=== PATIENT | male | born 1955 | race Caucasian/White ===

== ENCOUNTER 2018-10-09 12:27 | Inpatient (IN) ==
[2018-10-09 12:49] VITALS: BMI 38.0
[2018-10-09 13:33] LABS: BASOPHILS # (AUTO) 0.1 X10^3/uL (0.0-0.1); BASOPHILS % (AUTO) 0.5 % (0.2-1.0); EOSINOPHILS # (AUTO) 0.5 x10^3/uL (0.0-0.2); EOSINOPHILS % (AUTO) 2.5 % (0.9-2.9); HEMATOCRIT 44.9 % (42.0-54.0); HEMOGLOBIN 14.9 g/dL (13.5-18.0); LYMPHOCYTES # (AUTO) 3.4 X10^3/uL (1.3-2.9); LYMPHOCYTES % (AUTO) 18.3 % (21.0-51.0); MEAN CORPUSCULAR HEMOGLOBIN 29.1 pg (27.0-34.0); MEAN CORPUSCULAR HGB CONC 33.2 g/dL (33.0-35.0); MEAN CORPUSCULAR VOLUME 87.5 fL (80.0-100.0); MEAN PLATELET VOLUME 7.1 fL (7.4-11.0); MONOCYTES # (AUTO) 1.1 x10^3/uL (0.3-0.8); MONOCYTES % (AUTO) 6.1 % (0.0-13.0); NEUTROPHILS # (AUTO) 13.5 x10^3/uL (2.2-4.8); NEUTROPHILS % (AUTO) 72.6 % (42.0-75.0); PLATELET COUNT 403 X10^3/uL (150.0-450.0); RED BLOOD COUNT 5.14 X10^6/uL (4.7-6.0); RED CELL DISTRIBUTION WIDTH 15.3 % (11.6-16.5); WHITE BLOOD COUNT 18.6 X10^3/uL (3.6-10.0)
[2018-10-09 13:39] LABS: ACETAMINOPHEN 2.9 ug/mL (10-30); SALICYLATE < 2.8 mg/dL (2.8-20)
[2018-10-09 13:43] LABS: LACTIC ACID 0.5 mmol/L (0.4-2.0)
[2018-10-09 13:47] LABS: ALANINE AMINOTRANSFERASE 23 Units/L (12-78); ALBUMIN 2.8 g/dL (3.4-5.0); ALKALINE PHOSPHATASE 87 Units/L (46-116); ASPARTATE AMINO TRANSFERASE 10 Units/L (15-37); BLOOD ALCOHOL < 3 mg/dL (0-19.9); BLOOD UREA NITROGEN 8 mg/dL (7-18); CALCIUM 9.4 mg/dL (8.5-10.1); CARBON DIOXIDE 29.3 mmol/L (21-32); CHLORIDE 99 mmol/L (98-107); COR CA(FOR HYPOALB) 10.4 mg/dL (8.5-10.1); COR NA(FOR HYPERGLY) 136 mmol/L (136-145); CREATININE 0.51 mg/dL (0.70-1.30); SODIUM 135 mmol/L (136-145); TOTAL PROTEIN 6.9 g/dL (6.4-8.2); eGFR NON BLACK RACES > 60 (>60)
--- NOTE | 2018-10-09 14:07 | DR.GENAD ---
HPI Time Seen Time Seen by Provider: 10/09/18 14:05 PCP Primary Care Physician: jeri HPI Comment HPI Comment: PATIENT SAID ABSCESS STARTED DRAINING YESTERDAY. HE HAS BEING RUNNIONG FEVER AT HOME. HE IS ALSO HERE WITH AFFINDAVIT TO APPREHENT FOR MENTAL HEALTH AND TREATMENT FOR SUBSTANCE USE DISORDER. PATIENT BELIEVE HE IS INFESTED WITH DEER MITE FOR FEW BONTHS NOW. IT CAUSES ITCHING AND FEEL THESE MITES MOVING UNDER HIS SKIN. PATIENT IS A DIABETIC AND HAVE HYPERTENSION ALSO. Complaint/Symptoms Chief Complaint Doctors Comments: DRAINING ABSCESS OCCIPITAL SCALP AND CELLULITIS SCALP AND LEFT FACE. Chief Complaint:: patient stated he has had deer mites in his head for the past 6 months. he stated the back of his head had the worst infestation and it finally busted abd has been draining. Nurses notes reviewed Nurses Notes Review: Yes Source History Provided: Patient Mode of Arrival Mode of Arrival: Ambulatory Timing Onset of Chief Complaint: 09/25/18 Came on: Gradually Duration Duration: Constant Duration: Days Location Location: SCALP. Severity Severity: Moderate Other History Other History: HTN, DM. PMH PMH Past Medical History: Yes Past Medical History: COPD, Diabetes and Hypertension Past Surgical History: Yes Surgical History: Appendectomy, Bowel Resection, Cholecystectomy, Tonsillectomy and Lithotripsy Family History History of Family Medical Conditions: Yes Family Medical History: Diabetes Mellitus, SC and Hypertension Social History Does patient currently use any type of tobacco product: Yes Have you used tobacco products in the last 12 months: Yes Type of Tobacco Use: Cigarettes How many years tobacco product used: 30 Does any household member use tobacco: No Alcohol Use: None Do you use any recreational Drugs:: No Lives With: Family Lives Where: Home infectious screening In the last 2 months have you had wt loss of >10#?: YES Have you had fever, night sweats or hemotysis?: No Have you traveled outside the country in the last 6 months?: No Isolation: Standard ROS Review of Systems Constitutional: Fever Eyes: No Symptoms Reported ENTM: No Symptoms Reported Respiratoy: Non-Productive Cough Cardiovascular: No Symptoms Reported Gastrointestinal/Abdominal: No Symptoms Reported Genitourinary: No Symptoms Reported Neurological: Headache Musculoskeletal: Other (SCALP AND LEFT FACE PAIN.) Integumentary: Change in Color, Rash, Itching and Wound (ABSCESS AND CELLULITIS SCALP AND LEFT FACE.) Hematologic/Lymphatic: Easy Bleeding and Easy Bruising Endocrine: No Symptoms Reported Psychiatric: No Symptoms Reported All Other Systems: Reviewed and Negative PE Vital Signs Vitals: Temperature 98.6 F Pulse Rate [Left Brachial] 81 Pulse Rate 103 Respiratory Rate 18 Blood Pressure [Right Arm] 162/109 Blood Pressure [Left Arm] 147/97 Blood Pressure 152/95 O2 Sat by Pulse Oximetry 99 General Limitations: No Limitations General Appearance: Alert and In No Apparent Distress Head Head Exam: Atraumatic (SCALP ABSCESS AND CELLULITIS.) and Other (LEFT FACIAL CELLULITIS. ) Eyes Eye exam: Normal Appearance, PERRL and EOMI; negative Scleral Icterus and Conjunctival Injection ENT ENT Exam: Normal Oropharynx, Normal External Ear Exam and TM's Normal Bilaterally External Ear Exam: Normal External Inspection TM/Canal Exam: Bilateral: Normal Nose Exam: Normal Nose Exam Mouth Exam: Normal Inspection Throat Exam: Normal Inspection Neck Neck Exam: Trachea Midline; negative Tenderness, Meningismus and Lymphadenopathy Respiratory Respiratory Exam: Normal Lung Sounds Bilat Respiratory Exam: Bilateral: Clear to Auscultation Cardiovascular Cardiovascular Exam: Regular Rate and Normal Rhythm Abdominal Exam Abdominal Exam: Normal Bowel Sounds and Soft; negative Tenderness Extremities Extremities Exam: Normal Inspection Back Back Exam: Normal Inspection Neurologic Neurological Exam: Alert, Oriented X3 and CN II-XII Intact; negative Motor Sensory Deficit Psychiatric Psychiatric Exam: Normal Affect and Normal Mood Skin Skin Exam: Warm MDM Differential Diagnosis Differential Diagnosis: ABSCESS AND CELLULITIS SCALP AND LEFT FACE. COURSE Treatment Treatment: SEE ORDERS. Consultation Consultation Comments: SURGICAL CONSULT TO DR. CULVER. DR. NAQVI WILL ADMIT PATIENT. Education/Counseling Education/Counseling: Patient Educated On: Diagnosis ROR Labs Reviewed Laboratory Results Reviewed?: Yes Result Diagrams: 10/09/18 13:11 10/09/18 13:11 Laboratory: 10/09/18 15:12 Head Gram Stain - Final WBC 18.6 X10^3/uL (3.6-10.0) H 10/09/18 13:11 RBC 5.14 X10^6/uL (4.7-6.0) 10/09/18 13:11 Hgb 14.9 g/dL (13.5-18.0) 10/09/18 13:11 Hct 44.9 % (42.0-54.0) 10/09/18 13:11 MCV 87.5 fL (80.0-100.0) 10/09/18 13:11 MCH 29.1 pg (27.0-34.0) 10/09/18 13:11 MCHC 33.2 g/dL (33.0-35.0) 10/09/18 13:11 RDW 15.3 % (11.6-16.5) 10/09/18 13:11 Plt Count 403 X10^3/uL (150.0-450.0) 10/09/18 13:11 MPV 7.1 fL (7.4-11.0) L 10/09/18 13:11 Neut % (Auto) 72.6 % (42.0-75.0) 10/09/18 13:11 Lymph % (Auto) 18.3 % (21.0-51.0) L 10/09/18 13:11 [place] % (Auto) 6.1 % (0.0-13.0) 10/09/18 13:11 Eos % (Auto) 2.5 % (0.9-2.9) 10/09/18 13:11 Baso % (Auto) 0.5 % (0.2-1.0) 10/09/18 13:11 Neut # (Auto) 13.5 x10^3/uL (2.2-4.8) H 10/09/18 13:11 Lymph # (Auto) 3.4 X10^3/uL (1.3-2.9) H 10/09/18 13:11 [place] # (Auto) 1.1 x10^3/uL (0.3-0.8) H 10/09/18 13:11 Eos # (Auto) 0.5 x10^3/uL (0.0-0.2) H 10/09/18 13:11 Baso # (Auto) 0.1 X10^3/uL (0.0-0.1) 10/09/18 13:11 Absolute Nucleated RBC 0.0 /100WBC 10/09/18 13:11 Sodium 135 mmol/L (136-145) L 10/09/18 13:11 Corrected Sodium 136 mmol/L (136-145) 10/09/18 13:11 Potassium 3.8 mmol/L (3.5-5.1) 10/09/18 13:11 Chloride 99 mmol/L (98-107) 10/09/18 13:11 Carbon Dioxide 29.3 mmol/L (21-32) 10/09/18 13:11 BUN 8 mg/dL (7-18) 10/09/18 13:11 Creatinine 0.51 mg/dL (0.70-1.30) L 10/09/18 13:11 Est GFR (MDRD) Af Amer > 60 (>60) 10/09/18 13:11 Est GFR (MDRD) Non-Af > 60 (>60) 10/09/18 13:11 Glucose 152 mg/dL (65-99) H 10/09/18 13:11 Lactic Acid 0.5 mmol/L (0.4-2.0) 10/09/18 13:11 Calcium 9.4 mg/dL (8.5-10.1) 10/09/18 13:11 Corrected Calcium 10.4 mg/dL (8.5-10.1) H 10/09/18 13:11 Total Bilirubin 0.20 mg/dL (0.2-1.0) 10/09/18 13:11 AST 10 Units/L (15-37) L 10/09/18 13:11 ALT 23 Units/L (12-78) 10/09/18 13:11 Alkaline Phosphatase 87 Units/L (46-116) 10/09/18 13:11 Total Protein 6.9 g/dL (6.4-8.2) 10/09/18 13:11 Albumin 2.8 g/dL (3.4-5.0) L 10/09/18 13:11 Globulin 4.1 g/dL (2.5-4.5) 10/09/18 13:11 Albumin/Globulin Ratio 0.7 Ratio (1.1-2.1) L 10/09/18 13:11 Specimen Type Clean catch urine 10/09/18 14:19 Urine Color Yellow (YELLOW) 10/09/18 14:19 Urine Appearance Clear (CLEAR) 10/09/18 14:19 Urine pH 7.0 (5.0 - 8.0) 10/09/18 14:19 Ur Specific [place] 1.010 (1.000-1.030) 10/09/18 14:19 Urine Protein Negative (NEGATIVE) 10/09/18 14:19 Urine Glucose (UA) Negative (NEGATIVE) 10/09/18 14:19 Urine Ketones Negative (NEGATIVE) 10/09/18 14:19 Urine Occult Blood Negative (NEGATIVE) 10/09/18 14:19 Urine Nitrite Negative (NEGATIVE) 10/09/18 14:19 Urine Bilirubin Negative (NEGATIVE) 10/09/18 14:19 Urine Urobilinogen Normal (NORMAL) 10/09/18 14:19 Ur Leukocyte Esterase Negative (NEGATIVE) 10/09/18 14:19 Salicylates < 2.8 mg/dL (2.8-20) L 10/09/18 13:11 Urine Opiates Screen Negative (NEG=<300) 10/09/18 14:19 Urine Methadone Screen Negative (NEG=<300) 10/09/18 14:19 Acetaminophen 2.9 ug/mL (10-30) L 10/09/18 13:11 Ur Barbiturates Screen Negative (NEG=<200) 10/09/18 14:19 Ur Phencyclidine Scrn Negative (NEG=<25) 10/09/18 14:19 Ur Amphetamines Screen Positive (NEG=<1000) 10/09/18 14:19 U Benzodiazepines Scrn Negative (NEG=<200) 10/09/18 14:19 Urine Cocaine Screen Positive (NEG=<300) 10/09/18 14:19 U Marijuana (THC) Screen Negative (NEG=<50) 10/09/18 14:19 Ethyl Alcohol mg/dL < 3 mg/dL (0-19.9) 10/09/18 13:11 XRAY XRAY Interpreted by: Radiologist XRAY Findings: REPORT DISCUSS WITH PATIENT. Diagnosis Discharge Problem: Abscess or cellulitis of scalp, Cellulitis, face
[2018-10-09 14:31] LABS: BILIRUBIN,URINE NEGATIVE (NEGATIVE); BLOOD/HEMOGLOBIN,URINE NEGATIVE (NEGATIVE); GLUCOSE, URINE NEGATIVE (NEGATIVE); KETONES,URINE NEGATIVE (NEGATIVE); LEUKOCYTE ESTERASE ,URINE NEGATIVE (NEGATIVE); NITRITES,URINE NEGATIVE (NEGATIVE); PROTEIN,URINE NEGATIVE (NEGATIVE); UROBILINOGEN,URINE NORMAL (NORMAL)
[2018-10-09] MEDS ORDERED: NS 500 ML IV 500 ML IV ONE (14:34)
[2018-10-09 14:35] LABS: APPEARANCE,URINE CLEAR (CLEAR); COLOR,URINE YELLOW (YELLOW)
[2018-10-09] MEDS ORDERED: NS 1000 ML 1,000 ML ONE (15:01)
[2018-10-09] MEDS: NS 1000 ML 1,000 ML IV SCH ×2 (15:12→18:00)
--- NOTE | 2018-10-09 15:37 | CT ---
STUDY: CT HEAD WITHOUT CONTRAST HISTORY: Soft tissue deformities. Sores to soft tissue areas around head and face. TECHNIQUE: Multiple axial images of the head were obtained from the skull base to the vertex without administration of IV contrast. Automated exposure control (AEC) was utilized to adjust the MA and/or kV. COMPARISON: None. FINDINGS: The sulci, cisterns and ventricles are age appropriate. There is no evidence of acute territorial infarction, hemorrhage, mass, mass effect, or midline shift. There are no abnormal intra-axial or extra-axial fluid collections. There is abnormal soft tissue mass, with inflammatory stranding and possible abnormal fluid collection involving the left parietal scalp near the vertex. Overall, this measures approximately a 11 cm in diameter. There is a component that lies very close to the left parietal and occipital bones, which may be subgaleal in location. There is a more superficial component. There is a complex fluid collection at its tip which measures 1.4 x 2.7 cm. There is a 2nd abnormal focus of inflammatory change and possible early abscess formation overlying the posterior margin of the right zygomatic arch, anterior to the parotid gland. This measures approximately 2.8 x 1.4 cm. IMPRESSION: 1. Soft tissue masses with associated abnormal inflammatory stranding over the left parietal bone near the vertex, and over the right temporal region near the zygomatic arch. Imaging characteristics favor an infectious or inflammatory process with abscess formation. 2. No evidence of acute intracranial abnormality. Reported By:
[2018-10-09] MEDS ORDERED: VERSED ONE (15:59)
[2018-10-09] MEDS ORDERED: EPHEDRINE SULFATE INJ ONE (15:59)
[2018-10-09] MEDS ORDERED: SUPRANE IN ONE (15:59)
[2018-10-09] MEDS ORDERED: DIPRIVAN VIAL ONE (15:59)
[2018-10-09] MEDS ORDERED: LEVAQUIN PREMIX IV 750 MG 750 MG/150 ML BAG IV ONE ×2 (16:15→16:28)
[2018-10-09] MEDS ORDERED: PHARMACY CONSULT - VANCOMYCIN XX SCH (17:00)
[2018-10-09] MEDS ORDERED: VANCOMYCIN 1 GRAM PREMIX (ADDVANTAGE) 250 ML IV ONE (17:20)
[2018-10-09] MEDS ORDERED: FENTANYL INJ 100 mcg ONE ×2 (17:45→18:59)
[2018-10-09] MEDS ORDERED: VANCOMYCIN HCL 1 GM VIAL 1 G in D5W 250 ML IV 250 ML IV SCH ×2 (18:00→22:00)
[2018-10-09] MEDS ORDERED: DILAUDID INJ IVP PRN (19:47)
[2018-10-09] MEDS ORDERED: PHENERGAN INJ 25 MG IVP PRN (19:47)
[2018-10-09] MEDS ORDERED: REGLAN INJ 10 MG VIAL IVP PRN (19:47)
[2018-10-09] MEDS ORDERED: ZOFRAN INJ 4 MG VIAL IVP PRN (19:47)
[2018-10-09] MEDS ORDERED: BENADRYL INJ 50 MG VIAL IVP PRN (19:47)
[2018-10-09] MEDS: SNACK - Diabetic Appropriate PO SCH (20:00)
[2018-10-09] MEDS ORDERED: DILAUDID INJ ONE (20:00)
[2018-10-09] MEDS ORDERED: RESTORIL CAP 15 MG PO PRN (20:48)
[2018-10-09] MEDS: DILAUDID INJ IVP PRN (23:00)
[2018-10-10] MEDS: DILAUDID INJ IVP PRN ×3 (04:10→17:45)
[2018-10-10] MEDS: NS 1000 ML 1,000 ML IV SCH ×7 (04:23→17:28)
[2018-10-10 05:16] LABS: BASOPHILS # (AUTO) 0.1 X10^3/uL (0.0-0.1); BASOPHILS % (AUTO) 0.5 % (0.2-1.0); EOSINOPHILS # (AUTO) 0.4 x10^3/uL (0.0-0.2); EOSINOPHILS % (AUTO) 2.8 % (0.9-2.9); HEMATOCRIT 39.6 % (42.0-54.0); LYMPHOCYTES # (AUTO) 3.6 X10^3/uL (1.3-2.9); LYMPHOCYTES % (AUTO) 26.4 % (21.0-51.0); MEAN CORPUSCULAR HEMOGLOBIN 29.2 pg (27.0-34.0); MEAN CORPUSCULAR HGB CONC 32.6 g/dL (33.0-35.0); MEAN CORPUSCULAR VOLUME 89.6 fL (80.0-100.0); MEAN PLATELET VOLUME 7.1 fL (7.4-11.0); MONOCYTES # (AUTO) 0.9 x10^3/uL (0.3-0.8); NEUTROPHILS # (AUTO) 8.6 x10^3/uL (2.2-4.8); NEUTROPHILS % (AUTO) 63.3 % (42.0-75.0); PLATELET COUNT 383 X10^3/uL (150.0-450.0); RED BLOOD COUNT 4.42 X10^6/uL (4.7-6.0); RED CELL DISTRIBUTION WIDTH 15.3 % (11.6-16.5); WHITE BLOOD COUNT 13.6 X10^3/uL (3.6-10.0)
[2018-10-10 05:27] LABS: ALANINE AMINOTRANSFERASE 27 Units/L (12-78); ALBUMIN 2.2 g/dL (3.4-5.0); ALKALINE PHOSPHATASE 98 Units/L (46-116); ASPARTATE AMINO TRANSFERASE 26 Units/L (15-37); BLOOD UREA NITROGEN 10 mg/dL (7-18); CALCIUM 8.3 mg/dL (8.5-10.1); CHLORIDE 101 mmol/L (98-107); COR CA(FOR HYPOALB) 9.7 mg/dL (8.5-10.1); COR NA(FOR HYPERGLY) 140 mmol/L (136-145); CREATININE 0.59 mg/dL (0.70-1.30); SODIUM 138 mmol/L (136-145); TOTAL PROTEIN 5.6 g/dL (6.4-8.2); eGFR NON BLACK RACES > 60 (>60)
[2018-10-10 05:53] LABS: HEMOGLOBIN 12.9 g/dL (13.5-18.0)
[2018-10-10] MEDS: VISTARIL PO PRN ×2 (06:18→17:45)
[2018-10-10] MEDS: VANCOMYCIN HCL 1 GM VIAL 1 G in D5W 250 ML IV 250 ML IV SCH ×3 (08:00→22:00)
[2018-10-10] MEDS: LEVAQUIN PREMIX IV 750 MG 750 MG/150 ML BAG IV SCH (08:00)
[2018-10-10] MEDS ORDERED: VANCOMYCIN HCL 1 GM VIAL 1 G in D5W 250 ML IV 250 ML IV SCH (09:00)
[2018-10-10] MEDS ORDERED: FLEXERIL TAB 10 MG PO PRN (09:08)
[2018-10-10] MEDS ORDERED: ZOFRAN TAB 4 MG PO PRN (09:22)
[2018-10-10] MEDS: LOTENSIN TAB 10 MG PO SCH (11:24)
[2018-10-10] MEDS: VITAMIN C PO SCH (11:24)
[2018-10-10] MEDS: K-DUR TAB 20 MEQ PO SCH (11:24)
[2018-10-10] MEDS: PROTONIX TAB 40 MG PO SCH (11:25)
[2018-10-10] MEDS: TAB-A-VITE PO SCH (11:25)
[2018-10-10] MEDS: NEURONTIN CAP 400 MG PO SCH ×3 (11:25→22:00)
[2018-10-10] MEDS: MOBIC TAB 15 MG PO SCH (11:25)
[2018-10-10] MEDS: NORVASC TAB 10 MG PO SCH (11:25)
[2018-10-10] MEDS: M.S. CONTIN 15 MG (EXTENDED RELEASE) PO PRN (11:26)
--- NOTE | 2018-10-10 14:33 | DR.H&P ---
H&P - History & Physical for Day of: H&P Date: 10/09/18 - Chief Complaint Chief Complaint: ABSCESS TO SCALP - History of Present Illness History of Present Illness: IS A 63 YEAR OLD PATIENT OF OURS WHO PRESENTED TO THE ER WITH COMPLAINTS OF A DRAINING ABSCESS TO THE SCALP. PATIENT WAS BROUGHT TO THE ER BY A DEPUTY ON A 08-04 FOR A MENTAL HEALTH EVAULATION AND CLEARANCE DUE TO SUBSTANCE USE DISORDER. PATIENT STATES THAT HE BELIEVES THAT HIS SCALP IS INFECTED WITH DEER MITES. HE STATES THAT IT IS CAUSING ITCHING. HE REPORTS THAT SYMPTOMS STARTED A FEW MONTHS AGO. PATIENT HAS A HISTORY OF DIABETES AND HYPERTENSION. ON EXAMINATION, THERE IS MULTIPLE DRAINING ABSCESSES TO THE OCCIPITAL SCALP WELL CELLULITIS TO THE SCALP AND LEFT SIDE FACE. ON ARRIVAL, VITALS WERE 98.3-103-18-98%-152/95. LABS WERE OBTAINED. ABNORMAL LAB V ALUES INCLUDE THE FOLLOWING: WBC 18.6, SODIUM 135, CREATININE 0.51, GLUCOSE 152, AST 10, ALBUMIN 2.8. URINALYSIS WNL. TOXICOLOGY POSITIVE FOR AMPHETAMINES AND COCAINE. WOUND AND BLOOD CULTURES WERE OBTAINED. A BRAIN CT WAS OBTAINED AND REVEALED: Soft tissue masses with associated abnormal inflammatory stranding over the left parietal bone near the vertex, and over the right temporal region near the zygomatic arch. Imaging characteristics favor an infectious or inflammatory process with abscess formation. No evidence of acute intracranial abnormality. EKG REVEALED: SINUS RHYTHM WITH HR 98. WAS CONSULTED FOR I&D OF WOUND. PATIENT WAS TAKEN TO THE OR FOR DEBRIDEMENT OF WOUNDS. HE WAS THEN ADMITTED FOR FURTHER EVALUATION AND TREATMENT OF CELLULITIS OF THE SCALP AND FACE, SCALP ABSCESS, AND SUBSTANCE ABUSE. HE WAS STARTED ON LEVAQUIN IV, VANCOMYCIN IV, AND NORMAL SALINE AT 125ML/HR. WE PLAN TO FOLLOW UP WITH AM LABS AND CONTINUE TO MONITOR. - Past Medical History Past Medical History: Hypertension, Diabetes, COPD - Past Surgical History Surgical History: Appendectomy, Bowel Resection, Cholecystectomy, Tonsillectomy, Other - Family History Family Medical History: Cancer - Social History Does patient currently use any type of tobacco product: Yes Have you used tobacco products in the last 12 months: Yes Type of Tobacco Use: Cigarettes How many years tobacco product used: 30 Does any household member use tobacco: No Alcohol Use: None Drug Use: Cocaine, Methamphetamine - Medications Home Medications: SULFA DRUGS Allergy (Uncoded 10/09/18 12:30) - Review of Systems Constitutional: Fever, Weakness Eyes: No Symptoms Reported ENT: No Symptoms Reported Respiratory: No Symptoms Reported Cardiovascular: No Symptoms Reported Gastrointestinal: No Symptoms Reported Genitourinary: No Symptoms Reported Musculoskeletal: No Symptoms Reported Skin: See HPI, Wound (MULTIPLE ABSCESSES TO SCALP ) Neurological: Weakness - Physical Exam Vital Signs: Temperature 97.7 F Pulse Rate [Left Brachial] 90 Pulse Rate 118 Respiratory Rate 20 Blood Pressure [Right Arm] 139/76 Blood Pressure [Left Arm] 147/97 Blood Pressure 138/78 O2 Sat by Pulse Oximetry 98 Oriented: Person, Place Eyes: Normal Ear: Normal Nose: Normal Throat: Normal Respiratory: Diminished Throughout Cardiovascular: Tachycardia. negative: S3, S4, Murmur : Normal Auscultation: Bowel Sounds: Normal Palpation: Normal Tenderness: Normal Skin: Tender, Wound Musculoskeletal: Normal Psychiatric: Normal Mood Description: Calm Affect: Normal Speech Pattern: Clear - Assessment/Plan (1) Abscess or cellulitis of scalp Status: Acute Plan: WOUND CARE, VANCOMYCIN IV, LEVAQUIN IV, CONTINUE TO MONITOR (2) Cellulitis, face Status: Acute Plan: WOUND CARE, VANCOMYCIN IV, LEVAQUIN IV, CONTINUE TO MONITOR (3) Substance abuse Status: Acute - Allergies Allergies/Adverse Reactions: Allergies Allergy/AdvReac Type Severity Reaction Status Date / Time SULFA DRUGS Allergy Uncoded 10/09/18 12:30
--- NOTE | 2018-10-10 15:57 | PCM.PROG ---
Progress Note - Progress Note for Day of Date of Exam: 10/10/18 - Subjective Subjective: WAS ADMITTED FOR SCALP ABSCESSES, CELLULITIS TO THE SCALP AND LEFT SIDE FACE, AND SUBSTANCE ABUSE. EXTENSIVELY DEBRIDED WOUNDS TO THE SCALP AND SIDE OF FACE LAST NIGHT. WOUNDS WERE PACKED WITH IODIFORM AND NEW CULTURES WERE OBTAINED. TODAY, HE IS ALERT AND ORIENTED, SITTING ON THE SIDE OF THE BED ON MORNING ROUNDS. HE COMPLAINS OF A HEADACHE AND ITCHING TO THE SCALP THIS MORNING. ON EXAMINATION, HEART IS REGULAR IN RATE AND RHYTHM. BILATERAL LUNGS ARE NOTED WITH DIMINISHED LUNG SOUNDS THROUGHOUT. ABDOMEN IS ROUND, SOFT, AND NON-TENDER WITH NORMAL BOWEL SOUNDS NOTED IN ALL QUADRANTS. DRESSING NOTED TO TOP OF HEAD DRY AND INTACT. IS MONITORING WOUNDS. HIS VITALS THIS MORNING ARE 97.8-78-20-94%-158/87. LABS WERE OBTAINED. ABNORMAL LAB VALUES INCLUDE THE FOLLOWING: WBC 13.6, RBC 4.42, HGB 12.9, HCT 39.6, CREATININE 0.59, GLUCOSE 180, CALCIUM 8.3, TOTAL BILI 0.10, TOTAL PROTEIN 5.6, ALBUMIN 2.2. HE IS CURRENTLY RECEIVING LEVAQUIN IV AND VANCOMYCIN IV. TODAY, WE WILL REVIEW HIS HOME MEDICATIONS AND RESUME APPROPRIATE. OTHERWISE, WE WILL CONTINUE WITH CURRENT PLAN OF CARE. WE WILL FOLLOW UP WITH AM LABS AND CONTINUE TO MONITOR. - Past Medical Family Social History Past Med/Fam/Surg Hx: No changes since H&P Allergies: Allergies SULFA DRUGS Allergy (Uncoded 10/09/18 12:30) - Review of Systems ROS: No change since H&P - Vital Signs and I&O's Vital Signs: Temperature 97.7 F Pulse Rate [Left Brachial] 90 Pulse Rate 118 Respiratory Rate 20 Blood Pressure [Right Arm] 139/76 Blood Pressure [Left Arm] 147/97 Blood Pressure 138/78 O2 Sat by Pulse Oximetry 98 Intake and Output: Intake & Output 10/08/18 10/09/18 10/10/18 10/11/18 11:59 11:59 11:59 11:59 Intake Total 2019 1000 / 1000 Output Total 375 / 375 Balance 1645 / 1645 1000 / 1000 - Physical Exam Oriented: Normal Eyes: Normal Ear: Normal Nose: Normal Throat: Normal Cardiovascular: Tachycardia. negative: S3, S4, Murmur : Normal Auscultation: Bowel Sounds: Normal Palpation: Normal Tenderness: Normal Skin: Tender, Wound Musculoskeletal: Normal Psychiatric: Normal Mood Description: Calm Affect: Normal Speech Pattern: Clear - Laboratory and Diagnostics Result Diagrams: 10/10/18 04:00 10/10/18 04:00 Labs: 10/09/18 19:15 Scalp Gram Stain - Final 10/09/18 19:15 Scalp Wound Culture - Preliminary 10/09/18 19:10 Face Gram Stain - Final 10/09/18 19:10 Face Wound Culture - Preliminary 10/09/18 15:12 Head Gram Stain - Final 10/09/18 15:12 Head Wound Culture - Preliminary Laboratory WBC 13.6 X10^3/uL (3.6-10.0) H 10/10/18 04:00 RBC 4.42 X10^6/uL (4.7-6.0) L 10/10/18 04:00 Hgb 12.9 g/dL (13.5-18.0) L D 10/10/18 04:00 Hct 39.6 % (42.0-54.0) L 10/10/18 04:00 MCV 89.6 fL (80.0-100.0) 10/10/18 04:00 MCH 29.2 pg (27.0-34.0) 10/10/18 04:00 MCHC 32.6 g/dL (33.0-35.0) L 10/10/18 04:00 RDW 15.3 % (11.6-16.5) 10/10/18 04:00 Plt Count 383 X10^3/uL (150.0-450.0) 10/10/18 04:00 MPV 7.1 fL (7.4-11.0) L 10/10/18 04:00 Neut % (Auto) 63.3 % (42.0-75.0) 10/10/18 04:00 Lymph % (Auto) 26.4 % (21.0-51.0) 10/10/18 04:00 [place] % (Auto) 7.0 % (0.0-13.0) 10/10/18 04:00 Eos % (Auto) 2.8 % (0.9-2.9) 10/10/18 04:00 Baso % (Auto) 0.5 % (0.2-1.0) 10/10/18 04:00 Neut # (Auto) 8.6 x10^3/uL (2.2-4.8) H 10/10/18 04:00 Lymph # (Auto) 3.6 X10^3/uL (1.3-2.9) H 10/10/18 04:00 [place] # (Auto) 0.9 x10^3/uL (0.3-0.8) H 10/10/18 04:00 Eos # (Auto) 0.4 x10^3/uL (0.0-0.2) H 10/10/18 04:00 Baso # (Auto) 0.1 X10^3/uL (0.0-0.1) 10/10/18 04:00 Absolute Nucleated RBC 0.0 /100WBC 10/10/18 04:00 Sodium 138 mmol/L (136-145) 10/10/18 04:00 Corrected Sodium 140 mmol/L (136-145) 10/10/18 04:00 Potassium 3.6 mmol/L (3.5-5.1) 10/10/18 04:00 Chloride 101 mmol/L (98-107) 10/10/18 04:00 Carbon Dioxide 30.0 mmol/L (21-32) 10/10/18 04:00 BUN 10 mg/dL (7-18) 10/10/18 04:00 Creatinine 0.59 mg/dL (0.70-1.30) L 10/10/18 04:00 Est GFR (MDRD) Af Amer > 60 (>60) 10/10/18 04:00 Est GFR (MDRD) Non-Af > 60 (>60) 10/10/18 04:00 Glucose 180 mg/dL (65-99) H 10/10/18 04:00 POC Glucose (mg/dL) 128 mg/dL (65-99) H 10/10/18 10:55 Lactic Acid 0.5 mmol/L (0.4-2.0) 10/09/18 13:11 Calcium 8.3 mg/dL (8.5-10.1) L 10/10/18 04:00 Corrected Calcium 9.7 mg/dL (8.5-10.1) 10/10/18 04:00 Total Bilirubin 0.10 mg/dL (0.2-1.0) L 10/10/18 04:00 AST 26 Units/L (15-37) 10/10/18 04:00 ALT 27 Units/L (12-78) 10/10/18 04:00 Alkaline Phosphatase 98 Units/L (46-116) 10/10/18 04:00 Total Protein 5.6 g/dL (6.4-8.2) L 10/10/18 04:00 Albumin 2.2 g/dL (3.4-5.0) L 10/10/18 04:00 Globulin 3.4 g/dL (2.5-4.5) 10/10/18 04:00 Albumin/Globulin Ratio 0.6 Ratio (1.1-2.1) L 10/10/18 04:00 Specimen Type Clean catch urine 10/09/18 14:19 Urine Color Yellow (YELLOW) 10/09/18 14:19 Urine Appearance Clear (CLEAR) 10/09/18 14:19 Urine pH 7.0 (5.0 - 8.0) 10/09/18 14:19 Ur Specific [place] 1.010 (1.000-1.030) 10/09/18 14:19 Urine Protein Negative (NEGATIVE) 10/09/18 14:19 Urine Glucose (UA) Negative (NEGATIVE) 10/09/18 14:19 Urine Ketones Negative (NEGATIVE) 10/09/18 14:19 Urine Occult Blood Negative (NEGATIVE) 10/09/18 14:19 Urine Nitrite Negative (NEGATIVE) 10/09/18 14:19 Urine Bilirubin Negative (NEGATIVE) 10/09/18 14:19 Urine Urobilinogen Normal (NORMAL) 10/09/18 14:19 Ur Leukocyte Esterase Negative (NEGATIVE) 10/09/18 14:19 Salicylates < 2.8 mg/dL (2.8-20) L 10/09/18 13:11 Urine Opiates Screen Negative (NEG=<300) 10/09/18 14:19 Urine Methadone Screen Negative (NEG=<300) 10/09/18 14:19 Acetaminophen 2.9 ug/mL (10-30) L 10/09/18 13:11 Ur Barbiturates Screen Negative (NEG=<200) 10/09/18 14:19 Ur Phencyclidine Scrn Negative (NEG=<25) 10/09/18 14:19 Ur Amphetamines Screen Positive (NEG=<1000) 10/09/18 14:19 U Benzodiazepines Scrn Negative (NEG=<200) 10/09/18 14:19 Urine Cocaine Screen Positive (NEG=<300) 10/09/18 14:19 U Marijuana (THC) Screen Negative (NEG=<50) 10/09/18 14:19 Ethyl Alcohol mg/dL < 3 mg/dL (0-19.9) 10/09/18 13:11 Tissue Pathology To follow 10/09/18 20:50 - Plan (1) Abscess or cellulitis of scalp Status: Acute Plan: WOUND CARE, VANCOMYCIN IV, LEVAQUIN IV, CONTINUE TO MONITOR (2) Cellulitis, face Status: Acute Plan: WOUND CARE, VANCOMYCIN IV, LEVAQUIN IV, CONTINUE TO MONITOR (3) Substance abuse Status: Acute
--- NOTE | 2018-10-10 16:08 | DR.PROGNOT ---
Hospital Progress Notes - Progress Note for Day of: Progress Note Date: 10/10/18 - Chief Complaint Chief Complaint: post op debridement of large scalp and facial abscesses . feeling better today . mild swelling Rt side of face , no SOOB . G+ Cocci. - Past Medical Family Social History Past Med/Fam/Surg Hx: No changes since H&P Allergies: Allergies SULFA DRUGS Allergy (Uncoded 10/09/18 12:30) - Review Of Systems ROS: No change since H&P - Vital Signs Vital Signs: Temperature 97.7 F Pulse Rate [Left Brachial] 90 Pulse Rate 118 Respiratory Rate 20 Blood Pressure [Right Arm] 139/76 Blood Pressure [Left Arm] 147/97 Blood Pressure 138/78 O2 Sat by Pulse Oximetry 98 - Physical Exam Oriented: Normal Eyes: Normal Ear: Normal Nose: Normal Throat: Normal Cardiovascular: Tachycardia. negative: S3, S4, Murmur : Normal GI:Auscultation: Normal GI:Palpation: Normal GI: Tenderness: Normal Skin: Tender, Wound (dressing intact .mild edema rt side of face ) Musculoskeletal: Normal Psychiatric: Normal Mood Description: Calm Affect: Normal Speech Pattern: Clear - Laboratory and Diagnostics Result Diagrams: 10/10/18 04:00 10/10/18 04:00 Labs: 10/09/18 19:15 Scalp Gram Stain - Final 10/09/18 19:15 Scalp Wound Culture - Preliminary 10/09/18 19:10 Face Gram Stain - Final 10/09/18 19:10 Face Wound Culture - Preliminary 10/09/18 15:12 Head Gram Stain - Final 10/09/18 15:12 Head Wound Culture - Preliminary Laboratory WBC 13.6 X10^3/uL (3.6-10.0) H 10/10/18 04:00 RBC 4.42 X10^6/uL (4.7-6.0) L 10/10/18 04:00 Hgb 12.9 g/dL (13.5-18.0) L D 10/10/18 04:00 Hct 39.6 % (42.0-54.0) L 10/10/18 04:00 MCV 89.6 fL (80.0-100.0) 10/10/18 04:00 MCH 29.2 pg (27.0-34.0) 10/10/18 04:00 MCHC 32.6 g/dL (33.0-35.0) L 10/10/18 04:00 RDW 15.3 % (11.6-16.5) 10/10/18 04:00 Plt Count 383 X10^3/uL (150.0-450.0) 10/10/18 04:00 MPV 7.1 fL (7.4-11.0) L 10/10/18 04:00 Neut % (Auto) 63.3 % (42.0-75.0) 10/10/18 04:00 Lymph % (Auto) 26.4 % (21.0-51.0) 10/10/18 04:00 [place] % (Auto) 7.0 % (0.0-13.0) 10/10/18 04:00 Eos % (Auto) 2.8 % (0.9-2.9) 10/10/18 04:00 Baso % (Auto) 0.5 % (0.2-1.0) 10/10/18 04:00 Neut # (Auto) 8.6 x10^3/uL (2.2-4.8) H 10/10/18 04:00 Lymph # (Auto) 3.6 X10^3/uL (1.3-2.9) H 10/10/18 04:00 [place] # (Auto) 0.9 x10^3/uL (0.3-0.8) H 10/10/18 04:00 Eos # (Auto) 0.4 x10^3/uL (0.0-0.2) H 10/10/18 04:00 Baso # (Auto) 0.1 X10^3/uL (0.0-0.1) 10/10/18 04:00 Absolute Nucleated RBC 0.0 /100WBC 10/10/18 04:00 Sodium 138 mmol/L (136-145) 10/10/18 04:00 Corrected Sodium 140 mmol/L (136-145) 10/10/18 04:00 Potassium 3.6 mmol/L (3.5-5.1) 10/10/18 04:00 Chloride 101 mmol/L (98-107) 10/10/18 04:00 Carbon Dioxide 30.0 mmol/L (21-32) 10/10/18 04:00 BUN 10 mg/dL (7-18) 10/10/18 04:00 Creatinine 0.59 mg/dL (0.70-1.30) L 10/10/18 04:00 Est GFR (MDRD) Af Amer > 60 (>60) 10/10/18 04:00 Est GFR (MDRD) Non-Af > 60 (>60) 10/10/18 04:00 Glucose 180 mg/dL (65-99) H 10/10/18 04:00 POC Glucose (mg/dL) 128 mg/dL (65-99) H 10/10/18 10:55 Lactic Acid 0.5 mmol/L (0.4-2.0) 10/09/18 13:11 Calcium 8.3 mg/dL (8.5-10.1) L 10/10/18 04:00 Corrected Calcium 9.7 mg/dL (8.5-10.1) 10/10/18 04:00 Total Bilirubin 0.10 mg/dL (0.2-1.0) L 10/10/18 04:00 AST 26 Units/L (15-37) 10/10/18 04:00 ALT 27 Units/L (12-78) 10/10/18 04:00 Alkaline Phosphatase 98 Units/L (46-116) 10/10/18 04:00 Total Protein 5.6 g/dL (6.4-8.2) L 10/10/18 04:00 Albumin 2.2 g/dL (3.4-5.0) L 10/10/18 04:00 Globulin 3.4 g/dL (2.5-4.5) 10/10/18 04:00 Albumin/Globulin Ratio 0.6 Ratio (1.1-2.1) L 10/10/18 04:00 Specimen Type Clean catch urine 10/09/18 14:19 Urine Color Yellow (YELLOW) 10/09/18 14: Urine Appearance Clear (CLEAR) 10/09/18 14: Urine pH 7.0 (5.0 - 8.0) 10/09/18 14:19 Ur Specific [place] 1.010 (1.000-1.030) 10/09/18 14:19 Urine Protein Negative (NEGATIVE) 10/09/18 14:19 Urine Glucose (UA) Negative (NEGATIVE) 10/09/18 14:19 Urine Ketones Negative (NEGATIVE) 10/09/18 14:19 Urine Occult Blood Negative (NEGATIVE) 10/09/18 14:19 Urine Nitrite Negative (NEGATIVE) 10/09/18 14:19 Urine Bilirubin Negative (NEGATIVE) 10/09/18 14:19 Urine Urobilinogen Normal (NORMAL) 10/09/18 14:19 Ur Leukocyte Esterase Negative (NEGATIVE) 10/09/18 14:19 Salicylates < 2.8 mg/dL (2.8-20) L 10/09/18 13:11 Urine Opiates Screen Negative (NEG=<300) 10/09/18 14:19 Urine Methadone Screen Negative (NEG=<300) 10/09/18 14:19 Acetaminophen 2.9 ug/mL (10-30) L 10/09/18 13:11 Ur Barbiturates Screen Negative (NEG=<200) 10/09/18 14:19 Ur Phencyclidine Scrn Negative (NEG=<25) 10/09/18 14:19 Ur Amphetamines Screen Positive (NEG=<1000) 10/09/18 14:19 U Benzodiazepines Scrn Negative (NEG=<200) 10/09/18 14:19 Urine Cocaine Screen Positive (NEG=<300) 10/09/18 14:19 U Marijuana (THC) Screen Negative (NEG=<50) 10/09/18 14:19 Ethyl Alcohol mg/dL < 3 mg/dL (0-19.9) 10/09/18 13:11 Tissue Pathology To follow 10/09/18 20:50 - Assessment and Plan 1: Multiple scalp and facial abscesses . s/p debridement . DM.COPD . Drug abuse. same POP care , IV ATB .Diabetic control. future skin graft. - Problem Patient Problems: Patient Problems Abscess or cellulitis of scalp (Acute) L03.811 Cellulitis, face (Acute) L03.211 Substance abuse (Acute) F19.10
[2018-10-10] MEDS: HumuLIN R SUBCUT PRN (16:26)
[2018-10-10] MEDS: SNACK - Diabetic Appropriate PO SCH (20:00)
[2018-10-10] MEDS ORDERED: ZOLOFT PO ONE (20:43)
[2018-10-10] MEDS: KLONOPIN TAB 1 MG PO SCH (20:57)
[2018-10-10] MEDS: ZOLOFT PO SCH (20:57)
[2018-10-10] MEDS: FLOMAX PO SCH (20:57)
[2018-10-10] MEDS: ZyrTEC TAB 10 MG PO SCH (20:58)
[2018-10-10] MEDS: TRICOR TAB 48 MG PO SCH (20:58)
[2018-10-10 22:13] LABS: CREATININE 0.63 mg/dL (0.70-1.30)
[2018-10-11] MEDS: NS 1000 ML 1,000 ML IV SCH ×3 (01:47→17:58)
[2018-10-11] MEDS ORDERED: PHARMACY COMMENT IV NR ×2 (05:30→08:30)
[2018-10-11 05:33] LABS: BASOPHILS # (AUTO) 0.1 X10^3/uL (0.0-0.1); BASOPHILS % (AUTO) 0.5 % (0.2-1.0); EOSINOPHILS # (AUTO) 0.6 x10^3/uL (0.0-0.2); EOSINOPHILS % (AUTO) 5.6 % (0.9-2.9); HEMATOCRIT 37.6 % (42.0-54.0); HEMOGLOBIN 12.5 g/dL (13.5-18.0); LYMPHOCYTES # (AUTO) 3.4 X10^3/uL (1.3-2.9); LYMPHOCYTES % (AUTO) 33.5 % (21.0-51.0); MEAN CORPUSCULAR HEMOGLOBIN 29.6 pg (27.0-34.0); MEAN CORPUSCULAR HGB CONC 33.2 g/dL (33.0-35.0); MEAN CORPUSCULAR VOLUME 89.2 fL (80.0-100.0); MONOCYTES # (AUTO) 0.7 x10^3/uL (0.3-0.8); MONOCYTES % (AUTO) 6.8 % (0.0-13.0); NEUTROPHILS # (AUTO) 5.5 x10^3/uL (2.2-4.8); NEUTROPHILS % (AUTO) 53.6 % (42.0-75.0); PLATELET COUNT 396 X10^3/uL (150.0-450.0); RED BLOOD COUNT 4.21 X10^6/uL (4.7-6.0); RED CELL DISTRIBUTION WIDTH 15.4 % (11.6-16.5); WHITE BLOOD COUNT 10.2 X10^3/uL (3.6-10.0)
[2018-10-11 05:42] LABS: CREATININE 0.57 mg/dL (0.70-1.30); VANCOMYCIN,TROUGH 10.5 ug/mL (15-20)
[2018-10-11 05:53] LABS: ALANINE AMINOTRANSFERASE 21 Units/L (12-78); ALBUMIN 2.2 g/dL (3.4-5.0); ALKALINE PHOSPHATASE 91 Units/L (46-116); ASPARTATE AMINO TRANSFERASE 10 Units/L (15-37); BLOOD UREA NITROGEN 8 mg/dL (7-18); CALCIUM 8.1 mg/dL (8.5-10.1); CARBON DIOXIDE 27.9 mmol/L (21-32); CHLORIDE 104 mmol/L (98-107); COR CA(FOR HYPOALB) 9.5 mg/dL (8.5-10.1); COR NA(FOR HYPERGLY) 142 mmol/L (136-145); CREATININE 0.51 mg/dL (0.70-1.30); SODIUM 141 mmol/L (136-145); TOTAL PROTEIN 5.5 g/dL (6.4-8.2); eGFR NON BLACK RACES > 60 (>60)
[2018-10-11] MEDS: NEURONTIN CAP 400 MG PO SCH ×2 (05:53→13:43)
[2018-10-11] MEDS: VANCOMYCIN HCL 1 GM VIAL 1 G in D5W 250 ML IV 250 ML IV SCH ×3 (05:53→21:55)
[2018-10-11] MEDS: LEVAQUIN PREMIX IV 750 MG 750 MG/150 ML BAG IV SCH (09:21)
--- NOTE | 2018-10-11 10:21 | PCM.PROG ---
Progress Note - Progress Note for Day of Date of Exam: 10/11/18 - Subjective Subjective: WAS ADMITTED FOR SCALP ABSCESSES, CELLULITIS TO THE SCALP AND LEFT SIDE FACE, AND SUBSTANCE ABUSE. EXTENSIVELY DEBRIDED WOUNDS TO THE SCALP AND SIDE OF FACE ON ADMISSION. HE REPORTS THAT PATIENT WILL NEED A SKIN GRAFT IN THE FUTURE. TODAY, HE IS LYING IN BED WITH EYES CLOSED ON MORNING ROUNDS. HE AWAKENS AND RESPONDS TO VERBAL STIMULI. HE DENIES COMPLAINTS THIS MORNING. ON EXAMINATION, DRESSING TO HEAD IS DRY AND INTACT. HEART IS REGULAR IN RATE AND RHYTHM. BILATERAL LUNGS ARE NOTED WITH DIMINISHED LUNG SOUNDS THROUGHOUT. ABDOMEN IS ROUND, SOFT, AND NON-TENDER WITH NORMAL BOWEL SOUNDS NOTED IN ALL QUADRANTS. DRESSING NOTED TO TOP OF HEAD DRY AND INTACT. IS MONITORING WOUNDS. HIS VITALS THIS MORNING ARE 98.3-92-20-92%-118/62. LABS WERE OBTAINED. ABNORMAL LAB VALUES INCLUDE THE FOLLOWING: WBC 10.2, rbc 4.21, hgb 12.5, hct 37.6, creatinine 0.51, glucose 158, calcium 8.1, total bili 0.10, ast 10, total protein 5.5, albumin 2.2. WOUND AND BLOOD CULTURES ARE PENDING. HE IS CURRENTLY RECEIVING LEVAQUIN IV AND VANCOMYCIN IV. TODAY, WE WILL CONTINUE WITH WOUND CARE AND IV ANTIBIOTICS. OTHERWISE, WE WILL FOLLOW UP WITH AM LABS AND CONTINUE TO MONITOR. - Past Medical Family Social History Past Med/Fam/Surg Hx: No changes since H&P Allergies: Allergies SULFA DRUGS Allergy (Uncoded 10/09/18 12:30) - Review of Systems ROS: No change since H&P - Vital Signs and I&O's Vital Signs: Temperature 98.1 F Pulse Rate [Left Brachial] 92 Pulse Rate 118 Respiratory Rate 20 Blood Pressure [Right Arm] 127/64 Blood Pressure [Left Arm] 147/97 Blood Pressure 138/78 O2 Sat by Pulse Oximetry 94 Intake and Output: Intake & Output 10/08/18 10/09/18 10/10/18 10/11/18 11:59 11:59 11:59 11:59 Intake Total 2019 3480 / 3480 Output Total 375 / 375 5950 / 5950 Balance 1645 / 1645 -2470 / -2470 - Physical Exam Oriented: Normal Eyes: Normal Ear: Normal Nose: Normal Throat: Normal Cardiovascular: Tachycardia. negative: S3, S4, Murmur : Normal Auscultation: Bowel Sounds: Normal Palpation: Normal Tenderness: Normal Skin: Tender, Wound (dressing intact .mild edema rt side of face ) Musculoskeletal: Normal Psychiatric: Normal Mood Description: Calm Affect: Normal Speech Pattern: Clear, Appropriate - Laboratory and Diagnostics Result Diagrams: 10/11/18 04:22 10/11/18 04:22 Labs: 10/09/18 15:12 Head Gram Stain - Final 10/09/18 15:12 Head Wound Culture - Final Methicillin Resis Staph Aureus 10/09/18 19:15 Scalp Gram Stain - Final 10/09/18 19:15 Scalp Wound Culture - Final Methicillin Resis Staph Aureus 10/09/18 19:10 Face Gram Stain - Final 10/09/18 19:10 Face Wound Culture - Final Methicillin Resis Staph Aureus Laboratory WBC 10.2 X10^3/uL (3.6-10.0) H 10/11/18 04:22 RBC 4.21 X10^6/uL (4.7-6.0) L 10/11/18 04:22 Hgb 12.5 g/dL (13.5-18.0) L 10/11/18 04:22 Hct 37.6 % (42.0-54.0) L 10/11/18 04:22 MCV 89.2 fL (80.0-100.0) 10/11/18 04:22 MCH 29.6 pg (27.0-34.0) 10/11/18 04:22 MCHC 33.2 g/dL (33.0-35.0) 10/11/18 04:22 RDW 15.4 % (11.6-16.5) 10/11/18 04:22 Plt Count 396 X10^3/uL (150.0-450.0) 10/11/18 04:22 MPV 7.0 fL (7.4-11.0) L 10/11/18 04:22 Neut % (Auto) 53.6 % (42.0-75.0) 10/11/18 04:22 Lymph % (Auto) 33.5 % (21.0-51.0) 10/11/18 04:22 [place] % (Auto) 6.8 % (0.0-13.0) 10/11/18 04:22 Eos % (Auto) 5.6 % (0.9-2.9) H 10/11/18 04:22 Baso % (Auto) 0.5 % (0.2-1.0) 10/11/18 04:22 Neut # (Auto) 5.5 x10^3/uL (2.2-4.8) H 10/11/18 04:22 Lymph # (Auto) 3.4 X10^3/uL (1.3-2.9) H 10/11/18 04:22 [place] # (Auto) 0.7 x10^3/uL (0.3-0.8) 10/11/18 04:22 Eos # (Auto) 0.6 x10^3/uL (0.0-0.2) H 10/11/18 04:22 Baso # (Auto) 0.1 X10^3/uL (0.0-0.1) 10/11/18 04:22 Absolute Nucleated RBC 0.1 /100WBC 10/11/18 04:22 Sodium 141 mmol/L (136-145) 10/11/18 04:22 Corrected Sodium 142 mmol/L (136-145) 10/11/18 04:22 Potassium 3.5 mmol/L (3.5-5.1) 10/11/18 04:22 Chloride 104 mmol/L (98-107) 10/11/18 04:22 Carbon Dioxide 27.9 mmol/L (21-32) 10/11/18 04:22 BUN 8 mg/dL (7-18) 10/11/18 04:22 Creatinine 0.51 mg/dL (0.70-1.30) L 10/11/18 04:22 Est GFR (MDRD) Af Amer > 60 (>60) 10/11/18 04:22 Est GFR (MDRD) Non-Af > 60 (>60) 10/11/18 04:22 Glucose 158 mg/dL (65-99) H 10/11/18 04:22 POC Glucose (mg/dL) 150 mg/dL (65-99) H 10/11/18 05:24 Lactic Acid 0.5 mmol/L (0.4-2.0) 10/09/18 13:11 Calcium 8.1 mg/dL (8.5-10.1) L 10/11/18 04:22 Corrected Calcium 9.5 mg/dL (8.5-10.1) 10/11/18 04:22 Total Bilirubin 0.10 mg/dL (0.2-1.0) L 10/11/18 04:22 AST 10 Units/L (15-37) L 10/11/18 04:22 ALT 21 Units/L (12-78) 10/11/18 04:22 Alkaline Phosphatase 91 Units/L (46-116) 10/11/18 04:22 Total Protein 5.5 g/dL (6.4-8.2) L 10/11/18 04:22 Albumin 2.2 g/dL (3.4-5.0) L 10/11/18 04:22 Globulin 3.3 g/dL (2.5-4.5) 10/11/18 04:22 Albumin/Globulin Ratio 0.7 Ratio (1.1-2.1) L 10/11/18 04:22 Specimen Type Clean catch urine 10/09/18 14:19 Urine Color Yellow (YELLOW) 10/09/18 14:19 Urine Appearance Clear (CLEAR) 10/09/18 14:19 Urine pH 7.0 (5.0 - 8.0) 10/09/18 14:19 Ur Specific [place] 1.010 (1.000-1.030) 10/09/18 14:19 Urine Protein Negative (NEGATIVE) 10/09/18 14:19 Urine Glucose (UA) Negative (NEGATIVE) 10/09/18 14:19 Urine Ketones Negative (NEGATIVE) 10/09/18 14:19 Urine Occult Blood Negative (NEGATIVE) 10/09/18 14:19 Urine Nitrite Negative (NEGATIVE) 10/09/18 14:19 Urine Bilirubin Negative (NEGATIVE) 10/09/18 14:19 Urine Urobilinogen Normal (NORMAL) 10/09/18 14:19 Ur Leukocyte Esterase Negative (NEGATIVE) 10/09/18 14:19 Vancomycin Trough 10.5 ug/mL (15-20) L 10/11/18 04:22 Salicylates < 2.8 mg/dL (2.8-20) L 10/09/18 13:11 Urine Opiates Screen Negative (NEG=<300) 10/09/18 14:19 Urine Methadone Screen Negative (NEG=<300) 10/09/18 14:19 Acetaminophen 2.9 ug/mL (10-30) L 10/09/18 13:11 Ur Barbiturates Screen Negative (NEG=<200) 10/09/18 14:19 Ur Phencyclidine Scrn Negative (NEG=<25) 10/09/18 14:19 Ur Amphetamines Screen Positive (NEG=<1000) 10/09/18 14:19 U Benzodiazepines Scrn Negative (NEG=<200) 10/09/18 14:19 Urine Cocaine Screen Positive (NEG=<300) 10/09/18 14:19 U Marijuana (THC) Screen Negative (NEG=<50) 10/09/18 14:19 Ethyl Alcohol mg/dL < 3 mg/dL (0-19.9) 10/09/18 13:11 Tissue Pathology To follow 10/09/18 20:50 - Plan (1) Abscess or cellulitis of scalp Status: Acute Plan: WOUND CARE, VANCOMYCIN IV, LEVAQUIN IV, CONTINUE TO MONITOR (2) Cellulitis, face Status: Acute Plan: WOUND CARE, VANCOMYCIN IV, LEVAQUIN IV, CONTINUE TO MONITOR (3) Substance abuse Status: Acute
[2018-10-11] MEDS ORDERED: HYDROGEN PEROXIDE 3% ONE (10:41)
[2018-10-11] MEDS: MOBIC TAB 15 MG PO SCH (11:02)
[2018-10-11] MEDS: LOTENSIN TAB 10 MG PO SCH (11:02)
[2018-10-11] MEDS: K-DUR TAB 20 MEQ PO SCH (11:02)
[2018-10-11] MEDS: NORVASC TAB 10 MG PO SCH (11:03)
[2018-10-11] MEDS: PROTONIX TAB 40 MG PO SCH (11:04)
[2018-10-11] MEDS: VITAMIN C PO SCH (11:16)
[2018-10-11] MEDS: TAB-A-VITE PO SCH (11:16)
[2018-10-11] MEDS: M.S. CONTIN 15 MG (EXTENDED RELEASE) PO PRN (11:17)
[2018-10-11] MEDS ORDERED: ZOLOFT PO ONE (20:12)
[2018-10-11] MEDS: FLOMAX PO SCH (20:34)
[2018-10-11] MEDS: KLONOPIN TAB 1 MG PO SCH (20:34)
[2018-10-11] MEDS: ZOLOFT PO SCH (20:35)
[2018-10-11] MEDS: TRICOR TAB 48 MG PO SCH (20:35)
[2018-10-11] MEDS: ZyrTEC TAB 10 MG PO SCH (20:35)
[2018-10-11] MEDS: SNACK - Diabetic Appropriate PO SCH (20:36)
[2018-10-11] MEDS: NEURONTIN CAP 100 MG PO SCH (21:55)
[2018-10-12] MEDS: NS 1000 ML 1,000 ML IV SCH ×4 (00:41→19:29)
[2018-10-12] MEDS: MOTRIN TAB 600 MG PO PRN ×2 (03:42→19:29)
[2018-10-12 06:14] LABS: BASOPHILS % (AUTO) 0.5 % (0.2-1.0); EOSINOPHILS # (AUTO) 0.5 x10^3/uL (0.0-0.2); EOSINOPHILS % (AUTO) 5.2 % (0.9-2.9); HEMATOCRIT 38.8 % (42.0-54.0); HEMOGLOBIN 12.9 g/dL (13.5-18.0); LYMPHOCYTES % (AUTO) 33.4 % (21.0-51.0); MEAN CORPUSCULAR HEMOGLOBIN 29.5 pg (27.0-34.0); MEAN CORPUSCULAR HGB CONC 33.3 g/dL (33.0-35.0); MEAN CORPUSCULAR VOLUME 88.8 fL (80.0-100.0); MEAN PLATELET VOLUME 7.1 fL (7.4-11.0); MONOCYTES # (AUTO) 0.6 x10^3/uL (0.3-0.8); MONOCYTES % (AUTO) 7.1 % (0.0-13.0); NEUTROPHILS # (AUTO) 4.8 x10^3/uL (2.2-4.8); NEUTROPHILS % (AUTO) 53.8 % (42.0-75.0); PLATELET COUNT 426 X10^3/uL (150.0-450.0); RED BLOOD COUNT 4.37 X10^6/uL (4.7-6.0); RED CELL DISTRIBUTION WIDTH 15.5 % (11.6-16.5); WHITE BLOOD COUNT 8.8 X10^3/uL (3.6-10.0)
[2018-10-12] MEDS: HumuLIN R SUBCUT PRN (06:25)
[2018-10-12] MEDS: NEURONTIN CAP 100 MG PO SCH ×3 (06:25→21:11)
[2018-10-12] MEDS: VANCOMYCIN HCL 1 GM VIAL 1 G in D5W 250 ML IV 250 ML IV SCH ×3 (06:26→21:11)
[2018-10-12 06:59] LABS: ALANINE AMINOTRANSFERASE 23 Units/L (12-78); ALBUMIN 2.3 g/dL (3.4-5.0); ALKALINE PHOSPHATASE 93 Units/L (46-116); ASPARTATE AMINO TRANSFERASE 13 Units/L (15-37); BLOOD UREA NITROGEN 7 mg/dL (7-18); CALCIUM 8.2 mg/dL (8.5-10.1); CHLORIDE 105 mmol/L (98-107); COR CA(FOR HYPOALB) 9.6 mg/dL (8.5-10.1); COR NA(FOR HYPERGLY) 144 mmol/L (136-145); CREATININE 0.49 mg/dL (0.70-1.30); SODIUM 142 mmol/L (136-145); TOTAL PROTEIN 5.8 g/dL (6.4-8.2); eGFR NON BLACK RACES > 60 (>60)
[2018-10-12] MEDS: MOBIC TAB 15 MG PO SCH (09:10)
[2018-10-12] MEDS: LEVAQUIN PREMIX IV 750 MG 750 MG/150 ML BAG IV SCH (09:10)
[2018-10-12] MEDS: NORVASC TAB 10 MG PO SCH (09:10)
[2018-10-12] MEDS: K-DUR TAB 20 MEQ PO SCH (09:10)
[2018-10-12] MEDS: TAB-A-VITE PO SCH (09:10)
[2018-10-12] MEDS: PROTONIX TAB 40 MG PO SCH (09:10)
[2018-10-12] MEDS: LOTENSIN TAB 10 MG PO SCH (09:10)
[2018-10-12] MEDS: VITAMIN C PO SCH (09:10)
[2018-10-12] MEDS: M.S. CONTIN 15 MG (EXTENDED RELEASE) PO PRN ×2 (11:55→23:42)
--- NOTE | 2018-10-12 12:17 | RAD ---
History: Chest pain and dyspnea. Exam: Single portable view of the chest. Comparison: 10/04/2016. Findings: The trachea is midline. The cardiomediastinal silhouette is within normal limits. There is no evidence for CHF or pulmonary edema. There is no pneumothorax or mediastinal shift. The lungs are clear without lobar consolidation, effusion, or pneumothorax. The chest is hyperinflated with an increased AP dimension of the chest, diaphragmatic flattening, and central interstitial changes which would be compatible with changes of obstructive airways disease. No acute cardiopulmonary changes are observed. No acute bony abnormalities are seen. Impression: Stable chest with persistent findings of bronchitis/COPD. No lobar infiltrate seen. Reported By:
[2018-10-12] MEDS: NICOTINE PATCH TD SCH (13:31)
[2018-10-12] MEDS: DILAUDID INJ IVP PRN (15:49)
[2018-10-12] MEDS: SNACK - Diabetic Appropriate PO SCH (19:58)
[2018-10-12] MEDS ORDERED: ZOLOFT PO ONE (20:29)
[2018-10-12] MEDS: KLONOPIN TAB 1 MG PO SCH (21:11)
[2018-10-12] MEDS: FLOMAX PO SCH (21:12)
[2018-10-12] MEDS: ZOLOFT PO SCH (21:12)
[2018-10-12] MEDS: TRICOR TAB 48 MG PO SCH (21:13)
[2018-10-12] MEDS: ZyrTEC TAB 10 MG PO SCH (21:13)
[2018-10-13] MEDS: NS 1000 ML 1,000 ML IV SCH ×4 (02:10→23:15)
[2018-10-13] MEDS: NEURONTIN CAP 100 MG PO SCH ×3 (05:53→21:28)
[2018-10-13] MEDS: VANCOMYCIN HCL 1 GM VIAL 1 G in D5W 250 ML IV 250 ML IV SCH ×3 (05:53→21:28)
[2018-10-13 06:05] LABS: BASOPHILS # (AUTO) 0.1 X10^3/uL (0.0-0.1); BASOPHILS % (AUTO) 0.9 % (0.2-1.0); EOSINOPHILS # (AUTO) 0.3 x10^3/uL (0.0-0.2); EOSINOPHILS % (AUTO) 4.1 % (0.9-2.9); HEMATOCRIT 37.6 % (42.0-54.0); HEMOGLOBIN 12.4 g/dL (13.5-18.0); LYMPHOCYTES # (AUTO) 2.8 X10^3/uL (1.3-2.9); LYMPHOCYTES % (AUTO) 35.4 % (21.0-51.0); MEAN CORPUSCULAR HEMOGLOBIN 29.3 pg (27.0-34.0); MEAN CORPUSCULAR HGB CONC 32.9 g/dL (33.0-35.0); MEAN CORPUSCULAR VOLUME 89.1 fL (80.0-100.0); MONOCYTES # (AUTO) 0.6 x10^3/uL (0.3-0.8); MONOCYTES % (AUTO) 7.4 % (0.0-13.0); NEUTROPHILS # (AUTO) 4.1 x10^3/uL (2.2-4.8); NEUTROPHILS % (AUTO) 52.2 % (42.0-75.0); PLATELET COUNT 423 X10^3/uL (150.0-450.0); RED BLOOD COUNT 4.22 X10^6/uL (4.7-6.0); RED CELL DISTRIBUTION WIDTH 15.1 % (11.6-16.5)
[2018-10-13 06:31] LABS: ALANINE AMINOTRANSFERASE 26 Units/L (12-78); ALBUMIN 2.4 g/dL (3.4-5.0); ALKALINE PHOSPHATASE 92 Units/L (46-116); ASPARTATE AMINO TRANSFERASE 18 Units/L (15-37); BLOOD UREA NITROGEN 9 mg/dL (7-18); CALCIUM 8.3 mg/dL (8.5-10.1); CHLORIDE 106 mmol/L (98-107); COR CA(FOR HYPOALB) 9.6 mg/dL (8.5-10.1); COR NA(FOR HYPERGLY) 143 mmol/L (136-145); CREATININE 0.46 mg/dL (0.70-1.30); SODIUM 142 mmol/L (136-145); TOTAL PROTEIN 5.7 g/dL (6.4-8.2); eGFR NON BLACK RACES > 60 (>60)
[2018-10-13] MEDS: K-DUR TAB 20 MEQ PO SCH (09:15)
[2018-10-13] MEDS: LEVAQUIN PREMIX IV 750 MG 750 MG/150 ML BAG IV SCH (09:16)
[2018-10-13] MEDS: NORVASC TAB 10 MG PO SCH (09:16)
[2018-10-13] MEDS: TAB-A-VITE PO SCH (09:17)
[2018-10-13] MEDS: PROTONIX TAB 40 MG PO SCH (09:17)
[2018-10-13] MEDS: LOTENSIN TAB 10 MG PO SCH (09:18)
[2018-10-13] MEDS: MOBIC TAB 15 MG PO SCH (09:18)
[2018-10-13] MEDS: NICOTINE PATCH TD SCH (09:28)
[2018-10-13] MEDS: VITAMIN C PO SCH (09:28)
[2018-10-13] MEDS: XANAX PO SCH ×3 (13:47→21:29)
[2018-10-13] MEDS: M.S. CONTIN 15 MG (EXTENDED RELEASE) PO PRN (13:47)
[2018-10-13 13:58] LABS: CREATININE 0.57 mg/dL (0.70-1.30); VANCOMYCIN,TROUGH 12.1 ug/mL (15-20)
[2018-10-13] MEDS: DILAUDID INJ IVP PRN (17:16)
[2018-10-13] MEDS: VISTARIL PO PRN (19:47)
[2018-10-13] MEDS ORDERED: ZOLOFT PO ONE (20:46)
[2018-10-13] MEDS: FLOMAX PO SCH (21:28)
[2018-10-13] MEDS: ZyrTEC TAB 10 MG PO SCH (21:29)
[2018-10-13] MEDS: KLONOPIN TAB 1 MG PO SCH (21:29)
[2018-10-13] MEDS: ZOLOFT PO SCH (21:29)
[2018-10-13] MEDS: SNACK - Diabetic Appropriate PO SCH (21:30)
[2018-10-13] MEDS: TRICOR TAB 48 MG PO SCH (22:00)
[2018-10-14] MEDS: DILAUDID INJ IVP PRN (01:47)
[2018-10-14] MEDS: NS 1000 ML 1,000 ML IV SCH ×5 (03:37→18:01)
[2018-10-14] MEDS: M.S. CONTIN 15 MG (EXTENDED RELEASE) PO PRN (04:11)
[2018-10-14 05:45] LABS: BASOPHILS # (AUTO) 0.1 X10^3/uL (0.0-0.1); BASOPHILS % (AUTO) 0.8 % (0.2-1.0); EOSINOPHILS # (AUTO) 0.3 x10^3/uL (0.0-0.2); EOSINOPHILS % (AUTO) 3.3 % (0.9-2.9); HEMOGLOBIN 12.8 g/dL (13.5-18.0); LYMPHOCYTES # (AUTO) 2.7 X10^3/uL (1.3-2.9); LYMPHOCYTES % (AUTO) 28.2 % (21.0-51.0); MEAN CORPUSCULAR HEMOGLOBIN 30.1 pg (27.0-34.0); MEAN CORPUSCULAR HGB CONC 33.8 g/dL (33.0-35.0); MEAN CORPUSCULAR VOLUME 89.1 fL (80.0-100.0); MEAN PLATELET VOLUME 6.7 fL (7.4-11.0); MONOCYTES # (AUTO) 0.6 x10^3/uL (0.3-0.8); MONOCYTES % (AUTO) 6.2 % (0.0-13.0); NEUTROPHILS # (AUTO) 5.9 x10^3/uL (2.2-4.8); NEUTROPHILS % (AUTO) 61.5 % (42.0-75.0); PLATELET COUNT 450 X10^3/uL (150.0-450.0); RED BLOOD COUNT 4.26 X10^6/uL (4.7-6.0); RED CELL DISTRIBUTION WIDTH 15.3 % (11.6-16.5); WHITE BLOOD COUNT 9.5 X10^3/uL (3.6-10.0)
[2018-10-14] MEDS: HumuLIN R SUBCUT PRN (06:00)
[2018-10-14 06:04] LABS: ALANINE AMINOTRANSFERASE 26 Units/L (12-78); ALBUMIN 2.5 g/dL (3.4-5.0); ALKALINE PHOSPHATASE 91 Units/L (46-116); ASPARTATE AMINO TRANSFERASE 19 Units/L (15-37); BLOOD UREA NITROGEN 12 mg/dL (7-18); CALCIUM 8.1 mg/dL (8.5-10.1); CHLORIDE 103 mmol/L (98-107); COR CA(FOR HYPOALB) 9.3 mg/dL (8.5-10.1); COR NA(FOR HYPERGLY) 143 mmol/L (136-145); CREATININE 0.64 mg/dL (0.70-1.30); SODIUM 140 mmol/L (136-145); TOTAL PROTEIN 5.7 g/dL (6.4-8.2); eGFR NON BLACK RACES > 60 (>60)
[2018-10-14] MEDS: VANCOMYCIN HCL 1 GM VIAL 1 G in D5W 250 ML IV 250 ML IV SCH ×3 (06:28→22:00)
[2018-10-14] MEDS: NEURONTIN CAP 100 MG PO SCH ×3 (06:28→22:00)
[2018-10-14 07:38] LABS: ERYTHROCYTE SEDIMENTATION RATE 18 MM/HOUR (0-15)
[2018-10-14] MEDS: LEVAQUIN PREMIX IV 750 MG 750 MG/150 ML BAG IV SCH (08:05)
[2018-10-14] MEDS: LOTENSIN TAB 10 MG PO SCH (08:05)
[2018-10-14] MEDS: NICOTINE PATCH TD SCH (08:05)
[2018-10-14] MEDS: K-DUR TAB 20 MEQ PO SCH (08:05)
[2018-10-14] MEDS: MOBIC TAB 15 MG PO SCH (08:05)
[2018-10-14] MEDS: PROTONIX TAB 40 MG PO SCH (08:06)
[2018-10-14] MEDS: NORVASC TAB 10 MG PO SCH (08:06)
[2018-10-14] MEDS: TAB-A-VITE PO SCH (08:07)
[2018-10-14] MEDS: VITAMIN C PO SCH (08:07)
[2018-10-14] MEDS: XANAX PO SCH ×5 (08:08→20:16)
[2018-10-14] MEDS: VISTARIL PO PRN (08:39)
[2018-10-14] MEDS: TORADOL 30 MG VIAL IVP PRN ×2 (16:07→23:40)
[2018-10-14] MEDS ORDERED: ZOLOFT PO ONE (20:06)
[2018-10-14] MEDS: ZOLOFT PO SCH (20:16)
[2018-10-14] MEDS: FLOMAX PO SCH (20:16)
[2018-10-14] MEDS: KLONOPIN TAB 1 MG PO SCH (20:16)
[2018-10-14] MEDS: ELAVIL PO SCH (20:16)
[2018-10-14] MEDS: ZyrTEC TAB 10 MG PO SCH (20:17)
[2018-10-14] MEDS ORDERED: MILK OF MAGNESIA PO PRN (20:46)
[2018-10-14] MEDS: TRICOR TAB 48 MG PO SCH (20:52)
[2018-10-14] MEDS: SNACK - Diabetic Appropriate PO SCH (20:52)
--- NOTE | 2018-10-14 21:41 | PCM.PROG ---
Progress Note - Progress Note for Day of Date of Exam: 10/12/18 - Subjective Subjective: WAS ADMITTED FOR SCALP ABSCESSES, CELLULITIS TO THE SCALP AND LEFT SIDE FACE, AND SUBSTANCE ABUSE. EXTENSIVELY DEBRIDED WOUNDS TO THE SCALP AND SIDE OF FACE ON ADMISSION. HE REPORTS THAT PATIENT WILL NEED A SKIN GRAFT IN THE FUTURE. TODAY, HE IS LYING IN BED WITH EYES CLOSED ON MORNING ROUNDS. HE AWAKENS AND RESPONDS TO VERBAL STIMULI. HE DENIES COMPLAINTS THIS MORNING. ON EXAMINATION, DRESSING TO HEAD IS DRY AND INTACT. HEART IS REGULAR IN RATE AND RHYTHM. BILATERAL LUNGS ARE NOTED WITH DIMINISHED LUNG SOUNDS THROUGHOUT. ABDOMEN IS ROUND, SOFT, AND NON-TENDER WITH NORMAL BOWEL SOUNDS NOTED IN ALL QUADRANTS. DRESSING NOTED TO TOP OF HEAD DRY AND INTACT. IS MONITORING WOUNDS. HIS VITALS THIS MORNING ARE 97.1-97-20-100%-160/84. LABS WERE OBTAINED. ABNORMAL LAB VALUES INCLUDE THE FOLLOWING: RBC 4.37, HGB 12.9, HCT 38.8, CREATININE 0.49, GLUCOSE 185, CALCIUM 8.2, TOTAL BILI 0.10, AST 13, TOTAL PROTEIN 5.8, ALBUMIN 2.3. WOUND AND BLOOD CULTURES ARE PENDING. HE IS CURRENTLY RECEIVING LEVAQUIN IV AND VANCOMYCIN IV. TODAY, WE WILL CONTINUE WITH WOUND CARE AND IV ANTIBIOTICS. OTHERWISE, WE WILL FOLLOW UP WITH AM LABS AND CONTINUE TO MONITOR. - Past Medical Family Social History Past Med/Fam/Surg Hx: No changes since H&P Allergies: Allergies SULFA DRUGS Allergy (Uncoded 10/09/18 12:30) - Review of Systems ROS: No change since H&P - Vital Signs and I&O's Vital Signs: Temperature 98.1 F Pulse Rate [Left Brachial] 84 Pulse Rate 101 Respiratory Rate 20 Blood Pressure [Right Arm] 119/67 Blood Pressure [Left Arm] 119/58 Blood Pressure 138/78 O2 Sat by Pulse Oximetry 94 Intake and Output: Intake & Output 10/12/18 10/13/18 10/14/18 10/15/18 11:59 11:59 11:59 11:59 Intake Total 4030 / 4030 4065 / 4065 2655 / 2655 1280 / 1280 Output Total 5350 / 5350 6875 / 6875 3950 / 3950 2100 / 2100 Balance -1320 / -1320 -2810 / -2810 -1295 / -1295 -820 / -820 - Physical Exam Oriented: Normal Eyes: Normal Ear: Normal Nose: Normal Throat: Normal Cardiovascular: Tachycardia. negative: S3, S4, Murmur : Normal Auscultation: Bowel Sounds: Normal Tenderness: Normal Skin: Tender, Wound (dressing intact .mild edema rt side of face ) Musculoskeletal: Normal Psychiatric: Normal Mood Description: Calm Affect: Normal Speech Pattern: Clear - Laboratory and Diagnostics Result Diagrams: 10/14/18 05:20 10/14/18 05:20 Labs: 10/09/18 16:00 Blood Blood Culture - Preliminary 10/09/18 13:11 Blood Blood Culture - Preliminary 10/09/18 15:12 Head Gram Stain - Final 10/09/18 15:12 Head Wound Culture - Final Methicillin Resis Staph Aureus 10/09/18 19:15 Scalp Gram Stain - Final 10/09/18 19:15 Scalp Wound Culture - Final Methicillin Resis Staph Aureus 10/09/18 19:10 Face Gram Stain - Final 10/09/18 19:10 Face Wound Culture - Final Methicillin Resis Staph Aureus Laboratory WBC 9.5 X10^3/uL (3.6-10.0) 10/14/18 05:20 RBC 4.26 X10^6/uL (4.7-6.0) L 10/14/18 05:20 Hgb 12.8 g/dL (13.5-18.0) L 10/14/18 05:20 Hct 38.0 % (42.0-54.0) L 10/14/18 05:20 MCV 89.1 fL (80.0-100.0) 10/14/18 05:20 MCH 30.1 pg (27.0-34.0) 10/14/18 05:20 MCHC 33.8 g/dL (33.0-35.0) 10/14/18 05:20 RDW 15.3 % (11.6-16.5) 10/14/18 05:20 Plt Count 450 X10^3/uL (150.0-450.0) 10/14/18 05:20 MPV 6.7 fL (7.4-11.0) L 10/14/18 05:20 Neut % (Auto) 61.5 % (42.0-75.0) 10/14/18 05:20 Lymph % (Auto) 28.2 % (21.0-51.0) 10/14/18 05:20 [place] % (Auto) 6.2 % (0.0-13.0) 10/14/18 05:20 Eos % (Auto) 3.3 % (0.9-2.9) H 10/14/18 05:20 Baso % (Auto) 0.8 % (0.2-1.0) 10/14/18 05:20 Neut # (Auto) 5.9 x10^3/uL (2.2-4.8) H 10/14/18 05:20 Lymph # (Auto) 2.7 X10^3/uL (1.3-2.9) 10/14/18 05:20 [place] # (Auto) 0.6 x10^3/uL (0.3-0.8) 10/14/18 05:20 Eos # (Auto) 0.3 x10^3/uL (0.0-0.2) H 10/14/18 05:20 Baso # (Auto) 0.1 X10^3/uL (0.0-0.1) 10/14/18 05:20 Absolute Nucleated RBC 0.1 /100WBC 10/14/18 05:20 ESR 18 MM/HOUR (0-15) H 10/14/18 05:20 Sodium 140 mmol/L (136-145) 10/14/18 05:20 Corrected Sodium 143 mmol/L (136-145) 10/14/18 05:20 Potassium 3.3 mmol/L (3.5-5.1) L 10/14/18 05:20 Chloride 103 mmol/L (98-107) 10/14/18 05:20 Carbon Dioxide 30.0 mmol/L (21-32) 10/14/18 05:20 BUN 12 mg/dL (7-18) 10/14/18 05:20 Creatinine 0.64 mg/dL (0.70-1.30) L 10/14/18 05:20 Est GFR (MDRD) Af Amer > 60 (>60) 10/14/18 05:20 Est GFR (MDRD) Non-Af > 60 (>60) 10/14/18 05:20 Glucose 222 mg/dL (65-99) H 10/14/18 05:20 POC Glucose (mg/dL) 112 mg/dL (65-99) H 10/14/18 19:29 Lactic Acid 0.5 mmol/L (0.4-2.0) 10/09/18 13:11 Calcium 8.1 mg/dL (8.5-10.1) L 10/14/18 05:20 Corrected Calcium 9.3 mg/dL (8.5-10.1) 10/14/18 05:20 Total Bilirubin 0.10 mg/dL (0.2-1.0) L 10/14/18 05:20 AST 19 Units/L (15-37) 10/14/18 05:20 ALT 26 Units/L (12-78) 10/14/18 05:20 Alkaline Phosphatase 91 Units/L (46-116) 10/14/18 05:20 C-Reactive Protein 7.30 mg/L (0-3.0) H 10/14/18 05:20 Total Protein 5.7 g/dL (6.4-8.2) L 10/14/18 05:20 Albumin 2.5 g/dL (3.4-5.0) L 10/14/18 05:20 Globulin 3.2 g/dL (2.5-4.5) 10/14/18 05:20 Albumin/Globulin Ratio 0.8 Ratio (1.1-2.1) L 10/14/18 05:20 Specimen Type Clean catch urine 10/09/18 14:19 Urine Color Yellow (YELLOW) 10/09/18 14:19 Urine Appearance Clear (CLEAR) 10/09/18 14:19 Urine pH 7.0 (5.0 - 8.0) 10/09/18 14:19 Ur Specific [place] 1.010 (1.000-1.030) 10/09/18 14:19 Urine Protein Negative (NEGATIVE) 10/09/18 14:19 Urine Glucose (UA) Negative (NEGATIVE) 10/09/18 14:19 Urine Ketones Negative (NEGATIVE) 10/09/18 14:19 Urine Occult Blood Negative (NEGATIVE) 10/09/18 14:19 Urine Nitrite Negative (NEGATIVE) 10/09/18 14:19 Urine Bilirubin Negative (NEGATIVE) 10/09/18 14:19 Urine Urobilinogen Normal (NORMAL) 10/09/18 14:19 Ur Leukocyte Esterase Negative (NEGATIVE) 10/09/18 14:19 Vancomycin Trough 12.1 ug/mL (15-20) L 10/13/18 13:28 Random Vancomycin 11.5 ug/mL 10/11/18 21:40 Salicylates < 2.8 mg/dL (2.8-20) L 10/09/18 13:11 Urine Opiates Screen Negative (NEG=<300) 10/09/18 14:19 Urine Methadone Screen Negative (NEG=<300) 10/09/18 14:19 Acetaminophen 2.9 ug/mL (10-30) L 10/09/18 13:11 Ur Barbiturates Screen Negative (NEG=<200) 10/09/18 14:19 Ur Phencyclidine Scrn Negative (NEG=<25) 10/09/18 14:19 Ur Amphetamines Screen Positive (NEG=<1000) 10/09/18 14:19 U Benzodiazepines Scrn Negative (NEG=<200) 10/09/18 14:19 Urine Cocaine Screen Positive (NEG=<300) 10/09/18 14:19 U Marijuana (THC) Screen Negative (NEG=<50) 10/09/18 14:19 Ethyl Alcohol mg/dL < 3 mg/dL (0-19.9) 10/09/18 13:11 Tissue Pathology To follow 10/09/18 20:50 - Plan (1) Abscess or cellulitis of scalp Status: Acute Plan: WOUND CARE, VANCOMYCIN IV, LEVAQUIN IV, CONTINUE TO MONITOR (2) Cellulitis, face Status: Acute Plan: WOUND CARE, VANCOMYCIN IV, LEVAQUIN IV, CONTINUE TO MONITOR (3) Substance abuse Status: Acute
[2018-10-14 21:43] LABS: CREATININE 0.71 mg/dL (0.70-1.30); VANCOMYCIN,TROUGH 11.6 ug/mL (15-20)
[2018-10-15] MEDS: NS 1000 ML 1,000 ML IV SCH ×5 (02:29→21:12)
[2018-10-15] MEDS: VANCOMYCIN HCL 1 GM VIAL 1 G in D5W 250 ML IV 250 ML IV SCH ×3 (05:07→21:04)
[2018-10-15] MEDS: NEURONTIN CAP 100 MG PO SCH ×3 (05:07→21:06)
[2018-10-15 05:20] LABS: BASOPHILS # (AUTO) 0.1 X10^3/uL (0.0-0.1); BASOPHILS % (AUTO) 0.8 % (0.2-1.0); EOSINOPHILS # (AUTO) 0.4 x10^3/uL (0.0-0.2); EOSINOPHILS % (AUTO) 3.7 % (0.9-2.9); HEMATOCRIT 40.1 % (42.0-54.0); HEMOGLOBIN 13.3 g/dL (13.5-18.0); LYMPHOCYTES # (AUTO) 3.1 X10^3/uL (1.3-2.9); LYMPHOCYTES % (AUTO) 29.9 % (21.0-51.0); MEAN CORPUSCULAR HEMOGLOBIN 29.5 pg (27.0-34.0); MEAN CORPUSCULAR HGB CONC 33.2 g/dL (33.0-35.0); MEAN CORPUSCULAR VOLUME 88.8 fL (80.0-100.0); MEAN PLATELET VOLUME 6.6 fL (7.4-11.0); MONOCYTES # (AUTO) 0.6 x10^3/uL (0.3-0.8); MONOCYTES % (AUTO) 5.3 % (0.0-13.0); NEUTROPHILS # (AUTO) 6.2 x10^3/uL (2.2-4.8); NEUTROPHILS % (AUTO) 60.3 % (42.0-75.0); PLATELET COUNT 461 X10^3/uL (150.0-450.0); RED BLOOD COUNT 4.52 X10^6/uL (4.7-6.0); RED CELL DISTRIBUTION WIDTH 15.5 % (11.6-16.5); WHITE BLOOD COUNT 10.3 X10^3/uL (3.6-10.0)
[2018-10-15 05:52] LABS: ALANINE AMINOTRANSFERASE 29 Units/L (12-78); ALBUMIN 2.8 g/dL (3.4-5.0); ALKALINE PHOSPHATASE 87 Units/L (46-116); ASPARTATE AMINO TRANSFERASE 16 Units/L (15-37); BLOOD UREA NITROGEN 10 mg/dL (7-18); CALCIUM 8.7 mg/dL (8.5-10.1); CARBON DIOXIDE 30.2 mmol/L (21-32); CHLORIDE 103 mmol/L (98-107); COR CA(FOR HYPOALB) 9.7 mg/dL (8.5-10.1); COR NA(FOR HYPERGLY) 141 mmol/L (136-145); CREATININE 0.56 mg/dL (0.70-1.30); SODIUM 141 mmol/L (136-145); TOTAL PROTEIN 6.4 g/dL (6.4-8.2); eGFR NON BLACK RACES > 60 (>60)
[2018-10-15] MEDS: K-DUR TAB 20 MEQ PO SCH (08:38)
[2018-10-15] MEDS: LEVAQUIN PREMIX IV 750 MG 750 MG/150 ML BAG IV SCH (08:38)
[2018-10-15] MEDS: LOTENSIN TAB 10 MG PO SCH (08:38)
[2018-10-15] MEDS: MOBIC TAB 15 MG PO SCH (08:39)
[2018-10-15] MEDS: PROTONIX TAB 40 MG PO SCH (08:42)
[2018-10-15] MEDS: NICOTINE PATCH TD SCH (08:42)
[2018-10-15] MEDS: TAB-A-VITE PO SCH (08:42)
[2018-10-15] MEDS: NORVASC TAB 10 MG PO SCH (08:42)
[2018-10-15] MEDS: VITAMIN C PO SCH (08:42)
[2018-10-15] MEDS: XANAX PO SCH ×4 (08:43→21:05)
[2018-10-15] MEDS: M.S. CONTIN 15 MG (EXTENDED RELEASE) PO PRN ×2 (08:43→21:04)
[2018-10-15] MEDS ORDERED: COLACE CAP 100 MG PO PRN (09:00)
[2018-10-15] MEDS: DILAUDID INJ IVP PRN (13:04)
[2018-10-15] MEDS: TORADOL 30 MG VIAL IVP PRN (16:52)
[2018-10-15] MEDS ORDERED: ZOLOFT PO ONE (20:02)
[2018-10-15] MEDS: ZyrTEC TAB 10 MG PO SCH (21:04)
[2018-10-15] MEDS: ELAVIL PO SCH (21:04)
[2018-10-15] MEDS: FLOMAX PO SCH (21:04)
[2018-10-15] MEDS: KLONOPIN TAB 1 MG PO SCH (21:05)
[2018-10-15] MEDS: ZOLOFT PO SCH (21:05)
[2018-10-15] MEDS: TRICOR TAB 48 MG PO SCH (21:06)
[2018-10-15] MEDS: SNACK - Diabetic Appropriate PO SCH (21:06)
[2018-10-16] MEDS: DILAUDID INJ IVP PRN ×3 (00:35→17:22)
[2018-10-16] MEDS: NS 1000 ML 1,000 ML IV SCH ×3 (02:17→21:52)
[2018-10-16 05:02] LABS: BASOPHILS % (AUTO) 0.4 % (0.2-1.0); EOSINOPHILS # (AUTO) 0.4 x10^3/uL (0.0-0.2); EOSINOPHILS % (AUTO) 3.7 % (0.9-2.9); HEMATOCRIT 38.7 % (42.0-54.0); LYMPHOCYTES # (AUTO) 3.3 X10^3/uL (1.3-2.9); LYMPHOCYTES % (AUTO) 29.2 % (21.0-51.0); MEAN CORPUSCULAR HEMOGLOBIN 29.6 pg (27.0-34.0); MEAN CORPUSCULAR HGB CONC 33.6 g/dL (33.0-35.0); MEAN PLATELET VOLUME 6.9 fL (7.4-11.0); MONOCYTES # (AUTO) 0.6 x10^3/uL (0.3-0.8); MONOCYTES % (AUTO) 5.3 % (0.0-13.0); NEUTROPHILS % (AUTO) 61.4 % (42.0-75.0); PLATELET COUNT 457 X10^3/uL (150.0-450.0); RED CELL DISTRIBUTION WIDTH 15.3 % (11.6-16.5); WHITE BLOOD COUNT 11.4 X10^3/uL (3.6-10.0)
[2018-10-16 05:03] LABS: VANCOMYCIN,TROUGH 13.6 ug/mL (15-20)
[2018-10-16 05:07] LABS: ALANINE AMINOTRANSFERASE 26 Units/L (12-78); ALBUMIN 2.8 g/dL (3.4-5.0); ALKALINE PHOSPHATASE 96 Units/L (46-116); ASPARTATE AMINO TRANSFERASE 12 Units/L (15-37); BLOOD UREA NITROGEN 13 mg/dL (7-18); CALCIUM 8.3 mg/dL (8.5-10.1); CARBON DIOXIDE 28.7 mmol/L (21-32); CHLORIDE 104 mmol/L (98-107); COR CA(FOR HYPOALB) 9.3 mg/dL (8.5-10.1); COR NA(FOR HYPERGLY) 143 mmol/L (136-145); CREATININE 0.62 mg/dL (0.70-1.30); SODIUM 142 mmol/L (136-145); TOTAL PROTEIN 6.2 g/dL (6.4-8.2); eGFR NON BLACK RACES > 60 (>60)
[2018-10-16] MEDS: NEURONTIN CAP 100 MG PO SCH ×3 (05:44→21:57)
[2018-10-16] MEDS: VANCOMYCIN HCL 1 GM VIAL 1 G in D5W 250 ML IV 250 ML IV SCH ×3 (05:45→21:52)
[2018-10-16] MEDS: LEVAQUIN PREMIX IV 750 MG 750 MG/150 ML BAG IV SCH (09:22)
[2018-10-16] MEDS: M.S. CONTIN 15 MG (EXTENDED RELEASE) PO PRN (09:22)
[2018-10-16] MEDS: NICOTINE PATCH TD SCH (09:22)
[2018-10-16] MEDS: K-DUR TAB 20 MEQ PO SCH (09:23)
[2018-10-16] MEDS: TAB-A-VITE PO SCH (09:23)
[2018-10-16] MEDS: NORVASC TAB 10 MG PO SCH (09:23)
[2018-10-16] MEDS: XANAX PO SCH ×4 (09:23→21:56)
[2018-10-16] MEDS: LOTENSIN TAB 10 MG PO SCH (09:23)
[2018-10-16] MEDS: VITAMIN C PO SCH (09:23)
[2018-10-16] MEDS: MOBIC TAB 15 MG PO SCH (09:23)
[2018-10-16] MEDS: PROTONIX TAB 40 MG PO SCH (09:23)
[2018-10-16] MEDS: TORADOL 30 MG VIAL IVP PRN (14:18)
[2018-10-16] MEDS ORDERED: ZOLOFT PO ONE (19:54)
--- NOTE | 2018-10-16 20:11 | PCM.PROG ---
Progress Note - Progress Note for Day of Date of Exam: 10/13/18 - Subjective Subjective: IS BEING TREATED FOR SCALP ABSCESSES, CELLULITIS TO THE SCALP AND LEFT SIDE FACE, AND SUBSTANCE ABUSE. EXTENSIVELY DEBRIDED WOUNDS TO THE SCALP AND SIDE OF FACE ON ADMISSION. TODAY, HE IS ALERT AND ORIENTED, LYING IN BED ON MORNING ROUNDS. HE AWAKENS AND RESPONDS TO VERBAL STIMULI. HE COMPLAINS OF ANXIETY THIS MORNING. ON EXAMINATION, DRESSING TO HEAD IS DRY AND INTACT. HEART IS REGULAR IN RATE AND RHYTHM. BILATERAL LUNGS ARE NOTED WITH DIMINISHED LUNG SOUNDS THROUGHOUT. ABDOMEN IS ROUND, SOFT, AND NON- TENDER WITH NORMAL BOWEL SOUNDS NOTED IN ALL QUADRANTS. DRESSING NOTED TO TOP OF HEAD DRY AND INTACT. IS MONITORING WOUNDS. HIS VITALS THIS MORNING ARE 97.6-89-18-96%-119/58. HE HIS HEMODYNAMICALLY STABLE TODAY. WOUND CULTURES REPORTED GROWTH OF MRSA. HE IS CURRENTLY RECEIVING LEVAQUIN IV AND VANCOMYCIN IV. TODAY, WE WILL CONTINUE WITH WOUND CARE AND IV ANTIBIOTICS. WE WILL START XANAX 0.5MG PO QID. OTHERWISE, WE WILL FOLLOW UP WITH AM LABS AND CONTINUE TO MONITOR. - Past Medical Family Social History Past Med/Fam/Surg Hx: No changes since H&P Allergies: Allergies SULFA DRUGS Allergy (Uncoded 10/09/18 12:30) - Review of Systems ROS: No change since H&P - Vital Signs and I&O's Vital Signs: Temperature 97.6 F Pulse Rate [Left Brachial] 101 Pulse Rate 101 Respiratory Rate 20 Blood Pressure [Right Arm] 124/62 Blood Pressure [Left Arm] 141/70 Blood Pressure 138/78 O2 Sat by Pulse Oximetry 93 Intake and Output: Intake & Output 10/14/18 10/15/18 10/16/18 10/17/18 11:59 11:59 11:59 11:59 Intake Total 2655 / 2655 3500 / 3500 4140 / 4140 1060 / 1060 Output Total 3950 / 3950 3775 / 3775 1700 / 1700 Balance -1295 / -1295 -275 / -275 2440 / 2440 1060 / 1060 - Physical Exam Oriented: Normal Eyes: Normal Ear: Normal Nose: Normal Throat: Normal Respiratory: Diminished Cardiovascular: Tachycardia. negative: S3, S4, Murmur : Normal Auscultation: Bowel Sounds: Normal Palpation: Normal Tenderness: Normal Skin: Tender, Wound (dressing intact .mild edema rt side of face ) Musculoskeletal: Normal Psychiatric: Normal Mood Description: Calm Affect: Normal Speech Pattern: Clear, Appropriate - Laboratory and Diagnostics Result Diagrams: 10/16/18 04:03 10/16/18 04:03 Labs: 10/09/18 16:00 Blood Blood Culture - Final 10/09/18 13:11 Blood Blood Culture - Final 10/09/18 15:12 Head Gram Stain - Final 10/09/18 15:12 Head Wound Culture - Final Methicillin Resis Staph Aureus 10/09/18 19:15 Scalp Gram Stain - Final 10/09/18 19:15 Scalp Wound Culture - Final Methicillin Resis Staph Aureus 10/09/18 19:10 Face Gram Stain - Final 10/09/18 19:10 Face Wound Culture - Final Methicillin Resis Staph Aureus Laboratory WBC 11.4 X10^3/uL (3.6-10.0) H 10/16/18 04:03 RBC 4.40 X10^6/uL (4.7-6.0) L 10/16/18 04:03 Hgb 13.0 g/dL (13.5-18.0) L 10/16/18 04:03 Hct 38.7 % (42.0-54.0) L 10/16/18 04:03 MCV 88.0 fL (80.0-100.0) 10/16/18 04:03 MCH 29.6 pg (27.0-34.0) 10/16/18 04:03 MCHC 33.6 g/dL (33.0-35.0) 10/16/18 04:03 RDW 15.3 % (11.6-16.5) 10/16/18 04:03 Plt Count 457 X10^3/uL (150.0-450.0) H 10/16/18 04:03 MPV 6.9 fL (7.4-11.0) L 10/16/18 04:03 Neut % (Auto) 61.4 % (42.0-75.0) 10/16/18 04:03 Lymph % (Auto) 29.2 % (21.0-51.0) 10/16/18 04:03 [place] % (Auto) 5.3 % (0.0-13.0) 10/16/18 04:03 Eos % (Auto) 3.7 % (0.9-2.9) H 10/16/18 04:03 Baso % (Auto) 0.4 % (0.2-1.0) 10/16/18 04:03 Neut # (Auto) 7.0 x10^3/uL (2.2-4.8) H 10/16/18 04:03 Lymph # (Auto) 3.3 X10^3/uL (1.3-2.9) H 10/16/18 04:03 [place] # (Auto) 0.6 x10^3/uL (0.3-0.8) 10/16/18 04:03 Eos # (Auto) 0.4 x10^3/uL (0.0-0.2) H 10/16/18 04:03 Baso # (Auto) 0.0 X10^3/uL (0.0-0.1) 10/16/18 04:03 Absolute Nucleated RBC 0.0 /100WBC 10/16/18 04:03 ESR 18 MM/HOUR (0-15) H 10/14/18 05:20 Sodium 142 mmol/L (136-145) 10/16/18 04:03 Corrected Sodium 143 mmol/L (136-145) 10/16/18 04:03 Potassium 3.5 mmol/L (3.5-5.1) 10/16/18 04:03 Chloride 104 mmol/L (98-107) 10/16/18 04:03 Carbon Dioxide 28.7 mmol/L (21-32) 10/16/18 04:03 BUN 13 mg/dL (7-18) 10/16/18 04:03 Creatinine 0.62 mg/dL (0.70-1.30) L 10/16/18 04:03 Est GFR (MDRD) Af Amer > 60 (>60) 10/16/18 04:03 Est GFR (MDRD) Non-Af > 60 (>60) 10/16/18 04:03 Glucose 154 mg/dL (65-99) H 10/16/18 04:03 POC Glucose (mg/dL) 164 mg/dL (65-99) H 10/16/18 16:58 Lactic Acid 0.5 mmol/L (0.4-2.0) 10/09/18 13:11 Calcium 8.3 mg/dL (8.5-10.1) L 10/16/18 04:03 Corrected Calcium 9.3 mg/dL (8.5-10.1) 10/16/18 04:03 Total Bilirubin 0.10 mg/dL (0.2-1.0) L 10/16/18 04:03 AST 12 Units/L (15-37) L 10/16/18 04:03 ALT 26 Units/L (12-78) 10/16/18 04:03 Alkaline Phosphatase 96 Units/L (46-116) 10/16/18 04:03 C-Reactive Protein 7.30 mg/L (0-3.0) H 10/14/18 05:20 Total Protein 6.2 g/dL (6.4-8.2) L 10/16/18 04:03 Albumin 2.8 g/dL (3.4-5.0) L 10/16/18 04:03 Globulin 3.4 g/dL (2.5-4.5) 10/16/18 04:03 Albumin/Globulin Ratio 0.8 Ratio (1.1-2.1) L 10/16/18 04:03 Specimen Type Clean catch urine 10/09/18 14:19 Urine Color Yellow (YELLOW) 10/09/18 14:19 Urine Appearance Clear (CLEAR) 10/09/18 14:19 Urine pH 7.0 (5.0 - 8.0) 10/09/18 14:19 Ur Specific [place] 1.010 (1.000-1.030) 10/09/18 14:19 Urine Protein Negative (NEGATIVE) 10/09/18 14:19 Urine Glucose (UA) Negative (NEGATIVE) 10/09/18 14:19 Urine Ketones Negative (NEGATIVE) 10/09/18 14:19 Urine Occult Blood Negative (NEGATIVE) 10/09/18 14:19 Urine Nitrite Negative (NEGATIVE) 10/09/18 14:19 Urine Bilirubin Negative (NEGATIVE) 10/09/18 14:19 Urine Urobilinogen Normal (NORMAL) 10/09/18 14:19 Ur Leukocyte Esterase Negative (NEGATIVE) 10/09/18 14:19 Vancomycin Trough 13.6 ug/mL (15-20) L 10/16/18 04:03 Random Vancomycin 11.5 ug/mL 10/11/18 21:40 Salicylates < 2.8 mg/dL (2.8-20) L 10/09/18 13:11 Urine Opiates Screen Negative (NEG=<300) 10/09/18 14:19 Urine Methadone Screen Negative (NEG=<300) 10/09/18 14:19 Acetaminophen 2.9 ug/mL (10-30) L 10/09/18 13:11 Ur Barbiturates Screen Negative (NEG=<200) 10/09/18 14:19 Ur Phencyclidine Scrn Negative (NEG=<25) 10/09/18 14:19 Ur Amphetamines Screen Positive (NEG=<1000) 10/09/18 14:19 U Benzodiazepines Scrn Negative (NEG=<200) 10/09/18 14:19 Urine Cocaine Screen Positive (NEG=<300) 10/09/18 14:19 U Marijuana (THC) Screen Negative (NEG=<50) 10/09/18 14:19 Ethyl Alcohol mg/dL < 3 mg/dL (0-19.9) 10/09/18 13:11 Tissue Pathology To follow 10/09/18 20:50 - Plan (1) Abscess or cellulitis of scalp Status: Acute Plan: WOUND CARE, VANCOMYCIN IV, LEVAQUIN IV, CONTINUE TO MONITOR (2) Cellulitis, face Status: Acute Plan: WOUND CARE, VANCOMYCIN IV, LEVAQUIN IV, CONTINUE TO MONITOR (3) Substance abuse Status: Acute
--- NOTE | 2018-10-16 20:15 | PCM.PROG ---
Progress Note - Progress Note for Day of Date of Exam: 10/14/18 - Subjective Subjective: IS BEING TREATED FOR SCALP ABSCESSES, CELLULITIS TO THE SCALP AND LEFT SIDE FACE, AND SUBSTANCE ABUSE. TODAY, HE IS ALERT AND ORIENTED, LYING IN BED ON MORNING ROUNDS. HE AWAKENS AND RESPONDS TO VERBAL STIMULI. HE DENIES COMPLAINTS. ON EXAMINATION, DRESSING TO HEAD IS DRY AND INTACT. HEART IS REGULAR IN RATE AND RHYTHM. BILATERAL LUNGS ARE NOTED WITH DIMINISHED LUNG SOUNDS THROUGHOUT. ABDOMEN IS ROUND, SOFT, AND NON-TENDER WITH NORMAL BOWEL SOUNDS NOTED IN ALL QUADRANTS. DRESSING NOTED TO TOP OF HEAD DRY AND INTACT. IS MONITORING WOUNDS. HIS VITALS THIS MORNING ARE 98.1-91-20-93%-145/71. HE HIS HEMODYNAMICALLY STABLE TODAY. WOUND CULTURES REPORTED GROWTH OF MRSA. HE IS CURRENTLY RECEIVING LEVAQUIN IV AND VANCOMYCIN IV. TODAY, WE WILL CONTINUE WITH WOUND CARE AND IV ANTIBIOTICS. OTHERWISE, WE WILL FOLLOW UP WITH AM LABS AND CONTINUE TO MONITOR. - Past Medical Family Social History Past Med/Fam/Surg Hx: No changes since H&P Allergies: Allergies SULFA DRUGS Allergy (Uncoded 10/09/18 12:30) - Review of Systems ROS: No change since H&P - Vital Signs and I&O's Vital Signs: Temperature 97.6 F Pulse Rate [Left Brachial] 101 Pulse Rate 101 Respiratory Rate 20 Blood Pressure [Right Arm] 124/62 Blood Pressure [Left Arm] 141/70 Blood Pressure 138/78 O2 Sat by Pulse Oximetry 93 Intake and Output: Intake & Output 10/14/18 10/15/18 10/16/18 10/17/18 11:59 11:59 11:59 11:59 Intake Total 2655 / 2655 3500 / 3500 4140 / 4140 1060 / 1060 Output Total 3950 / 3950 3775 / 3775 1700 / 1700 Balance -1295 / -1295 -275 / -275 2440 / 2440 1060 / 1060 - Physical Exam Oriented: Normal Eyes: Normal Ear: Normal Nose: Normal Throat: Normal Respiratory: Diminished Cardiovascular: Tachycardia. negative: S3, S4, Murmur : Normal Auscultation: Bowel Sounds: Normal Tenderness: Normal Skin: Tender, Wound (dressing intact .mild edema rt side of face ) Musculoskeletal: Normal Psychiatric: Normal Mood Description: Calm Affect: Normal Speech Pattern: Clear, Appropriate - Laboratory and Diagnostics Result Diagrams: 10/16/18 04:03 10/16/18 04:03 Labs: 10/09/18 16:00 Blood Blood Culture - Final 10/09/18 13:11 Blood Blood Culture - Final 10/09/18 15:12 Head Gram Stain - Final 10/09/18 15:12 Head Wound Culture - Final Methicillin Resis Staph Aureus 10/09/18 19:15 Scalp Gram Stain - Final 10/09/18 19:15 Scalp Wound Culture - Final Methicillin Resis Staph Aureus 10/09/18 19:10 Face Gram Stain - Final 10/09/18 19:10 Face Wound Culture - Final Methicillin Resis Staph Aureus Laboratory WBC 11.4 X10^3/uL (3.6-10.0) H 10/16/18 04:03 RBC 4.40 X10^6/uL (4.7-6.0) L 10/16/18 04:03 Hgb 13.0 g/dL (13.5-18.0) L 10/16/18 04:03 Hct 38.7 % (42.0-54.0) L 10/16/18 04:03 MCV 88.0 fL (80.0-100.0) 10/16/18 04:03 MCH 29.6 pg (27.0-34.0) 10/16/18 04:03 MCHC 33.6 g/dL (33.0-35.0) 10/16/18 04:03 RDW 15.3 % (11.6-16.5) 10/16/18 04:03 Plt Count 457 X10^3/uL (150.0-450.0) H 10/16/18 04:03 MPV 6.9 fL (7.4-11.0) L 10/16/18 04:03 Neut % (Auto) 61.4 % (42.0-75.0) 10/16/18 04:03 Lymph % (Auto) 29.2 % (21.0-51.0) 10/16/18 04:03 [place] % (Auto) 5.3 % (0.0-13.0) 10/16/18 04:03 Eos % (Auto) 3.7 % (0.9-2.9) H 10/16/18 04:03 Baso % (Auto) 0.4 % (0.2-1.0) 10/16/18 04:03 Neut # (Auto) 7.0 x10^3/uL (2.2-4.8) H 10/16/18 04:03 Lymph # (Auto) 3.3 X10^3/uL (1.3-2.9) H 10/16/18 04:03 [place] # (Auto) 0.6 x10^3/uL (0.3-0.8) 10/16/18 04:03 Eos # (Auto) 0.4 x10^3/uL (0.0-0.2) H 10/16/18 04:03 Baso # (Auto) 0.0 X10^3/uL (0.0-0.1) 10/16/18 04:03 Absolute Nucleated RBC 0.0 /100WBC 10/16/18 04:03 ESR 18 MM/HOUR (0-15) H 10/14/18 05:20 Sodium 142 mmol/L (136-145) 10/16/18 04:03 Corrected Sodium 143 mmol/L (136-145) 10/16/18 04:03 Potassium 3.5 mmol/L (3.5-5.1) 10/16/18 04:03 Chloride 104 mmol/L (98-107) 10/16/18 04:03 Carbon Dioxide 28.7 mmol/L (21-32) 10/16/18 04:03 BUN 13 mg/dL (7-18) 10/16/18 04:03 Creatinine 0.62 mg/dL (0.70-1.30) L 10/16/18 04:03 Est GFR (MDRD) Af Amer > 60 (>60) 10/16/18 04:03 Est GFR (MDRD) Non-Af > 60 (>60) 10/16/18 04:03 Glucose 154 mg/dL (65-99) H 10/16/18 04:03 POC Glucose (mg/dL) 164 mg/dL (65-99) H 10/16/18 16:58 Lactic Acid 0.5 mmol/L (0.4-2.0) 10/09/18 13:11 Calcium 8.3 mg/dL (8.5-10.1) L 10/16/18 04:03 Corrected Calcium 9.3 mg/dL (8.5-10.1) 10/16/18 04:03 Total Bilirubin 0.10 mg/dL (0.2-1.0) L 10/16/18 04:03 AST 12 Units/L (15-37) L 10/16/18 04:03 ALT 26 Units/L (12-78) 10/16/18 04:03 Alkaline Phosphatase 96 Units/L (46-116) 10/16/18 04:03 C-Reactive Protein 7.30 mg/L (0-3.0) H 10/14/18 05:20 Total Protein 6.2 g/dL (6.4-8.2) L 10/16/18 04:03 Albumin 2.8 g/dL (3.4-5.0) L 10/16/18 04:03 Globulin 3.4 g/dL (2.5-4.5) 10/16/18 04:03 Albumin/Globulin Ratio 0.8 Ratio (1.1-2.1) L 10/16/18 04:03 Specimen Type Clean catch urine 10/09/18 14:19 Urine Color Yellow (YELLOW) 10/09/18 14:19 Urine Appearance Clear (CLEAR) 10/09/18 14:19 Urine pH 7.0 (5.0 - 8.0) 10/09/18 14:19 Ur Specific [place] 1.010 (1.000-1.030) 10/09/18 14:19 Urine Protein Negative (NEGATIVE) 10/09/18 14:19 Urine Glucose (UA) Negative (NEGATIVE) 10/09/18 14:19 Urine Ketones Negative (NEGATIVE) 10/09/18 14:19 Urine Occult Blood Negative (NEGATIVE) 10/09/18 14:19 Urine Nitrite Negative (NEGATIVE) 10/09/18 14:19 Urine Bilirubin Negative (NEGATIVE) 10/09/18 14:19 Urine Urobilinogen Normal (NORMAL) 10/09/18 14:19 Ur Leukocyte Esterase Negative (NEGATIVE) 10/09/18 14:19 Vancomycin Trough 13.6 ug/mL (15-20) L 10/16/18 04:03 Random Vancomycin 11.5 ug/mL 10/11/18 21:40 Salicylates < 2.8 mg/dL (2.8-20) L 10/09/18 13:11 Urine Opiates Screen Negative (NEG=<300) 10/09/18 14:19 Urine Methadone Screen Negative (NEG=<300) 10/09/18 14:19 Acetaminophen 2.9 ug/mL (10-30) L 10/09/18 13:11 Ur Barbiturates Screen Negative (NEG=<200) 10/09/18 14:19 Ur Phencyclidine Scrn Negative (NEG=<25) 10/09/18 14:19 Ur Amphetamines Screen Positive (NEG=<1000) 10/09/18 14:19 U Benzodiazepines Scrn Negative (NEG=<200) 10/09/18 14:19 Urine Cocaine Screen Positive (NEG=<300) 10/09/18 14:19 U Marijuana (THC) Screen Negative (NEG=<50) 10/09/18 14:19 Ethyl Alcohol mg/dL < 3 mg/dL (0-19.9) 10/09/18 13:11 Tissue Pathology To follow 10/09/18 20:50 - Plan (1) Abscess or cellulitis of scalp Status: Acute Plan: WOUND CARE, VANCOMYCIN IV, LEVAQUIN IV, CONTINUE TO MONITOR (2) Cellulitis, face Status: Acute Plan: WOUND CARE, VANCOMYCIN IV, LEVAQUIN IV, CONTINUE TO MONITOR (3) Substance abuse Status: Acute
[2018-10-16] MEDS: SNACK - Diabetic Appropriate PO SCH (20:32)
[2018-10-16] MEDS: ZOLOFT PO SCH (21:56)
[2018-10-16] MEDS: KLONOPIN TAB 1 MG PO SCH (21:56)
[2018-10-16] MEDS: ELAVIL PO SCH (21:56)
[2018-10-16] MEDS: ZyrTEC TAB 10 MG PO SCH (21:57)
[2018-10-16] MEDS: TRICOR TAB 48 MG PO SCH (21:57)
[2018-10-16] MEDS: FLOMAX PO SCH (21:57)
[2018-10-16] MEDS: MOTRIN TAB 600 MG PO PRN (22:03)
[2018-10-17 05:24] LABS: BASOPHILS # (AUTO) 0.1 X10^3/uL (0.0-0.1); BASOPHILS % (AUTO) 0.8 % (0.2-1.0); EOSINOPHILS # (AUTO) 0.3 x10^3/uL (0.0-0.2); EOSINOPHILS % (AUTO) 3.7 % (0.9-2.9); HEMATOCRIT 35.8 % (42.0-54.0); HEMOGLOBIN 11.7 g/dL (13.5-18.0); LYMPHOCYTES % (AUTO) 33.9 % (21.0-51.0); MEAN CORPUSCULAR HEMOGLOBIN 29.4 pg (27.0-34.0); MEAN CORPUSCULAR HGB CONC 32.7 g/dL (33.0-35.0); MEAN CORPUSCULAR VOLUME 89.7 fL (80.0-100.0); MEAN PLATELET VOLUME 6.9 fL (7.4-11.0); MONOCYTES # (AUTO) 0.6 x10^3/uL (0.3-0.8); MONOCYTES % (AUTO) 6.6 % (0.0-13.0); NEUTROPHILS # (AUTO) 4.9 x10^3/uL (2.2-4.8); PLATELET COUNT 418 X10^3/uL (150.0-450.0); RED BLOOD COUNT 3.98 X10^6/uL (4.7-6.0); RED CELL DISTRIBUTION WIDTH 15.6 % (11.6-16.5)
[2018-10-17 05:38] LABS: ALANINE AMINOTRANSFERASE 43 Units/L (12-78); ALBUMIN 2.4 g/dL (3.4-5.0); ALKALINE PHOSPHATASE 86 Units/L (46-116); ASPARTATE AMINO TRANSFERASE 23 Units/L (15-37); BLOOD UREA NITROGEN 12 mg/dL (7-18); CALCIUM 8.2 mg/dL (8.5-10.1); CARBON DIOXIDE 31.6 mmol/L (21-32); CHLORIDE 107 mmol/L (98-107); COR CA(FOR HYPOALB) 9.5 mg/dL (8.5-10.1); COR NA(FOR HYPERGLY) 144 mmol/L (136-145); CREATININE 0.53 mg/dL (0.70-1.30); SODIUM 143 mmol/L (136-145); TOTAL PROTEIN 5.4 g/dL (6.4-8.2); eGFR NON BLACK RACES > 60 (>60)
[2018-10-17] MEDS: NS 1000 ML 1,000 ML IV SCH ×5 (05:40→21:01)
[2018-10-17] MEDS: NEURONTIN CAP 100 MG PO SCH ×3 (05:40→21:00)
[2018-10-17] MEDS: HumuLIN R SUBCUT PRN (05:56)
[2018-10-17] MEDS: VANCOMYCIN HCL 1 GM VIAL 1 G in D5W 250 ML IV 250 ML IV SCH ×4 (05:57→21:03)
[2018-10-17] MEDS: DILAUDID INJ IVP PRN ×3 (06:22→22:28)
[2018-10-17] MEDS: M.S. CONTIN 15 MG (EXTENDED RELEASE) PO PRN (08:17)
[2018-10-17] MEDS: LEVAQUIN PREMIX IV 750 MG 750 MG/150 ML BAG IV SCH (08:17)
[2018-10-17] MEDS: NICOTINE PATCH TD SCH (08:17)
[2018-10-17] MEDS: K-DUR TAB 20 MEQ PO SCH (08:19)
[2018-10-17] MEDS: TAB-A-VITE PO SCH (08:19)
[2018-10-17] MEDS: LOTENSIN TAB 10 MG PO SCH (08:19)
[2018-10-17] MEDS: VITAMIN C PO SCH (08:19)
[2018-10-17] MEDS: PROTONIX TAB 40 MG PO SCH (08:19)
[2018-10-17] MEDS: MOBIC TAB 15 MG PO SCH (08:19)
[2018-10-17] MEDS: XANAX PO SCH ×4 (08:19→21:00)
[2018-10-17] MEDS: NORVASC TAB 10 MG PO SCH (08:19)
--- NOTE | 2018-10-17 13:01 | PCM.PROG ---
Progress Note - Progress Note for Day of Date of Exam: 10/15/18 - Subjective Subjective: IS BEING TREATED FOR SCALP ABSCESSES, CELLULITIS TO THE SCALP AND LEFT SIDE FACE, AND SUBSTANCE ABUSE. TODAY, HE IS ALERT AND ORIENTED, LYING IN BED ON MORNING ROUNDS. HE AWAKENS AND RESPONDS TO VERBAL STIMULI. HE DENIES COMPLAINTS. ON EXAMINATION, DRESSING TO HEAD IS DRY AND INTACT. HEART IS REGULAR IN RATE AND RHYTHM. BILATERAL LUNGS ARE NOTED WITH DIMINISHED LUNG SOUNDS THROUGHOUT. ABDOMEN IS ROUND, SOFT, AND NON-TENDER WITH NORMAL BOWEL SOUNDS NOTED IN ALL QUADRANTS. DRESSING NOTED TO TOP OF HEAD DRY AND INTACT. IS MONITORING WOUNDS. HIS VITALS THIS MORNING ARE 98.2-78-18-93%-126/60. ABNORMAL LAB VALUES INCLUDE THE FOLLOWING: WBC 10.3, RBC 4.52, HGB 13.3, HCT 40.1, CREATININE 0.56, GLUCOSE 119, TOTAL BILI 0.10, ALBUMIN 2.8. WOUND CULTURES REPORTED GROWTH OF MRSA. HE IS CURRENTLY RECEIVING LEVAQUIN IV AND VANCOMYCIN IV. TODAY, WE WILL CONTINUE WITH WOUND CARE AND IV ANTIBIOTICS. OTHERWISE, WE WILL FOLLOW UP WITH AM LABS AND CONTINUE TO MONITOR. - Past Medical Family Social History Past Med/Fam/Surg Hx: No changes since H&P Allergies: Allergies SULFA DRUGS Allergy (Uncoded 10/09/18 12:30) - Review of Systems ROS: No change since H&P - Vital Signs and I&O's Vital Signs: Temperature 98.3 F Pulse Rate [Left Brachial] 86 Pulse Rate 101 Respiratory Rate 18 Blood Pressure [Right Arm] 113/64 Blood Pressure [Left Arm] 124/68 Blood Pressure 138/78 O2 Sat by Pulse Oximetry 93 Intake and Output: Intake & Output 10/15/18 10/16/18 10/17/18 10/18/18 11:59 11:59 11:59 11:59 Intake Total 3500 / 3500 4140 / 4140 4183 / 4183 Output Total 3775 / 3775 1700 / 1700 1500 / 1500 Balance -275 / -275 2440 / 2440 2683 / 2683 - Physical Exam Oriented: Normal Eyes: Normal Ear: Normal Nose: Normal Throat: Normal Respiratory: Diminished Cardiovascular: Tachycardia. negative: S3, S4, Murmur : Normal Auscultation: Bowel Sounds: Normal Tenderness: Normal Skin: Tender, Wound (dressing intact .mild edema rt side of face ) Musculoskeletal: Normal Psychiatric: Normal Mood Description: Calm Affect: Normal Speech Pattern: Clear, Appropriate - Laboratory and Diagnostics Result Diagrams: 10/17/18 04:30 10/17/18 04:30 Labs: 10/09/18 16:00 Blood Blood Culture - Final 10/09/18 13:11 Blood Blood Culture - Final 10/09/18 15:12 Head Gram Stain - Final 10/09/18 15:12 Head Wound Culture - Final Methicillin Resis Staph Aureus 10/09/18 19:15 Scalp Gram Stain - Final 10/09/18 19:15 Scalp Wound Culture - Final Methicillin Resis Staph Aureus 10/09/18 19:10 Face Gram Stain - Final 10/09/18 19:10 Face Wound Culture - Final Methicillin Resis Staph Aureus Laboratory WBC 9.0 X10^3/uL (3.6-10.0) 10/17/18 04:30 RBC 3.98 X10^6/uL (4.7-6.0) L 10/17/18 04:30 Hgb 11.7 g/dL (13.5-18.0) L 10/17/18 04:30 Hct 35.8 % (42.0-54.0) L 10/17/18 04:30 MCV 89.7 fL (80.0-100.0) 10/17/18 04:30 MCH 29.4 pg (27.0-34.0) 10/17/18 04:30 MCHC 32.7 g/dL (33.0-35.0) L 10/17/18 04:30 RDW 15.6 % (11.6-16.5) 10/17/18 04:30 Plt Count 418 X10^3/uL (150.0-450.0) 10/17/18 04:30 MPV 6.9 fL (7.4-11.0) L 10/17/18 04:30 Neut % (Auto) 55.0 % (42.0-75.0) 10/17/18 04:30 Lymph % (Auto) 33.9 % (21.0-51.0) 10/17/18 04:30 [place] % (Auto) 6.6 % (0.0-13.0) 10/17/18 04:30 Eos % (Auto) 3.7 % (0.9-2.9) H 10/17/18 04:30 Baso % (Auto) 0.8 % (0.2-1.0) 10/17/18 04:30 Neut # (Auto) 4.9 x10^3/uL (2.2-4.8) H 10/17/18 04:30 Lymph # (Auto) 3.0 X10^3/uL (1.3-2.9) H 10/17/18 04:30 [place] # (Auto) 0.6 x10^3/uL (0.3-0.8) 10/17/18 04:30 Eos # (Auto) 0.3 x10^3/uL (0.0-0.2) H 10/17/18 04:30 Baso # (Auto) 0.1 X10^3/uL (0.0-0.1) 10/17/18 04:30 Absolute Nucleated RBC 0.1 /100WBC 10/17/18 04:30 ESR 18 MM/HOUR (0-15) H 10/14/18 05:20 Sodium 143 mmol/L (136-145) 10/17/18 04:30 Corrected Sodium 144 mmol/L (136-145) 10/17/18 04:30 Potassium 4.0 mmol/L (3.5-5.1) 10/17/18 04:30 Chloride 107 mmol/L (98-107) 10/17/18 04:30 Carbon Dioxide 31.6 mmol/L (21-32) 10/17/18 04:30 BUN 12 mg/dL (7-18) 10/17/18 04:30 Creatinine 0.53 mg/dL (0.70-1.30) L 10/17/18 04:30 Est GFR (MDRD) Af Amer > 60 (>60) 10/17/18 04:30 Est GFR (MDRD) Non-Af > 60 (>60) 10/17/18 04:30 Glucose 124 mg/dL (65-99) H 10/17/18 04:30 POC Glucose (mg/dL) 127 mg/dL (65-99) H 10/17/18 11:10 Lactic Acid 0.5 mmol/L (0.4-2.0) 10/09/18 13:11 Calcium 8.2 mg/dL (8.5-10.1) L 10/17/18 04:30 Corrected Calcium 9.5 mg/dL (8.5-10.1) 10/17/18 04:30 Total Bilirubin 0.10 mg/dL (0.2-1.0) L 10/17/18 04:30 AST 23 Units/L (15-37) 10/17/18 04:30 ALT 43 Units/L (12-78) 10/17/18 04:30 Alkaline Phosphatase 86 Units/L (46-116) 10/17/18 04:30 C-Reactive Protein 7.30 mg/L (0-3.0) H 10/14/18 05:20 Total Protein 5.4 g/dL (6.4-8.2) L 10/17/18 04:30 Albumin 2.4 g/dL (3.4-5.0) L 10/17/18 04:30 Globulin 3.0 g/dL (2.5-4.5) 10/17/18 04:30 Albumin/Globulin Ratio 0.8 Ratio (1.1-2.1) L 10/17/18 04:30 Specimen Type Clean catch urine 10/09/18 14:19 Urine Color Yellow (YELLOW) 10/09/18 14:19 Urine Appearance Clear (CLEAR) 10/09/18 14:19 Urine pH 7.0 (5.0 - 8.0) 10/09/18 14:19 Ur Specific [place] 1.010 (1.000-1.030) 10/09/18 14:19 Urine Protein Negative (NEGATIVE) 10/09/18 14:19 Urine Glucose (UA) Negative (NEGATIVE) 10/09/18 14:19 Urine Ketones Negative (NEGATIVE) 10/09/18 14:19 Urine Occult Blood Negative (NEGATIVE) 10/09/18 14:19 Urine Nitrite Negative (NEGATIVE) 10/09/18 14:19 Urine Bilirubin Negative (NEGATIVE) 10/09/18 14:19 Urine Urobilinogen Normal (NORMAL) 10/09/18 14:19 Ur Leukocyte Esterase Negative (NEGATIVE) 10/09/18 14:19 Vancomycin Trough 13.6 ug/mL (15-20) L 10/16/18 04:03 Random Vancomycin 11.5 ug/mL 10/11/18 21:40 Salicylates < 2.8 mg/dL (2.8-20) L 10/09/18 13:11 Urine Opiates Screen Negative (NEG=<300) 10/09/18 14:19 Urine Methadone Screen Negative (NEG=<300) 10/09/18 14:19 Acetaminophen 2.9 ug/mL (10-30) L 10/09/18 13:11 Ur Barbiturates Screen Negative (NEG=<200) 10/09/18 14:19 Ur Phencyclidine Scrn Negative (NEG=<25) 10/09/18 14:19 Ur Amphetamines Screen Positive (NEG=<1000) 10/09/18 14:19 U Benzodiazepines Scrn Negative (NEG=<200) 10/09/18 14:19 Urine Cocaine Screen Positive (NEG=<300) 10/09/18 14:19 U Marijuana (THC) Screen Negative (NEG=<50) 10/09/18 14:19 Ethyl Alcohol mg/dL < 3 mg/dL (0-19.9) 10/09/18 13:11 Tissue Pathology To follow 10/09/18 20:50 - Plan (1) Abscess or cellulitis of scalp Status: Acute Plan: WOUND CARE, VANCOMYCIN IV, LEVAQUIN IV, CONTINUE TO MONITOR (2) Cellulitis, face Status: Acute Plan: WOUND CARE, VANCOMYCIN IV, LEVAQUIN IV, CONTINUE TO MONITOR (3) Substance abuse Status: Acute
[2018-10-17 13:23] LABS: CREATININE 0.6 mg/dL (0.70-1.30)
[2018-10-17] MEDS ORDERED: HYDROGEN PEROXIDE 3% ONE (16:38)
[2018-10-17] MEDS ORDERED: ZOLOFT PO ONE (19:48)
[2018-10-17] MEDS: ZyrTEC TAB 10 MG PO SCH (21:00)
[2018-10-17] MEDS: FLOMAX PO SCH (21:00)
[2018-10-17] MEDS: TRICOR TAB 48 MG PO SCH (21:00)
[2018-10-17] MEDS: KLONOPIN TAB 1 MG PO SCH (21:01)
[2018-10-17] MEDS: SNACK - Diabetic Appropriate PO SCH (21:01)
[2018-10-17] MEDS: ELAVIL PO SCH (21:01)
[2018-10-17] MEDS: ZOLOFT PO SCH (21:01)
--- NOTE | 2018-10-17 21:50 | PCM.PROG ---
Progress Note - Progress Note for Day of Date of Exam: 10/16/18 - Subjective Subjective: IS BEING TREATED FOR SCALP ABSCESSES, CELLULITIS TO THE SCALP AND LEFT SIDE FACE, AND SUBSTANCE ABUSE. TODAY, HE IS ALERT AND ORIENTED, LYING IN BED ON MORNING ROUNDS. HE AWAKENS AND RESPONDS TO VERBAL STIMULI. HE DENIES COMPLAINTS. ON EXAMINATION, DRESSING TO HEAD IS DRY AND INTACT. HEART IS REGULAR IN RATE AND RHYTHM. BILATERAL LUNGS ARE NOTED WITH DIMINISHED LUNG SOUNDS THROUGHOUT. ABDOMEN IS ROUND, SOFT, AND NON-TENDER WITH NORMAL BOWEL SOUNDS NOTED IN ALL QUADRANTS. DRESSING NOTED TO TOP OF HEAD DRY AND INTACT. IS MONITORING WOUNDS. HIS VITALS THIS MORNING ARE 97.6-92-20-93%-124/62. ABNORMAL LAB VALUES INCLUDE THE FOLLOWING: WBC 11.4, RBC 4.40, HGB 13.0, HCT 38.7, PLT COUNT 457, CREATININE 0.62, GLUCOSE 154, CALCIUM 8.3, TOTAL BILI 0.10, AST 12, TOTAL PROTEIN 6.2, ALBUMIN 2.8. WOUND CULTURES REPORTED GROWTH OF MRSA. HE IS CURRENTLY RECEIVING LEVAQUIN IV AND VANCOMYCIN IV. TODAY, WE WILL CONTINUE WITH WOUND CARE AND IV ANTIBIOTICS. OTHERWISE, WE WILL FOLLOW UP WITH AM LABS AND CONTINUE TO MONITOR. - Past Medical Family Social History Past Med/Fam/Surg Hx: No changes since H&P Allergies: Allergies SULFA DRUGS Allergy (Uncoded 10/09/18 12:30) - Review of Systems ROS: No change since H&P - Vital Signs and I&O's Vital Signs: Temperature 98.0 F Pulse Rate [Left Brachial] 95 Pulse Rate 101 Respiratory Rate 20 Blood Pressure [Right Arm] 169/78 Blood Pressure [Left Arm] 124/68 Blood Pressure 138/78 O2 Sat by Pulse Oximetry 94 Intake and Output: Intake & Output 10/15/18 10/16/18 10/17/18 10/18/18 11:59 11:59 11:59 11:59 Intake Total 3500 / 3500 4140 / 4140 4183 / 4183 440 / 440 Output Total 3775 / 3775 1700 / 1700 1500 / 1500 400 / 400 Balance -275 / -275 2440 / 2440 2683 / 2683 40 / 40 - Physical Exam Oriented: Normal Eyes: Normal Ear: Normal Nose: Normal Throat: Normal Respiratory: Diminished Cardiovascular: Tachycardia. negative: S3, S4, Murmur : Normal Auscultation: Bowel Sounds: Normal Tenderness: Normal Skin: Tender, Wound (dressing intact .mild edema rt side of face ) Musculoskeletal: Normal Psychiatric: Normal Mood Description: Calm Affect: Normal Speech Pattern: Clear, Appropriate - Laboratory and Diagnostics Result Diagrams: 10/17/18 04:30 10/17/18 12:55 Labs: 10/09/18 16:00 Blood Blood Culture - Final 10/09/18 13:11 Blood Blood Culture - Final 10/09/18 15:12 Head Gram Stain - Final 10/09/18 15:12 Head Wound Culture - Final Methicillin Resis Staph Aureus 10/09/18 19:15 Scalp Gram Stain - Final 10/09/18 19:15 Scalp Wound Culture - Final Methicillin Resis Staph Aureus 10/09/18 19:10 Face Gram Stain - Final 10/09/18 19:10 Face Wound Culture - Final Methicillin Resis Staph Aureus Laboratory WBC 9.0 X10^3/uL (3.6-10.0) 10/17/18 04:30 RBC 3.98 X10^6/uL (4.7-6.0) L 10/17/18 04:30 Hgb 11.7 g/dL (13.5-18.0) L 10/17/18 04:30 Hct 35.8 % (42.0-54.0) L 10/17/18 04:30 MCV 89.7 fL (80.0-100.0) 10/17/18 04:30 MCH 29.4 pg (27.0-34.0) 10/17/18 04:30 MCHC 32.7 g/dL (33.0-35.0) L 10/17/18 04:30 RDW 15.6 % (11.6-16.5) 10/17/18 04:30 Plt Count 418 X10^3/uL (150.0-450.0) 10/17/18 04:30 MPV 6.9 fL (7.4-11.0) L 10/17/18 04:30 Neut % (Auto) 55.0 % (42.0-75.0) 10/17/18 04:30 Lymph % (Auto) 33.9 % (21.0-51.0) 10/17/18 04:30 [place] % (Auto) 6.6 % (0.0-13.0) 10/17/18 04:30 Eos % (Auto) 3.7 % (0.9-2.9) H 10/17/18 04:30 Baso % (Auto) 0.8 % (0.2-1.0) 10/17/18 04:30 Neut # (Auto) 4.9 x10^3/uL (2.2-4.8) H 10/17/18 04:30 Lymph # (Auto) 3.0 X10^3/uL (1.3-2.9) H 10/17/18 04:30 [place] # (Auto) 0.6 x10^3/uL (0.3-0.8) 10/17/18 04:30 Eos # (Auto) 0.3 x10^3/uL (0.0-0.2) H 10/17/18 04:30 Baso # (Auto) 0.1 X10^3/uL (0.0-0.1) 10/17/18 04:30 Absolute Nucleated RBC 0.1 /100WBC 10/17/18 04:30 ESR 18 MM/HOUR (0-15) H 10/14/18 05:20 Sodium 143 mmol/L (136-145) 10/17/18 04:30 Corrected Sodium 144 mmol/L (136-145) 10/17/18 04:30 Potassium 4.0 mmol/L (3.5-5.1) 10/17/18 04:30 Chloride 107 mmol/L (98-107) 10/17/18 04:30 Carbon Dioxide 31.6 mmol/L (21-32) 10/17/18 04:30 BUN 12 mg/dL (7-18) 10/17/18 04:30 Creatinine 0.60 mg/dL (0.70-1.30) L 10/17/18 12:55 Est GFR (MDRD) Af Amer > 60 (>60) 10/17/18 04:30 Est GFR (MDRD) Non-Af > 60 (>60) 10/17/18 04:30 Glucose 124 mg/dL (65-99) H 10/17/18 04:30 POC Glucose (mg/dL) 149 mg/dL (65-99) H 10/17/18 20:07 Lactic Acid 0.5 mmol/L (0.4-2.0) 10/09/18 13:11 Calcium 8.2 mg/dL (8.5-10.1) L 10/17/18 04:30 Corrected Calcium 9.5 mg/dL (8.5-10.1) 10/17/18 04:30 Total Bilirubin 0.10 mg/dL (0.2-1.0) L 10/17/18 04:30 AST 23 Units/L (15-37) 10/17/18 04:30 ALT 43 Units/L (12-78) 10/17/18 04:30 Alkaline Phosphatase 86 Units/L (46-116) 10/17/18 04:30 C-Reactive Protein 7.30 mg/L (0-3.0) H 10/14/18 05:20 Total Protein 5.4 g/dL (6.4-8.2) L 10/17/18 04:30 Albumin 2.4 g/dL (3.4-5.0) L 10/17/18 04:30 Globulin 3.0 g/dL (2.5-4.5) 10/17/18 04:30 Albumin/Globulin Ratio 0.8 Ratio (1.1-2.1) L 10/17/18 04:30 Specimen Type Clean catch urine 10/09/18 14:19 Urine Color Yellow (YELLOW) 10/09/18 14:19 Urine Appearance Clear (CLEAR) 10/09/18 14:19 Urine pH 7.0 (5.0 - 8.0) 10/09/18 14:19 Ur Specific [place] 1.010 (1.000-1.030) 10/09/18 14:19 Urine Protein Negative (NEGATIVE) 10/09/18 14:19 Urine Glucose (UA) Negative (NEGATIVE) 10/09/18 14:19 Urine Ketones Negative (NEGATIVE) 10/09/18 14:19 Urine Occult Blood Negative (NEGATIVE) 10/09/18 14:19 Urine Nitrite Negative (NEGATIVE) 10/09/18 14:19 Urine Bilirubin Negative (NEGATIVE) 10/09/18 14:19 Urine Urobilinogen Normal (NORMAL) 10/09/18 14:19 Ur Leukocyte Esterase Negative (NEGATIVE) 10/09/18 14:19 Vancomycin Trough 10.0 ug/mL (15-20) L 10/17/18 12:55 Random Vancomycin 11.5 ug/mL 10/11/18 21:40 Salicylates < 2.8 mg/dL (2.8-20) L 10/09/18 13:11 Urine Opiates Screen Negative (NEG=<300) 10/09/18 14:19 Urine Methadone Screen Negative (NEG=<300) 10/09/18 14:19 Acetaminophen 2.9 ug/mL (10-30) L 10/09/18 13:11 Ur Barbiturates Screen Negative (NEG=<200) 10/09/18 14:19 Ur Phencyclidine Scrn Negative (NEG=<25) 10/09/18 14:19 Ur Amphetamines Screen Positive (NEG=<1000) 10/09/18 14:19 U Benzodiazepines Scrn Negative (NEG=<200) 10/09/18 14:19 Urine Cocaine Screen Positive (NEG=<300) 10/09/18 14:19 U Marijuana (THC) Screen Negative (NEG=<50) 10/09/18 14:19 Ethyl Alcohol mg/dL < 3 mg/dL (0-19.9) 10/09/18 13:11 Tissue Pathology To follow 10/09/18 20:50 - Plan (1) Abscess or cellulitis of scalp Status: Acute Plan: WOUND CARE, VANCOMYCIN IV, LEVAQUIN IV, CONTINUE TO MONITOR (2) Cellulitis, face Status: Acute Plan: WOUND CARE, VANCOMYCIN IV, LEVAQUIN IV, CONTINUE TO MONITOR (3) Substance abuse Status: Acute
[2018-10-18] MEDS: M.S. CONTIN 15 MG (EXTENDED RELEASE) PO PRN (01:46)
[2018-10-18 04:34] LABS: BASOPHILS # (AUTO) 0.1 X10^3/uL (0.0-0.1); BASOPHILS % (AUTO) 0.7 % (0.2-1.0); EOSINOPHILS # (AUTO) 0.3 x10^3/uL (0.0-0.2); EOSINOPHILS % (AUTO) 3.2 % (0.9-2.9); HEMATOCRIT 35.6 % (42.0-54.0); HEMOGLOBIN 11.7 g/dL (13.5-18.0); LYMPHOCYTES # (AUTO) 2.5 X10^3/uL (1.3-2.9); LYMPHOCYTES % (AUTO) 28.4 % (21.0-51.0); MEAN CORPUSCULAR HEMOGLOBIN 29.3 pg (27.0-34.0); MEAN PLATELET VOLUME 7.1 fL (7.4-11.0); MONOCYTES # (AUTO) 0.6 x10^3/uL (0.3-0.8); MONOCYTES % (AUTO) 6.9 % (0.0-13.0); NEUTROPHILS # (AUTO) 5.3 x10^3/uL (2.2-4.8); NEUTROPHILS % (AUTO) 60.8 % (42.0-75.0); PLATELET COUNT 414 X10^3/uL (150.0-450.0); RED CELL DISTRIBUTION WIDTH 15.4 % (11.6-16.5); WHITE BLOOD COUNT 8.7 X10^3/uL (3.6-10.0)
[2018-10-18 04:44] LABS: ALANINE AMINOTRANSFERASE 66 Units/L (12-78); ALBUMIN 2.6 g/dL (3.4-5.0); ALKALINE PHOSPHATASE 116 Units/L (46-116); ASPARTATE AMINO TRANSFERASE 28 Units/L (15-37); BLOOD UREA NITROGEN 9 mg/dL (7-18); CALCIUM 8.2 mg/dL (8.5-10.1); CARBON DIOXIDE 28.8 mmol/L (21-32); CHLORIDE 102 mmol/L (98-107); COR CA(FOR HYPOALB) 9.3 mg/dL (8.5-10.1); COR NA(FOR HYPERGLY) 140 mmol/L (136-145); CREATININE 0.49 mg/dL (0.70-1.30); SODIUM 137 mmol/L (136-145); TOTAL PROTEIN 5.7 g/dL (6.4-8.2); eGFR NON BLACK RACES > 60 (>60)
[2018-10-18] MEDS: NEURONTIN CAP 100 MG PO SCH ×3 (05:29→21:01)
[2018-10-18] MEDS: VANCOMYCIN HCL 1 GM VIAL 1 G in D5W 250 ML IV 250 ML IV SCH ×3 (05:29→22:27)
[2018-10-18] MEDS: DILAUDID INJ IVP PRN (10:01)
[2018-10-18] MEDS: XANAX PO SCH (10:02)
[2018-10-18] MEDS: NICOTINE PATCH TD SCH (10:02)
[2018-10-18] MEDS: TAB-A-VITE PO SCH (10:03)
[2018-10-18] MEDS: MOBIC TAB 15 MG PO SCH (10:03)
[2018-10-18] MEDS: LOTENSIN TAB 10 MG PO SCH (10:03)
[2018-10-18] MEDS: K-DUR TAB 20 MEQ PO SCH (10:03)
[2018-10-18] MEDS: PROTONIX TAB 40 MG PO SCH (10:04)
[2018-10-18] MEDS: NORVASC TAB 10 MG PO SCH (10:04)
[2018-10-18] MEDS: VITAMIN C PO SCH (10:04)
[2018-10-18] MEDS ORDERED: XANAX PO SCH ×2 (11:00→13:00)
[2018-10-18] MEDS: NS 1000 ML 1,000 ML IV SCH (11:03)
[2018-10-18] MEDS ORDERED: ZOLOFT PO ONE (20:41)
[2018-10-18] MEDS: TRICOR TAB 48 MG PO SCH (20:51)
[2018-10-18] MEDS: KLONOPIN TAB 1 MG PO SCH (20:52)
[2018-10-18] MEDS: ELAVIL PO SCH (20:52)
[2018-10-18] MEDS: FLOMAX PO SCH (20:52)
[2018-10-18] MEDS: ZOLOFT PO SCH (20:53)
[2018-10-18] MEDS: ZyrTEC TAB 10 MG PO SCH (20:54)
[2018-10-18] MEDS: ROXICODONE TAB 5 MG PO PRN (20:55)
[2018-10-18] MEDS: SNACK - Diabetic Appropriate PO SCH (21:00)
--- NOTE | 2018-10-18 22:08 | PCM.PROG ---
Progress Note - Progress Note for Day of Date of Exam: 10/17/18 - Subjective Subjective: IS BEING TREATED FOR SCALP ABSCESSES, CELLULITIS TO THE SCALP AND LEFT SIDE FACE, AND SUBSTANCE ABUSE. TODAY, HE IS LYING IN BED ON MORNING ROUNDS. HE IS NOTED WITH INCREASED DROWSINESS TODAY. HE DENIES COMPLAINTS THIS MORNING. ON EXAMINATION, DRESSING TO HEAD IS DRY AND INTACT. HEA RT IS REGULAR IN RATE AND RHYTHM. BILATERAL LUNGS ARE NOTED WITH DIMINISHED LUNG SOUNDS THROUGHOUT. ABDOMEN IS ROUND, SOFT, AND NON-TENDER WITH NORMAL BOWEL SOUNDS NOTED IN ALL QUADRANTS. IS MONITORING WOUNDS. HIS VITALS THIS MORNING ARE 98.0-83-18-94%-115/58. ABNORMAL LAB VALUES INCLUDE THE FOLLOWING: RBC 3.98, HGB 11.7, HCT 35.8, CREATININE 0.53, GLUCOSE 124, CALCIUM 8.2, TOTAL BILI 0.10, TOTAL PROTEIN 5.4, ALBUMIN 2.4. WOUND CULTURES REPORTED GROWTH OF MRSA. HE IS CURRENTLY RECEIVING LEVAQUIN IV AND VANCOMYCIN IV. TODAY, WE WILL CONTINUE WITH WOUND CARE AND IV ANTIBIOTICS. OTHERWISE, WE WILL FOLLOW UP WITH AM LABS AND CONTINUE TO MONITOR. - Past Medical Family Social History Past Med/Fam/Surg Hx: No changes since H&P Allergies: Allergies SULFA DRUGS Allergy (Uncoded 10/09/18 12:30) - Review of Systems ROS: No change since H&P - Vital Signs and I&O's Vital Signs: Temperature 98.0 F Pulse Rate [Left Brachial] 100 Pulse Rate 101 Respiratory Rate 18 Blood Pressure [Right Arm] 109/60 Blood Pressure [Left Arm] 118/67 Blood Pressure 138/78 O2 Sat by Pulse Oximetry 97 Intake and Output: Intake & Output 10/16/18 10/17/18 10/18/18 10/19/18 11:59 11:59 11:59 11:59 Intake Total 4140 / 4140 4183 / 4183 3290 / 3290 440 / 440 Output Total 1700 / 1700 1500 / 1500 1850 / 1850 1100 / 1100 Balance 2440 / 2440 2683 / 2683 1440 / 1440 -660 / -660 - Physical Exam Oriented: Normal Eyes: Normal Ear: Normal Nose: Normal Throat: Normal Respiratory: Diminished Cardiovascular: Tachycardia. negative: S3, S4, Murmur : Normal Auscultation: Bowel Sounds: Normal Palpation: Normal Tenderness: Normal Skin: Tender, Wound (dressing intact .mild edema rt side of face ) Musculoskeletal: Normal Psychiatric: Normal Mood Description: Calm Affect: Normal Speech Pattern: Clear, Appropriate - Laboratory and Diagnostics Result Diagrams: 10/18/18 04:09 10/18/18 04:09 Labs: 10/09/18 16:00 Blood Blood Culture - Final 10/09/18 13:11 Blood Blood Culture - Final 10/09/18 15:12 Head Gram Stain - Final 10/09/18 15:12 Head Wound Culture - Final Methicillin Resis Staph Aureus 10/09/18 19:15 Scalp Gram Stain - Final 10/09/18 19:15 Scalp Wound Culture - Final Methicillin Resis Staph Aureus 10/09/18 19:10 Face Gram Stain - Final 10/09/18 19:10 Face Wound Culture - Final Methicillin Resis Staph Aureus Laboratory WBC 8.7 X10^3/uL (3.6-10.0) 10/18/18 04:09 RBC 4.00 X10^6/uL (4.7-6.0) L 10/18/18 04:09 Hgb 11.7 g/dL (13.5-18.0) L 10/18/18 04:09 Hct 35.6 % (42.0-54.0) L 10/18/18 04:09 MCV 89.0 fL (80.0-100.0) 10/18/18 04:09 MCH 29.3 pg (27.0-34.0) 10/18/18 04:09 MCHC 33.0 g/dL (33.0-35.0) 10/18/18 04:09 RDW 15.4 % (11.6-16.5) 10/18/18 04:09 Plt Count 414 X10^3/uL (150.0-450.0) 10/18/18 04:09 MPV 7.1 fL (7.4-11.0) L 10/18/18 04:09 Neut % (Auto) 60.8 % (42.0-75.0) 10/18/18 04:09 Lymph % (Auto) 28.4 % (21.0-51.0) 10/18/18 04:09 [place] % (Auto) 6.9 % (0.0-13.0) 10/18/18 04:09 Eos % (Auto) 3.2 % (0.9-2.9) H 10/18/18 04:09 Baso % (Auto) 0.7 % (0.2-1.0) 10/18/18 04:09 Neut # (Auto) 5.3 x10^3/uL (2.2-4.8) H 10/18/18 04:09 Lymph # (Auto) 2.5 X10^3/uL (1.3-2.9) 10/18/18 04:09 [place] # (Auto) 0.6 x10^3/uL (0.3-0.8) 10/18/18 04:09 Eos # (Auto) 0.3 x10^3/uL (0.0-0.2) H 10/18/18 04:09 Baso # (Auto) 0.1 X10^3/uL (0.0-0.1) 10/18/18 04:09 Absolute Nucleated RBC 0.0 /100WBC 10/18/18 04:09 ESR 18 MM/HOUR (0-15) H 10/14/18 05:20 Sodium 137 mmol/L (136-145) 10/18/18 04:09 Corrected Sodium 140 mmol/L (136-145) 10/18/18 04:09 Potassium 3.5 mmol/L (3.5-5.1) 10/18/18 04:09 Chloride 102 mmol/L (98-107) 10/18/18 04:09 Carbon Dioxide 28.8 mmol/L (21-32) 10/18/18 04:09 BUN 9 mg/dL (7-18) 10/18/18 04:09 Creatinine 0.49 mg/dL (0.70-1.30) L 10/18/18 04:09 Est GFR (MDRD) Af Amer > 60 (>60) 10/18/18 04:09 Est GFR (MDRD) Non-Af > 60 (>60) 10/18/18 04:09 Glucose 218 mg/dL (65-99) H 10/18/18 04:09 POC Glucose (mg/dL) 167 mg/dL (65-99) H 10/18/18 20:58 Lactic Acid 0.5 mmol/L (0.4-2.0) 10/09/18 13:11 Calcium 8.2 mg/dL (8.5-10.1) L 10/18/18 04:09 Corrected Calcium 9.3 mg/dL (8.5-10.1) 10/18/18 04:09 Total Bilirubin 0.10 mg/dL (0.2-1.0) L 10/18/18 04:09 AST 28 Units/L (15-37) 10/18/18 04:09 ALT 66 Units/L (12-78) 10/18/18 04:09 Alkaline Phosphatase 116 Units/L (46-116) 10/18/18 04:09 C-Reactive Protein 7.30 mg/L (0-3.0) H 10/14/18 05:20 Total Protein 5.7 g/dL (6.4-8.2) L 10/18/18 04:09 Albumin 2.6 g/dL (3.4-5.0) L 10/18/18 04:09 Globulin 3.1 g/dL (2.5-4.5) 10/18/18 04:09 Albumin/Globulin Ratio 0.8 Ratio (1.1-2.1) L 10/18/18 04:09 Specimen Type Clean catch urine 10/09/18 14:19 Urine Color Yellow (YELLOW) 10/09/18 14:19 Urine Appearance Clear (CLEAR) 10/09/18 14:19 Urine pH 7.0 (5.0 - 8.0) 10/09/18 14:19 Ur Specific [place] 1.010 (1.000-1.030) 10/09/18 14:19 Urine Protein Negative (NEGATIVE) 10/09/18 14:19 Urine Glucose (UA) Negative (NEGATIVE) 10/09/18 14:19 Urine Ketones Negative (NEGATIVE) 10/09/18 14:19 Urine Occult Blood Negative (NEGATIVE) 10/09/18 14:19 Urine Nitrite Negative (NEGATIVE) 10/09/18 14:19 Urine Bilirubin Negative (NEGATIVE) 10/09/18 14:19 Urine Urobilinogen Normal (NORMAL) 10/09/18 14:19 Ur Leukocyte Esterase Negative (NEGATIVE) 10/09/18 14:19 Vancomycin Trough 10.0 ug/mL (15-20) L 10/17/18 12:55 Random Vancomycin 11.5 ug/mL 10/11/18 21:40 Salicylates < 2.8 mg/dL (2.8-20) L 10/09/18 13:11 Urine Opiates Screen Negative (NEG=<300) 10/09/18 14:19 Urine Methadone Screen Negative (NEG=<300) 10/09/18 14:19 Acetaminophen 2.9 ug/mL (10-30) L 10/09/18 13:11 Ur Barbiturates Screen Negative (NEG=<200) 10/09/18 14:19 Ur Phencyclidine Scrn Negative (NEG=<25) 10/09/18 14:19 Ur Amphetamines Screen Positive (NEG=<1000) 10/09/18 14:19 U Benzodiazepines Scrn Negative (NEG=<200) 10/09/18 14:19 Urine Cocaine Screen Positive (NEG=<300) 10/09/18 14:19 U Marijuana (THC) Screen Negative (NEG=<50) 10/09/18 14:19 Ethyl Alcohol mg/dL < 3 mg/dL (0-19.9) 10/09/18 13:11 Tissue Pathology To follow 10/09/18 20:50 - Plan (1) Abscess or cellulitis of scalp Status: Acute Plan: WOUND CARE, VANCOMYCIN IV, LEVAQUIN IV, CONTINUE TO MONITOR (2) Cellulitis, face Status: Acute Plan: WOUND CARE, VANCOMYCIN IV, LEVAQUIN IV, CONTINUE TO MONITOR (3) Substance abuse Status: Acute
[2018-10-18 22:13] LABS: CREATININE 0.61 mg/dL (0.70-1.30); VANCOMYCIN,TROUGH 12.6 ug/mL (15-20)
--- NOTE | 2018-10-18 23:13 | PCM.PROG ---
Progress Note - Progress Note for Day of Date of Exam: 10/18/18 - Subjective Subjective: IS BEING TREATED FOR SCALP ABSCESSES, CELLULITIS TO THE SCALP AND LEFT SIDE FACE, AND SUBSTANCE ABUSE. TODAY, HE IS LYING IN BED ON MORNING ROUNDS. HE CONTINUES WITH INCREASED DROWSINESS TODAY AND IS MORE DIFFICULT TO AROUSE. ON EXAMINATION, DRESSING TO HEAD IS DRY AND INTACT. HEART IS REGULAR IN RATE AND RHYTHM. BILATERAL LUNGS ARE NOTED WITH DIMINISHED LUNG SOUNDS THROUGHOUT. ABDOMEN IS ROUND, SOFT, AND NON-TENDER WITH NORMAL BOWEL SOUNDS NOTED IN ALL QUADRANTS. IS MONITORING WOUNDS. HIS VITALS THIS MORNING ARE 98.0-99-18-97%-122/57. ABNORMAL LAB VALUES INCLUDE THE FOLLOWING: RBC 4.00, HGB 11.7, HCT 35.6, CREATININE 0.49, GLUCOSE 218, CALCIUM 8.2, TOTAL BILI 0.10, TOTAL PROTEIN 5.7, ALBUMIN 2.6. WOUND CULTURES REPORTED GROWTH OF MRSA. HE IS CURRENTLY RECEIVING LEVAQUIN IV AND VANCOMYCIN IV. TODAY, WE WILL CONTINUE WITH WOUND CARE AND IV ANTIBIOTICS. WE WILL DECREASE XANAX TO 0.25MG PO QID, DECREASE KLONOPIN TO 2MG HS, AND DECREASE SEROQUEL TO 25MG PO BID. WE WILL DISCONTINUE DILAUDID AND START OXYCODONE 5MG PO QID PRN. OTHERWISE, WE WILL FOLLOW UP WITH AM LABS AND CONTINUE TO MONITOR. - Past Medical Family Social History Past Med/Fam/Surg Hx: No changes since H&P Allergies: Allergies SULFA DRUGS Allergy (Uncoded 10/09/18 12:30) - Review of Systems ROS: No change since H&P - Vital Signs and I&O's Vital Signs: Temperature 98.0 F Pulse Rate [Left Brachial] 100 Pulse Rate 101 Respiratory Rate 18 Blood Pressure [Right Arm] 109/60 Blood Pressure [Left Arm] 118/67 Blood Pressure 138/78 O2 Sat by Pulse Oximetry 97 Intake and Output: Intake & Output 10/16/18 10/17/18 10/18/18 10/19/18 11:59 11:59 11:59 11:59 Intake Total 4140 / 4140 4183 / 4183 3290 / 3290 1160 / 1160 Output Total 1700 / 1700 1500 / 1500 1850 / 1850 2500 / 2500 Balance 2440 / 2440 2683 / 2683 1440 / 1440 -1340 / -1340 - Physical Exam Oriented: Normal Eyes: Normal Ear: Normal Nose: Normal Throat: Normal Respiratory: Diminished Cardiovascular: Tachycardia. negative: S3, S4, Murmur : Normal Auscultation: Bowel Sounds: Normal Tenderness: Normal Skin: Tender, Wound (dressing intact .mild edema rt side of face ) Musculoskeletal: Normal Psychiatric: Normal Mood Description: Calm Affect: Normal Speech Pattern: Clear, Appropriate - Laboratory and Diagnostics Result Diagrams: 10/18/18 04:09 10/18/18 21:35 Labs: 10/09/18 16:00 Blood Blood Culture - Final 10/09/18 13:11 Blood Blood Culture - Final 10/09/18 15:12 Head Gram Stain - Final 10/09/18 15:12 Head Wound Culture - Final Methicillin Resis Staph Aureus 10/09/18 19:15 Scalp Gram Stain - Final 10/09/18 19:15 Scalp Wound Culture - Final Methicillin Resis Staph Aureus 10/09/18 19:10 Face Gram Stain - Final 10/09/18 19:10 Face Wound Culture - Final Methicillin Resis Staph Aureus Laboratory WBC 8.7 X10^3/uL (3.6-10.0) 10/18/18 04:09 RBC 4.00 X10^6/uL (4.7-6.0) L 10/18/18 04:09 Hgb 11.7 g/dL (13.5-18.0) L 10/18/18 04:09 Hct 35.6 % (42.0-54.0) L 10/18/18 04:09 MCV 89.0 fL (80.0-100.0) 10/18/18 04:09 MCH 29.3 pg (27.0-34.0) 10/18/18 04:09 MCHC 33.0 g/dL (33.0-35.0) 10/18/18 04:09 RDW 15.4 % (11.6-16.5) 10/18/18 04:09 Plt Count 414 X10^3/uL (150.0-450.0) 10/18/18 04:09 MPV 7.1 fL (7.4-11.0) L 10/18/18 04:09 Neut % (Auto) 60.8 % (42.0-75.0) 10/18/18 04:09 Lymph % (Auto) 28.4 % (21.0-51.0) 10/18/18 04:09 [place] % (Auto) 6.9 % (0.0-13.0) 10/18/18 04:09 Eos % (Auto) 3.2 % (0.9-2.9) H 10/18/18 04:09 Baso % (Auto) 0.7 % (0.2-1.0) 10/18/18 04:09 Neut # (Auto) 5.3 x10^3/uL (2.2-4.8) H 10/18/18 04:09 Lymph # (Auto) 2.5 X10^3/uL (1.3-2.9) 10/18/18 04:09 [place] # (Auto) 0.6 x10^3/uL (0.3-0.8) 10/18/18 04:09 Eos # (Auto) 0.3 x10^3/uL (0.0-0.2) H 10/18/18 04:09 Baso # (Auto) 0.1 X10^3/uL (0.0-0.1) 10/18/18 04:09 Absolute Nucleated RBC 0.0 /100WBC 10/18/18 04:09 ESR 18 MM/HOUR (0-15) H 10/14/18 05:20 Sodium 137 mmol/L (136-145) 10/18/18 04:09 Corrected Sodium 140 mmol/L (136-145) 10/18/18 04:09 Potassium 3.5 mmol/L (3.5-5.1) 10/18/18 04:09 Chloride 102 mmol/L (98-107) 10/18/18 04:09 Carbon Dioxide 28.8 mmol/L (21-32) 10/18/18 04:09 BUN 9 mg/dL (7-18) 10/18/18 04:09 Creatinine 0.61 mg/dL (0.70-1.30) L 10/18/18 21:35 Est GFR (MDRD) Af Amer > 60 (>60) 10/18/18 04:09 Est GFR (MDRD) Non-Af > 60 (>60) 10/18/18 04:09 Glucose 218 mg/dL (65-99) H 10/18/18 04:09 POC Glucose (mg/dL) 167 mg/dL (65-99) H 10/18/18 20:58 Lactic Acid 0.5 mmol/L (0.4-2.0) 10/09/18 13:11 Calcium 8.2 mg/dL (8.5-10.1) L 10/18/18 04:09 Corrected Calcium 9.3 mg/dL (8.5-10.1) 10/18/18 04:09 Total Bilirubin 0.10 mg/dL (0.2-1.0) L 10/18/18 04:09 AST 28 Units/L (15-37) 10/18/18 04:09 ALT 66 Units/L (12-78) 10/18/18 04:09 Alkaline Phosphatase 116 Units/L (46-116) 10/18/18 04:09 C-Reactive Protein 7.30 mg/L (0-3.0) H 10/14/18 05:20 Total Protein 5.7 g/dL (6.4-8.2) L 10/18/18 04:09 Albumin 2.6 g/dL (3.4-5.0) L 10/18/18 04:09 Globulin 3.1 g/dL (2.5-4.5) 10/18/18 04:09 Albumin/Globulin Ratio 0.8 Ratio (1.1-2.1) L 10/18/18 04:09 Specimen Type Clean catch urine 10/09/18 14:19 Urine Color Yellow (YELLOW) 10/09/18 14:19 Urine Appearance Clear (CLEAR) 10/09/18 14:19 Urine pH 7.0 (5.0 - 8.0) 10/09/18 14:19 Ur Specific [place] 1.010 (1.000-1.030) 10/09/18 14:19 Urine Protein Negative (NEGATIVE) 10/09/18 14:19 Urine Glucose (UA) Negative (NEGATIVE) 10/09/18 14:19 Urine Ketones Negative (NEGATIVE) 10/09/18 14:19 Urine Occult Blood Negative (NEGATIVE) 10/09/18 14:19 Urine Nitrite Negative (NEGATIVE) 10/09/18 14:19 Urine Bilirubin Negative (NEGATIVE) 10/09/18 14:19 Urine Urobilinogen Normal (NORMAL) 10/09/18 14:19 Ur Leukocyte Esterase Negative (NEGATIVE) 10/09/18 14:19 Vancomycin Trough 12.6 ug/mL (15-20) L 10/18/18 21:35 Random Vancomycin 11.5 ug/mL 10/11/18 21:40 Salicylates < 2.8 mg/dL (2.8-20) L 10/09/18 13:11 Urine Opiates Screen Negative (NEG=<300) 10/09/18 14:19 Urine Methadone Screen Negative (NEG=<300) 10/09/18 14:19 Acetaminophen 2.9 ug/mL (10-30) L 10/09/18 13:11 Ur Barbiturates Screen Negative (NEG=<200) 10/09/18 14:19 Ur Phencyclidine Scrn Negative (NEG=<25) 10/09/18 14:19 Ur Amphetamines Screen Positive (NEG=<1000) 10/09/18 14:19 U Benzodiazepines Scrn Negative (NEG=<200) 10/09/18 14:19 Urine Cocaine Screen Positive (NEG=<300) 10/09/18 14:19 U Marijuana (THC) Screen Negative (NEG=<50) 10/09/18 14:19 Ethyl Alcohol mg/dL < 3 mg/dL (0-19.9) 10/09/18 13:11 Tissue Pathology To follow 10/09/18 20:50 - Plan (1) Abscess or cellulitis of scalp Status: Acute Plan: WOUND CARE, VANCOMYCIN IV, LEVAQUIN IV, CONTINUE TO MONITOR (2) Cellulitis, face Status: Acute Plan: WOUND CARE, VANCOMYCIN IV, LEVAQUIN IV, CONTINUE TO MONITOR (3) Substance abuse Status: Acute
[2018-10-19] MEDS: NS 1000 ML 1,000 ML IV SCH ×3 (00:39→14:16)
[2018-10-19] MEDS: VANCOMYCIN HCL 1 GM VIAL 1 G in D5W 250 ML IV 250 ML IV SCH ×3 (05:02→21:07)
[2018-10-19] MEDS: NEURONTIN CAP 100 MG PO SCH ×3 (05:02→21:08)
[2018-10-19 05:17] LABS: BASOPHILS % (AUTO) 0.3 % (0.2-1.0); EOSINOPHILS # (AUTO) 0.3 x10^3/uL (0.0-0.2); EOSINOPHILS % (AUTO) 2.9 % (0.9-2.9); HEMATOCRIT 37.7 % (42.0-54.0); HEMOGLOBIN 12.5 g/dL (13.5-18.0); LYMPHOCYTES # (AUTO) 3.2 X10^3/uL (1.3-2.9); LYMPHOCYTES % (AUTO) 30.4 % (21.0-51.0); MEAN CORPUSCULAR HEMOGLOBIN 29.4 pg (27.0-34.0); MEAN CORPUSCULAR HGB CONC 33.2 g/dL (33.0-35.0); MEAN CORPUSCULAR VOLUME 88.6 fL (80.0-100.0); MEAN PLATELET VOLUME 7.3 fL (7.4-11.0); MONOCYTES # (AUTO) 0.6 x10^3/uL (0.3-0.8); MONOCYTES % (AUTO) 5.4 % (0.0-13.0); NEUTROPHILS # (AUTO) 6.4 x10^3/uL (2.2-4.8); PLATELET COUNT 420 X10^3/uL (150.0-450.0); RED BLOOD COUNT 4.25 X10^6/uL (4.7-6.0); RED CELL DISTRIBUTION WIDTH 15.5 % (11.6-16.5); WHITE BLOOD COUNT 10.5 X10^3/uL (3.6-10.0)
[2018-10-19 05:33] LABS: ALANINE AMINOTRANSFERASE 54 Units/L (12-78); ALKALINE PHOSPHATASE 103 Units/L (46-116); ASPARTATE AMINO TRANSFERASE 17 Units/L (15-37); BLOOD UREA NITROGEN 10 mg/dL (7-18); CALCIUM 8.1 mg/dL (8.5-10.1); CARBON DIOXIDE 28.6 mmol/L (21-32); CHLORIDE 103 mmol/L (98-107); COR NA(FOR HYPERGLY) 140 mmol/L (136-145); CREATININE 0.44 mg/dL (0.70-1.30); SODIUM 139 mmol/L (136-145); eGFR NON BLACK RACES > 60 (>60)
[2018-10-19 05:34] LABS: ALBUMIN 2.7 g/dL (3.4-5.0); COR CA(FOR HYPOALB) 9.1 mg/dL (8.5-10.1); TOTAL PROTEIN 5.9 g/dL (6.4-8.2)
[2018-10-19] MEDS: MAGNESIUM SULFATE 1 GRAM/100 mL PREMIX 2 G/200 ML BAG IV SCH ×2 (06:44→07:59)
[2018-10-19] MEDS: PROTONIX TAB 40 MG PO SCH (08:00)
[2018-10-19] MEDS: LOTENSIN TAB 10 MG PO SCH (08:00)
[2018-10-19] MEDS: MOBIC TAB 15 MG PO SCH (08:01)
[2018-10-19] MEDS: TAB-A-VITE PO SCH (08:01)
[2018-10-19] MEDS: NORVASC TAB 10 MG PO SCH (08:01)
[2018-10-19] MEDS: VITAMIN C PO SCH (08:01)
[2018-10-19] MEDS: K-DUR TAB 20 MEQ PO SCH (08:01)
[2018-10-19] MEDS: NICOTINE PATCH TD SCH (08:02)
[2018-10-19] MEDS: ROXICODONE TAB 5 MG PO PRN ×2 (14:06→20:31)
[2018-10-19] MEDS: MOTRIN TAB 600 MG PO PRN (16:10)
[2018-10-19] MEDS ORDERED: ZOLOFT PO ONE (20:01)
[2018-10-19] MEDS: TRICOR TAB 48 MG PO SCH (20:29)
[2018-10-19] MEDS: ZOLOFT PO SCH (20:29)
[2018-10-19] MEDS: KLONOPIN TAB 1 MG PO SCH (20:29)
[2018-10-19] MEDS: FLOMAX PO SCH (20:29)
[2018-10-19] MEDS: ELAVIL PO SCH (20:30)
[2018-10-19] MEDS: SNACK - Diabetic Appropriate PO SCH (21:06)
[2018-10-19] MEDS: ZyrTEC TAB 10 MG PO SCH (21:07)
[2018-10-20] MEDS: ROXICODONE TAB 5 MG PO PRN ×3 (02:03→21:48)
[2018-10-20] MEDS: NS 1000 ML 1,000 ML IV SCH ×2 (03:49→21:46)
[2018-10-20] MEDS: MOTRIN TAB 600 MG PO PRN ×2 (05:01→16:16)
[2018-10-20] MEDS: NEURONTIN CAP 100 MG PO SCH ×3 (05:01→21:48)
[2018-10-20] MEDS: HumuLIN R SUBCUT PRN ×2 (05:31→16:17)
[2018-10-20 06:45] LABS: BASOPHILS % (AUTO) 0.6 % (0.2-1.0); EOSINOPHILS # (AUTO) 0.3 x10^3/uL (0.0-0.2); EOSINOPHILS % (AUTO) 3.8 % (0.9-2.9); HEMATOCRIT 36.1 % (42.0-54.0); HEMOGLOBIN 12.1 g/dL (13.5-18.0); LYMPHOCYTES # (AUTO) 3.1 X10^3/uL (1.3-2.9); LYMPHOCYTES % (AUTO) 34.3 % (21.0-51.0); MEAN CORPUSCULAR HEMOGLOBIN 29.6 pg (27.0-34.0); MEAN CORPUSCULAR HGB CONC 33.6 g/dL (33.0-35.0); MEAN CORPUSCULAR VOLUME 88.2 fL (80.0-100.0); MEAN PLATELET VOLUME 7.5 fL (7.4-11.0); MONOCYTES # (AUTO) 0.6 x10^3/uL (0.3-0.8); MONOCYTES % (AUTO) 6.6 % (0.0-13.0); NEUTROPHILS # (AUTO) 4.9 x10^3/uL (2.2-4.8); NEUTROPHILS % (AUTO) 54.7 % (42.0-75.0); PLATELET COUNT 408 X10^3/uL (150.0-450.0); RED BLOOD COUNT 4.09 X10^6/uL (4.7-6.0); RED CELL DISTRIBUTION WIDTH 15.4 % (11.6-16.5); WHITE BLOOD COUNT 8.9 X10^3/uL (3.6-10.0)
[2018-10-20 07:01] LABS: ALANINE AMINOTRANSFERASE 38 Units/L (12-78); ALBUMIN 2.7 g/dL (3.4-5.0); ALKALINE PHOSPHATASE 102 Units/L (46-116); ASPARTATE AMINO TRANSFERASE 9 Units/L (15-37); BLOOD UREA NITROGEN 14 mg/dL (7-18); CALCIUM 8.3 mg/dL (8.5-10.1); CARBON DIOXIDE 27.2 mmol/L (21-32); CHLORIDE 103 mmol/L (98-107); COR CA(FOR HYPOALB) 9.3 mg/dL (8.5-10.1); COR NA(FOR HYPERGLY) 143 mmol/L (136-145); CREATININE 0.53 mg/dL (0.70-1.30); MAGNESIUM 1.6 mg/dL (1.7-2.9); SODIUM 140 mmol/L (136-145); TOTAL PROTEIN 5.9 g/dL (6.4-8.2); eGFR NON BLACK RACES > 60 (>60)
--- NOTE | 2018-10-20 07:20 | DR.PROGNOT ---
Hospital Progress Notes - Progress Note for Day of: Progress Note Date: 10/20/18 - Chief Complaint Chief Complaint: scalp wound is much better with granulating tissue and minimal cellulitis - Past Medical Family Social History Past Med/Fam/Surg Hx: No changes since H&P Allergies: Allergies SULFA DRUGS Allergy (Uncoded 10/09/18 12:30) - Review Of Systems ROS: No change since H&P - Vital Signs Vital Signs: Temperature 97.9 F Pulse Rate [Left Brachial] 111 Pulse Rate 101 Respiratory Rate 20 Blood Pressure [Right Arm] 157/80 Blood Pressure [Left Arm] 142/87 Blood Pressure 138/78 O2 Sat by Pulse Oximetry 94 - Physical Exam Oriented: Normal Eyes: Normal Ear: Normal Nose: Normal Throat: Normal Respiratory: Diminished Cardiovascular: Tachycardia. negative: S3, S4, Murmur : Normal GI:Auscultation: Normal GI:Palpation: Normal GI: Tenderness: Normal Skin: Tender, Wound (6 x 6 cm open wound , granulating and with minimal drainage ..) Musculoskeletal: Normal Psychiatric: Normal Mood Description: Calm Affect: Normal Speech Pattern: Clear, Appropriate - Laboratory and Diagnostics Result Diagrams: 10/20/18 04:55 10/20/18 04:55 Labs: 10/09/18 16:00 Blood Blood Culture - Final 10/09/18 13:11 Blood Blood Culture - Final 10/09/18 15:12 Head Gram Stain - Final 10/09/18 15:12 Head Wound Culture - Final Methicillin Resis Staph Aureus 10/09/18 19:15 Scalp Gram Stain - Final 10/09/18 19:15 Scalp Wound Culture - Final Methicillin Resis Staph Aureus 10/09/18 19:10 Face Gram Stain - Final 10/09/18 19:10 Face Wound Culture - Final Methicillin Resis Staph Aureus Laboratory WBC 8.9 X10^3/uL (3.6-10.0) 10/20/18 04:55 RBC 4.09 X10^6/uL (4.7-6.0) L 10/20/18 04:55 Hgb 12.1 g/dL (13.5-18.0) L 10/20/18 04:55 Hct 36.1 % (42.0-54.0) L 10/20/18 04:55 MCV 88.2 fL (80.0-100.0) 10/20/18 04:55 MCH 29.6 pg (27.0-34.0) 10/20/18 04:55 MCHC 33.6 g/dL (33.0-35.0) 10/20/18 04:55 RDW 15.4 % (11.6-16.5) 10/20/18 04:55 Plt Count 408 X10^3/uL (150.0-450.0) 10/20/18 04:55 MPV 7.5 fL (7.4-11.0) 10/20/18 04:55 Neut % (Auto) 54.7 % (42.0-75.0) 10/20/18 04:55 Lymph % (Auto) 34.3 % (21.0-51.0) 10/20/18 04:55 [place] % (Auto) 6.6 % (0.0-13.0) 10/20/18 04:55 Eos % (Auto) 3.8 % (0.9-2.9) H 10/20/18 04:55 Baso % (Auto) 0.6 % (0.2-1.0) 10/20/18 04:55 Neut # (Auto) 4.9 x10^3/uL (2.2-4.8) H 10/20/18 04:55 Lymph # (Auto) 3.1 X10^3/uL (1.3-2.9) H 10/20/18 04:55 [place] # (Auto) 0.6 x10^3/uL (0.3-0.8) 10/20/18 04:55 Eos # (Auto) 0.3 x10^3/uL (0.0-0.2) H 10/20/18 04:55 Baso # (Auto) 0.0 X10^3/uL (0.0-0.1) 10/20/18 04:55 Absolute Nucleated RBC 0.0 /100WBC 10/20/18 04:55 ESR 18 MM/HOUR (0-15) H 10/14/18 05:20 Sodium 140 mmol/L (136-145) 10/20/18 04:55 Corrected Sodium 143 mmol/L (136-145) 10/20/18 04:55 Potassium 3.4 mmol/L (3.5-5.1) L 10/20/18 04:55 Chloride 103 mmol/L (98-107) 10/20/18 04:55 Carbon Dioxide 27.2 mmol/L (21-32) 10/20/18 04:55 BUN 14 mg/dL (7-18) 10/20/18 04:55 Creatinine 0.53 mg/dL (0.70-1.30) L 10/20/18 04:55 Est GFR (MDRD) Af Amer > 60 (>60) 10/20/18 04:55 Est GFR (MDRD) Non-Af > 60 (>60) 10/20/18 04:55 Glucose 237 mg/dL (65-99) H 10/20/18 04:55 POC Glucose (mg/dL) 230 mg/dL (65-99) H 10/20/18 05:22 Lactic Acid 0.5 mmol/L (0.4-2.0) 10/09/18 13:11 Calcium 8.3 mg/dL (8.5-10.1) L 10/20/18 04:55 Corrected Calcium 9.3 mg/dL (8.5-10.1) 10/20/18 04:55 Magnesium 1.6 mg/dL (1.7-2.9) L 10/20/18 04:55 Total Bilirubin 0.10 mg/dL (0.2-1.0) L 10/20/18 04:55 AST 9 Units/L (15-37) L 10/20/18 04:55 ALT 38 Units/L (12-78) 10/20/18 04:55 Alkaline Phosphatase 102 Units/L (46-116) 10/20/18 04:55 C-Reactive Protein 7.30 mg/L (0-3.0) H 10/14/18 05:20 Total Protein 5.9 g/dL (6.4-8.2) L 10/20/18 04:55 Albumin 2.7 g/dL (3.4-5.0) L 10/20/18 04:55 Globulin 3.2 g/dL (2.5-4.5) 10/20/18 04:55 Albumin/Globulin Ratio 0.8 Ratio (1.1-2.1) L 10/20/18 04:55 Specimen Type Clean catch urine 10/09/18 14:19 Urine Color Yellow (YELLOW) 10/09/18 14:19 Urine Appearance Clear (CLEAR) 10/09/18 14:19 Urine pH 7.0 (5.0 - 8.0) 10/09/18 14:19 Ur Specific [place] 1.010 (1.000-1.030) 10/09/18 14:19 Urine Protein Negative (NEGATIVE) 10/09/18 14:19 Urine Glucose (UA) Negative (NEGATIVE) 10/09/18 14:19 Urine Ketones Negative (NEGATIVE) 10/09/18 14:19 Urine Occult Blood Negative (NEGATIVE) 10/09/18 14:19 Urine Nitrite Negative (NEGATIVE) 10/09/18 14:19 Urine Bilirubin Negative (NEGATIVE) 10/09/18 14:19 Urine Urobilinogen Normal (NORMAL) 10/09/18 14:19 Ur Leukocyte Esterase Negative (NEGATIVE) 10/09/18 14:19 Vancomycin Trough 11.0 ug/mL (15-20) L 10/20/18 04:55 Random Vancomycin 11.5 ug/mL 10/11/18 21:40 Salicylates < 2.8 mg/dL (2.8-20) L 10/09/18 13:11 Urine Opiates Screen Negative (NEG=<300) 10/09/18 14:19 Urine Methadone Screen Negative (NEG=<300) 10/09/18 14:19 Acetaminophen 2.9 ug/mL (10-30) L 10/09/18 13:11 Ur Barbiturates Screen Negative (NEG=<200) 10/09/18 14:19 Ur Phencyclidine Scrn Negative (NEG=<25) 10/09/18 14:19 Ur Amphetamines Screen Positive (NEG=<1000) 10/09/18 14:19 U Benzodiazepines Scrn Negative (NEG=<200) 10/09/18 14:19 Urine Cocaine Screen Positive (NEG=<300) 10/09/18 14:19 U Marijuana (THC) Screen Negative (NEG=<50) 10/09/18 14:19 Ethyl Alcohol mg/dL < 3 mg/dL (0-19.9) 10/09/18 13:11 Tissue Pathology To follow 10/09/18 20:50 - Assessment and Plan 1: . s/p debridement of large scalp and facial abscess . DM.COPD . Drug abuse. same POP care , IV ATB .Diabetic control. repeat culture .. if clean will coner with skin graft early next week.. future skin graft. - Problem Patient Problems: Patient Problems Substance abuse (Acute) F19.10 Cellulitis, face (Acute) L03.211 Abscess or cellulitis of scalp (Acute) L03.811
[2018-10-20] MEDS ORDERED: POTASSIUM CHL 60 MEQ/NS 0.45% 500 ML IV PRN (07:55)
[2018-10-20] MEDS ORDERED: K-DUR TAB 20 MEQ PO PRN (07:55)
[2018-10-20] MEDS ORDERED: MICRO K EXTEN CAP 10 MEQ PO PRN (07:55)
[2018-10-20] MEDS ORDERED: POTASSIUM CHL 40 MEQ/NS 0.45% 500 ML IV PRN (07:55)
[2018-10-20] MEDS ORDERED: POTASSIUM CHLORIDE LIQ 20 MEQ UDC PO PRN (07:55)
[2018-10-20] MEDS ORDERED: K-RIDER 10 MEQ/NS 100 ML 10 MEQ/100 ML BAG IV PRN (07:55)
[2018-10-20] MEDS ORDERED: KLOR-CON PO PRN (07:55)
[2018-10-20] MEDS: VANCOMYCIN HCL 1 GM VIAL 1 G in D5W 250 ML IV 250 ML IV SCH ×3 (09:05→21:47)
[2018-10-20] MEDS: PROTONIX TAB 40 MG PO SCH (09:06)
[2018-10-20] MEDS: XANAX PO PRN ×2 (09:06→21:47)
[2018-10-20] MEDS: NORVASC TAB 10 MG PO SCH (09:07)
[2018-10-20] MEDS: LOTENSIN TAB 10 MG PO SCH (09:07)
[2018-10-20] MEDS: TAB-A-VITE PO SCH (09:07)
[2018-10-20] MEDS: K-DUR TAB 20 MEQ PO SCH (09:07)
[2018-10-20] MEDS: MOBIC TAB 15 MG PO SCH (09:07)
[2018-10-20] MEDS: VITAMIN C PO SCH (09:07)
[2018-10-20] MEDS: NICOTINE PATCH TD SCH (09:07)
[2018-10-20] MEDS: SNACK - Diabetic Appropriate PO SCH (20:00)
[2018-10-20] MEDS ORDERED: ZOLOFT PO ONE (20:04)
[2018-10-20] MEDS: ZyrTEC TAB 10 MG PO SCH (21:47)
[2018-10-20] MEDS: ZOLOFT PO SCH (21:48)
[2018-10-20] MEDS: ELAVIL PO SCH (21:48)
[2018-10-20] MEDS: KLONOPIN TAB 1 MG PO SCH (21:48)
[2018-10-20] MEDS: TRICOR TAB 48 MG PO SCH (21:48)
[2018-10-20] MEDS: FLOMAX PO SCH (21:48)
[2018-10-21] MEDS: VANCOMYCIN HCL 1 GM VIAL 1 G in D5W 250 ML IV 250 ML IV SCH ×3 (06:14→21:25)
[2018-10-21] MEDS: NEURONTIN CAP 100 MG PO SCH ×3 (06:15→21:26)
[2018-10-21] MEDS: HumuLIN R SUBCUT PRN ×2 (06:15→16:21)
[2018-10-21 06:41] LABS: BASOPHILS % (AUTO) 0.5 % (0.2-1.0); EOSINOPHILS # (AUTO) 0.4 x10^3/uL (0.0-0.2); EOSINOPHILS % (AUTO) 4.1 % (0.9-2.9); HEMATOCRIT 36.9 % (42.0-54.0); HEMOGLOBIN 12.6 g/dL (13.5-18.0); LYMPHOCYTES # (AUTO) 3.4 X10^3/uL (1.3-2.9); LYMPHOCYTES % (AUTO) 37.2 % (21.0-51.0); MEAN CORPUSCULAR HEMOGLOBIN 29.9 pg (27.0-34.0); MEAN CORPUSCULAR HGB CONC 34.1 g/dL (33.0-35.0); MEAN CORPUSCULAR VOLUME 87.6 fL (80.0-100.0); MEAN PLATELET VOLUME 7.3 fL (7.4-11.0); MONOCYTES # (AUTO) 0.6 x10^3/uL (0.3-0.8); MONOCYTES % (AUTO) 6.7 % (0.0-13.0); NEUTROPHILS # (AUTO) 4.7 x10^3/uL (2.2-4.8); NEUTROPHILS % (AUTO) 51.5 % (42.0-75.0); PLATELET COUNT 420 X10^3/uL (150.0-450.0); RED BLOOD COUNT 4.21 X10^6/uL (4.7-6.0); RED CELL DISTRIBUTION WIDTH 15.4 % (11.6-16.5); WHITE BLOOD COUNT 9.2 X10^3/uL (3.6-10.0)
[2018-10-21 06:54] LABS: ALANINE AMINOTRANSFERASE 32 Units/L (12-78); ALBUMIN 2.9 g/dL (3.4-5.0); ALKALINE PHOSPHATASE 103 Units/L (46-116); ASPARTATE AMINO TRANSFERASE 8 Units/L (15-37); BLOOD UREA NITROGEN 12 mg/dL (7-18); CALCIUM 8.6 mg/dL (8.5-10.1); CARBON DIOXIDE 30.6 mmol/L (21-32); CHLORIDE 104 mmol/L (98-107); COR CA(FOR HYPOALB) 9.5 mg/dL (8.5-10.1); COR NA(FOR HYPERGLY) 142 mmol/L (136-145); CREATININE 0.44 mg/dL (0.70-1.30); MAGNESIUM 1.8 mg/dL (1.7-2.9); SODIUM 141 mmol/L (136-145); TOTAL PROTEIN 6.3 g/dL (6.4-8.2); eGFR NON BLACK RACES > 60 (>60)
[2018-10-21] MEDS ORDERED: BACTROBAN TOPICAL OINT TOP SCH (09:00)
[2018-10-21] MEDS: NICOTINE PATCH TD SCH (09:24)
[2018-10-21] MEDS: TAB-A-VITE PO SCH (09:26)
[2018-10-21] MEDS: NORVASC TAB 10 MG PO SCH (09:26)
[2018-10-21] MEDS: LOTENSIN TAB 10 MG PO SCH (09:26)
[2018-10-21] MEDS: VITAMIN C PO SCH (09:26)
[2018-10-21] MEDS: PROTONIX TAB 40 MG PO SCH (09:26)
[2018-10-21] MEDS: MOBIC TAB 15 MG PO SCH (09:26)
[2018-10-21] MEDS: K-DUR TAB 20 MEQ PO SCH (09:26)
[2018-10-21] MEDS: MOTRIN TAB 600 MG PO PRN (10:30)
[2018-10-21] MEDS: MAGNESIUM SULFATE 1 GRAM/100 mL PREMIX 1 GM/100 ML BAG IV PRN ×2 (11:17→12:28)
[2018-10-21 14:16] LABS: CREATININE 0.66 mg/dL (0.70-1.30); VANCOMYCIN,TROUGH 12.6 ug/mL (15-20)
[2018-10-21] MEDS: ROXICODONE TAB 5 MG PO PRN ×2 (14:32→21:26)
[2018-10-21] MEDS ORDERED: ZOLOFT PO ONE (20:19)
[2018-10-21] MEDS: SNACK - Diabetic Appropriate PO SCH (20:30)
[2018-10-21] MEDS: FLOMAX PO SCH (21:26)
[2018-10-21] MEDS: ZOLOFT PO SCH (21:26)
[2018-10-21] MEDS: ZyrTEC TAB 10 MG PO SCH (21:26)
[2018-10-21] MEDS: TRICOR TAB 48 MG PO SCH (21:26)
[2018-10-21] MEDS: XANAX PO PRN (21:26)
[2018-10-21] MEDS: ELAVIL PO SCH (21:26)
[2018-10-21] MEDS: KLONOPIN TAB 1 MG PO SCH (21:26)
[2018-10-21] MEDS: NS 1000 ML 1,000 ML IV SCH (21:27)
[2018-10-22] MEDS: NEURONTIN CAP 100 MG PO SCH ×2 (05:38→13:38)
[2018-10-22] MEDS: VANCOMYCIN HCL 1 GM VIAL 1 G in D5W 250 ML IV 250 ML IV SCH (05:38)
[2018-10-22] MEDS: HumuLIN R SUBCUT PRN (05:39)
[2018-10-22] MEDS: NS 1000 ML 1,000 ML IV SCH (05:42)
[2018-10-22 06:52] LABS: BASOPHILS # (AUTO) 0.1 X10^3/uL (0.0-0.1); BASOPHILS % (AUTO) 0.8 % (0.2-1.0); EOSINOPHILS # (AUTO) 0.3 x10^3/uL (0.0-0.2); EOSINOPHILS % (AUTO) 3.9 % (0.9-2.9); HEMOGLOBIN 12.7 g/dL (13.5-18.0); LYMPHOCYTES # (AUTO) 3.4 X10^3/uL (1.3-2.9); LYMPHOCYTES % (AUTO) 38.5 % (21.0-51.0); MEAN CORPUSCULAR HEMOGLOBIN 29.4 pg (27.0-34.0); MEAN CORPUSCULAR HGB CONC 33.4 g/dL (33.0-35.0); MEAN CORPUSCULAR VOLUME 88.2 fL (80.0-100.0); MEAN PLATELET VOLUME 7.6 fL (7.4-11.0); MONOCYTES # (AUTO) 0.6 x10^3/uL (0.3-0.8); MONOCYTES % (AUTO) 6.5 % (0.0-13.0); NEUTROPHILS # (AUTO) 4.5 x10^3/uL (2.2-4.8); NEUTROPHILS % (AUTO) 50.3 % (42.0-75.0); PLATELET COUNT 409 X10^3/uL (150.0-450.0); RED BLOOD COUNT 4.31 X10^6/uL (4.7-6.0); RED CELL DISTRIBUTION WIDTH 15.8 % (11.6-16.5); WHITE BLOOD COUNT 8.9 X10^3/uL (3.6-10.0)
[2018-10-22 07:10] LABS: ALANINE AMINOTRANSFERASE 27 Units/L (12-78); ALBUMIN 2.9 g/dL (3.4-5.0); ALKALINE PHOSPHATASE 92 Units/L (46-116); ASPARTATE AMINO TRANSFERASE 10 Units/L (15-37); BLOOD UREA NITROGEN 14 mg/dL (7-18); CALCIUM 8.3 mg/dL (8.5-10.1); CHLORIDE 102 mmol/L (98-107); COR CA(FOR HYPOALB) 9.2 mg/dL (8.5-10.1); COR NA(FOR HYPERGLY) 139 mmol/L (136-145); MAGNESIUM 1.7 mg/dL (1.7-2.9); SODIUM 137 mmol/L (136-145); TOTAL PROTEIN 6.1 g/dL (6.4-8.2); eGFR NON BLACK RACES > 60 (>60)
[2018-10-22] MEDS: NICOTINE PATCH TD SCH (08:38)
[2018-10-22] MEDS: PROTONIX TAB 40 MG PO SCH (08:39)
[2018-10-22] MEDS: LOTENSIN TAB 10 MG PO SCH ×2 (08:39→10:30)
[2018-10-22] MEDS: K-DUR TAB 20 MEQ PO SCH (08:40)
[2018-10-22] MEDS: VITAMIN C PO SCH (08:42)
[2018-10-22] MEDS: MOBIC TAB 15 MG PO SCH (08:42)
[2018-10-22] MEDS: NORVASC TAB 10 MG PO SCH (08:43)
[2018-10-22] MEDS: TAB-A-VITE PO SCH (08:44)
[2018-10-22 12:35] VITALS: BP 132/73
--- NOTE | 2018-10-22 13:48 | PCM.PROG ---
Progress Note - Progress Note for Day of Date of Exam: 10/22/18 - Subjective Subjective: IS BEING TREATED FOR SCALP ABSCESSES, CELLULITIS TO THE SCALP AND LEFT SIDE FACE, + FOR MRSA AND CUSTODIAL SUBSTANCE ABUSE. TODAY, HE IS LYING IN BED ON MORNING ROUNDS. DENIES ANY FEVER, N/V. PT IS CURRENTLY ON IV ATBX WITH PRN PAIN MEDICATION. WBC 8.9, CREAT 0.50. PT IS CONSULTED BY DR CULVER WITH PLANS FOR SKIN GRAFT AND THEN [facility] PLACEMENT FOR WOUND CARE BECAUSE PT IS UNABLE TO CARE FOR COMPLICATED WOUND AT HOME. PT IS AGREEING TO PLAN OF CARE. - Past Medical Family Social History Past Med/Fam/Surg Hx: No changes since H&P Allergies: Allergies SULFA DRUGS Allergy (Uncoded 10/09/18 12:30) - Review of Systems ROS: No change since H&P - Vital Signs and I&O's Vital Signs: Temperature 98.4 F Pulse Rate [Left Brachial] 81 Pulse Rate 101 Respiratory Rate 18 Blood Pressure [Right Arm] 132/73 Blood Pressure [Left Arm] 134/67 Blood Pressure 138/78 O2 Sat by Pulse Oximetry 94 Intake and Output: Intake & Output 10/20/18 10/21/18 10/22/18 10/23/18 11:59 11:59 11:59 11:59 Intake Total 2750 / 2750 1920 / 1920 2160 / 2160 Output Total 3100 / 3100 4020 / 4020 4600 / 4600 Balance -350 / -350 -2100 / -2100 -2440 / -2440 - Physical Exam Oriented: Normal Eyes: Normal Ear: Normal Nose: Normal Throat: Normal Respiratory: Diminished Cardiovascular: Tachycardia. negative: S3, S4, Murmur : Normal Auscultation: Bowel Sounds: Normal Tenderness: Normal Skin: Tender, Wound (6 x 6 cm open wound , granulating and with minimal drainage ..) Musculoskeletal: Normal Psychiatric: Normal Mood Description: Calm Affect: Normal Speech Pattern: Clear, Appropriate - Laboratory and Diagnostics Result Diagrams: 10/22/18 05:00 10/22/18 05:00 Labs: 10/20/18 09:22 Head Gram Stain - Final 10/20/18 09:22 Head Wound Culture - Final Methicillin Resis Staph Aureus 10/09/18 16:00 Blood Blood Culture - Final 10/09/18 13:11 Blood Blood Culture - Final 10/09/18 15:12 Head Gram Stain - Final 10/09/18 15:12 Head Wound Culture - Final Methicillin Resis Staph Aureus 10/09/18 19:15 Scalp Gram Stain - Final 10/09/18 19:15 Scalp Wound Culture - Final Methicillin Resis Staph Aureus 10/09/18 19:10 Face Gram Stain - Final 10/09/18 19:10 Face Wound Culture - Final Methicillin Resis Staph Aureus Laboratory WBC 8.9 X10^3/uL (3.6-10.0) 10/22/18 05:00 RBC 4.31 X10^6/uL (4.7-6.0) L 10/22/18 05:00 Hgb 12.7 g/dL (13.5-18.0) L 10/22/18 05:00 Hct 38.0 % (42.0-54.0) L 10/22/18 05:00 MCV 88.2 fL (80.0-100.0) 10/22/18 05:00 MCH 29.4 pg (27.0-34.0) 10/22/18 05:00 MCHC 33.4 g/dL (33.0-35.0) 10/22/18 05:00 RDW 15.8 % (11.6-16.5) 10/22/18 05:00 Plt Count 409 X10^3/uL (150.0-450.0) 10/22/18 05:00 MPV 7.6 fL (7.4-11.0) 10/22/18 05:00 Neut % (Auto) 50.3 % (42.0-75.0) 10/22/18 05:00 Lymph % (Auto) 38.5 % (21.0-51.0) 10/22/18 05:00 [place] % (Auto) 6.5 % (0.0-13.0) 10/22/18 05:00 Eos % (Auto) 3.9 % (0.9-2.9) H 10/22/18 05:00 Baso % (Auto) 0.8 % (0.2-1.0) 10/22/18 05:00 Neut # (Auto) 4.5 x10^3/uL (2.2-4.8) 10/22/18 05:00 Lymph # (Auto) 3.4 X10^3/uL (1.3-2.9) H 10/22/18 05:00 [place] # (Auto) 0.6 x10^3/uL (0.3-0.8) 10/22/18 05:00 Eos # (Auto) 0.3 x10^3/uL (0.0-0.2) H 10/22/18 05:00 Baso # (Auto) 0.1 X10^3/uL (0.0-0.1) 10/22/18 05:00 Absolute Nucleated RBC 0.0 /100WBC 10/22/18 05:00 ESR 18 MM/HOUR (0-15) H 10/14/18 05:20 Sodium 137 mmol/L (136-145) 10/22/18 05:00 Corrected Sodium 139 mmol/L (136-145) 10/22/18 05:00 Potassium 3.4 mmol/L (3.5-5.1) L 10/22/18 05:00 Chloride 102 mmol/L (98-107) 10/22/18 05:00 Carbon Dioxide 27.0 mmol/L (21-32) 10/22/18 05:00 BUN 14 mg/dL (7-18) 10/22/18 05:00 Creatinine 0.50 mg/dL (0.70-1.30) L 10/22/18 05:00 Est GFR (MDRD) Af Amer > 60 (>60) 10/22/18 05:00 Est GFR (MDRD) Non-Af > 60 (>60) 10/22/18 05:00 Glucose 184 mg/dL (65-99) H 10/22/18 05:00 POC Glucose (mg/dL) 118 mg/dL (65-99) H 10/22/18 11:35 Lactic Acid 0.5 mmol/L (0.4-2.0) 10/09/18 13:11 Calcium 8.3 mg/dL (8.5-10.1) L 10/22/18 05:00 Corrected Calcium 9.2 mg/dL (8.5-10.1) 10/22/18 05:00 Magnesium 1.7 mg/dL (1.7-2.9) 10/22/18 05:00 Total Bilirubin 0.10 mg/dL (0.2-1.0) L 10/22/18 05:00 AST 10 Units/L (15-37) L 10/22/18 05:00 ALT 27 Units/L (12-78) 10/22/18 05:00 Alkaline Phosphatase 92 Units/L (46-116) 10/22/18 05:00 C-Reactive Protein 7.30 mg/L (0-3.0) H 10/14/18 05:20 Total Protein 6.1 g/dL (6.4-8.2) L 10/22/18 05:00 Albumin 2.9 g/dL (3.4-5.0) L 10/22/18 05:00 Globulin 3.2 g/dL (2.5-4.5) 10/22/18 05:00 Albumin/Globulin Ratio 0.9 Ratio (1.1-2.1) L 10/22/18 05:00 Specimen Type Clean catch urine 10/09/18 14:19 Urine Color Yellow (YELLOW) 10/09/18 14:19 Urine Appearance Clear (CLEAR) 10/09/18 14:19 Urine pH 7.0 (5.0 - 8.0) 10/09/18 14:19 Ur Specific [place] 1.010 (1.000-1.030) 10/09/18 14:19 Urine Protein Negative (NEGATIVE) 10/09/18 14:19 Urine Glucose (UA) Negative (NEGATIVE) 10/09/18 14:19 Urine Ketones Negative (NEGATIVE) 10/09/18 14:19 Urine Occult Blood Negative (NEGATIVE) 10/09/18 14:19 Urine Nitrite Negative (NEGATIVE) 10/09/18 14:19 Urine Bilirubin Negative (NEGATIVE) 10/09/18 14:19 Urine Urobilinogen Normal (NORMAL) 10/09/18 14:19 Ur Leukocyte Esterase Negative (NEGATIVE) 10/09/18 14:19 Vancomycin Trough 12.6 ug/mL (15-20) L 10/21/18 11:07 Random Vancomycin 11.5 ug/mL 10/11/18 21:40 Salicylates < 2.8 mg/dL (2.8-20) L 10/09/18 13:11 Urine Opiates Screen Negative (NEG=<300) 10/09/18 14:19 Urine Methadone Screen Negative (NEG=<300) 10/09/18 14:19 Acetaminophen 2.9 ug/mL (10-30) L 10/09/18 13:11 Ur Barbiturates Screen Negative (NEG=<200) 10/09/18 14:19 Ur Phencyclidine Scrn Negative (NEG=<25) 10/09/18 14:19 Ur Amphetamines Screen Positive (NEG=<1000) 10/09/18 14:19 U Benzodiazepines Scrn Negative (NEG=<200) 10/09/18 14:19 Urine Cocaine Screen Positive (NEG=<300) 10/09/18 14:19 U Marijuana (THC) Screen Negative (NEG=<50) 10/09/18 14:19 Ethyl Alcohol mg/dL < 3 mg/dL (0-19.9) 10/09/18 13:11 Tissue Pathology To follow 10/09/18 20:50 - Plan (1) Abscess or cellulitis of scalp Status: Acute Plan: WOUND CARE, VANCOMYCIN IV, LEVAQUIN IV, CONTINUE TO MONITOR (2) MRSA (methicillin resistant staph aureus) culture positive Status: Acute (3) Substance abuse Status: Acute (4) Diabetes mellitus, type 2 Status: Chronic Qualifiers: Diabetes mellitus complication status: with neurologic complications Diabetes mellitus complication detail: with mononeuropathy Qualified Code(s): E11.41 - Type 2 diabetes mellitus with diabetic mononeuropathy (5) Depression Status: Chronic (6) Hypertension Status: Chronic Qualifiers: Hypertension type: essential hypertension Qualified Code(s): I10 - Essential (primary) hypertension (7) BPH (benign prostatic hypertrophy) Status: Chronic
== END 2018-10-22 14:55 | disposition home or self-care (01) | DRG 571 ==
LOC: ER 12:27 → MED/SURG 17:00
PROVIDERS: ADMIT Internal Medicine; ATTEND Internal Medicine
DX: F32.89 Other specified depressive episodes; L02.811 Cutaneous abscess of head [any part, except face]; L03.211 Cellulitis of face; R94.31 Abnormal electrocardiogram [ECG] [EKG]; E11.41 Type 2 diabetes mellitus with diabetic mononeuropathy; F41.8 Other specified anxiety disorders; J44.9 Chronic obstructive pulmonary disease, unspecified; R26.89 Other abnormalities of gait and mobility; E11.65 Type 2 diabetes mellitus with hyperglycemia; F14.90 Cocaine use, unspecified, uncomplicated; I10 Essential (primary) hypertension; B95.62 Methicillin resistant Staphylococcus aureus infection as the cause of diseases classified elsewhere; L03.811 Cellulitis of head [any part, except face]; N40.0 Benign prostatic hyperplasia without lower urinary tract symptoms; R51 Headache; F15.90 Other stimulant use, unspecified, uncomplicated
CPT/HCPCS: 36415; 70460; 71010; 71045; 80053; 80202; 80307; 80320; 81003; 82565; 83605; 83735; 84132; 85025; 85652; 86140; 87040; 87070; 87075; 87077; 87186; 87205; 93005; 93010; 94760; 96365; 96367; 96374; 96375; 97110; 97161; 97166; 97530; 97535; 99231; 99282; 99284; A4222; Q0177; G0434; G6038; G6039; G6040; J1170; J1815; J1885; J1956; J2250; J2704; J3010; J3370; J3475; J3490; J7030; J7040; J7060; S0181